=== PATIENT | male | born 1965 | race Caucasian/White ===

== ENCOUNTER → 2016-12-27 | Outpatient (CLI) | payer BC ==
[~2016-12-27] MED LIST: ALPR-411 PO; ASPI81TA28; ATEN-173 PO; ATOR-22 PO; EFFSR75 PO; MULT-506 PO; OMEG5CAP PO; TRAM-10 PO; VENL150T33 PO; [UNRECOGNIZED DRUG - CODE] PO; [UNRECOGNIZED DRUG - OTHER] NAE
--- NOTE | 2016-12-27 16:38 | DIAGNOSTIC IMAGING REPORT ---
LEFT HIP 2 VIEWS CLINICAL HISTORY: Left hip pain. FINDINGS: AP and frog-leg views of left hip are correlated with pelvic CT dated 09/17/2015. The skeletal structures are well mineralized. No fracture is seen. The joint space of the left hip is well maintained. Minimal sclerotic change is noted in the left sacroiliac joint. The overlying soft tissues are within normal limits. IMPRESSION: Unremarkable radiographic assessment of the left hip. Electronically signed by: Wolfgang Villarreal M.D. 12/27/2016 4:36 PM Dictated Date/Time: 12/27/2016 4:35 PM
== END | disposition home or self-care (01) ==
LOC: C.RAD1850 16:24
PROVIDERS: ATTEND Family Medicine
DX: M25.552 Pain in left hip (principal)

== ENCOUNTER → 2017-04-25 | Outpatient (CLI) | payer OTHER ==
--- NOTE | 2017-04-25 09:10 | DIAGNOSTIC IMAGING REPORT ---
CHEST 2 VIEWS ROUTINE HISTORY: 52 years-old Male R05 COUGH acute cough COMPARISON: Chest radiograph 11/04/2013 TECHNIQUE: PA and lateral views of the chest FINDINGS: Cardiac silhouette is again mildly enlarged. There is no pneumothorax, pleural effusion, focal airspace consolidation or overt pulmonary edema. The bones of the chest appear grossly intact. Remote right-sided rib fractures are again noted. IMPRESSION: Mild cardiomegaly without acute process. The above report was generated using voice recognition software. It may contain grammatical, syntax or spelling errors. Electronically signed by: Lee Bonilla M.D. 04/25/2017 9:09 AM Dictated Date/Time: 04/25/2017 9:07 AM
== END | disposition home or self-care (01) ==
LOC: C.RAD1850 08:51
PROVIDERS: ATTEND Family Medicine
DX: R05 Cough (principal); I51.7 Cardiomegaly

== ENCOUNTER → 2017-04-25 | Outpatient (CLI) | payer OTHER ==
--- NOTE | 2017-05-01 08:59 | PULMONARY FUNCTION TEST ---
Spirometry shows a mild decrease in forced vital capacity and FEV1 with a normal FEV1/FVC ratio. Mid flow rates were decreased to 54% of predicted. Repeat study done following bronchodilators showed no significant change in function.
== END | disposition home or self-care (01) ==
LOC: C.RC 12:03
PROVIDERS: ATTEND Family Medicine
DX: R05 Cough (principal)

== ENCOUNTER 2018-07-22 10:25 | Observation (INO) ==
--- OUTSIDE RECORDS SUMMARY | 2018-07-22 10:28 | External Medical Summary | Continuity of Care Document ---
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) Seasonal allergies (477.9) (J30.2) Esophagitis (530.10) (K20.9) History of Need for hepatitis C screening test (V73.89) (Z11 .59) Status: Resolved Chronic pancreatitis (577.1) (K86.1) Hypertension (401.9) (I10) Hyperglycemia (790.29) (R73.9) Hypercholesterolemia (272.0) (E78.00) Unintentional weight loss (783.21) (R63.4) Elevated lipase (790.5) (R74.8) Early satiety (780.94) (R68.81) Microscopic hematuria (599.72) (R31.29) Depression (311) (F32.9) Anxiety (300.00) (F41.9) Aneurysm (442.9) (I72.9) Allergies and Adverse Reactions THEODORE Inhibitors (Allergy) Reaction: Cough Procardia CAPS (Allergy) Zocor TABS (Allergy) Medications oxyCODONE-Acetaminophen 5-325 MG Oral Ta blet; TAKE 1 TABLET EVERY 4 HOURS NEEDED FOR PAIN. Start: 18-May-2016 Quantity: 45 Refills: 0 Azelastine HCl - 0.1 % Nasal Solution; USE 2 SPRAYS IN EACH NOSTRIL TWICE A DAY JAMISON Meeks Start: 21-Jul-2014 Quantity: 3 30 ML Bottle Refills: 1 Atorvastatin Calcium 20 MG Oral Tablet; Take 1 tablet daily as directed JAMISON Meeks Start: 03-Jul-2016 Quantity: 90 Refills: 2 Atenolol 50 MG Oral Tablet; Take 1 tablet twice a day JAMISON Meeks Start: 05-Feb-2017 Quantity: 180 Refills: 0 Ginkgo Biloba 200 MG Oral Capsule Start: 28-Sep-2011 Refills: 0 Fish Oil 1200 MG Oral Capsule Start: Sep-2011 Refills: 0 ALPRAZolam 0.5 MG Oral Tablet; TAKE 1 TABLET 3 times d aily PRN JAMISON Meeks Quantity: 90 Refills: 0 Venlafaxine HCl ER 150 MG Oral Capsule E xtended Release 24 Hour; TAKE 1 CAPSULE Daily JAMISON Meeks Start: 03-Jul-2016 Quantity: 90 Refills: 2 Colace 100 MG Oral Capsule; 1 CAP BY MOUTH TWICE DAILY (DX: CONSTIPATION ) Start: 18-May-2016 Refills: 0 Losartan Potassium 25 MG Oral Tablet; Take 1 tablet daily Ri JAMISON edouard Start: 31-Oct-2016 Quantity: 90 Refills: 2 traMADol HCl TABS Refills: 0 Triamcinolone Acetonide 0.1 % External C ream; APPLY AND RUB IN A THIN FILM TO AFFECTED AREAS TWICE DAILY.(AM AND PM). JAMISON Meeks Start: 2013 Quantity: 1 30 GM Tube Refills: 11 Venlafaxine HCl ER 75 MG Oral Capsule Ex tended Release 24 Hour; TAKE 1 CAPSULE DAILY IN THE EVENING JAMISON Mekes Start: 31-Oct-2016 Quantity: 90 Refills: 2 Omeprazole 20 MG Oral Capsule Delayed Re lease; TAKE 2 CAPSULES DAILY EVERY MORNING BEFORE BREAKFAST. Refills: 0 Zenpep [id number] UNIT CPEP Start: Refills: 0 Amitriptyline HCl - 25 MG Oral Tablet; TAKE 1 TABLET AT BEDT DANIEL. Start: 24-Jan-2016 Quantity: 30 Refills: 3 Procedures History of Spinal Arthrodesis Status: Co mpleted Immunizations Immunizations not documented Family History Mother Family history of Thyroid Status: Active Father Family history of myocardial infarction (V17.3) (Z82.49) Sta tus: Active Social History - Smoking Status Former smoker Plan of Treatment Planned Observations Planned Goals not documented Results No Known Results Results not documented Encounters Appointment; Alistair Meeks CRNP 25-Jul-2016 15:40 Encounter Diagnosis: Problem not documented
[2018-07-22 11:00] LABS: Basophils # (auto) 0.05 K/uL (0-0.2); Basophils % (auto) 0.6 %; Eosinophils # (auto) 0.31 K/uL (0-0.5); Eosinophils % (auto) 3.6 %; Hematocrit (blood only) 46.3 % (42-52); Hemoglobin 16.1 g/dL (14.0-18.0); Immature Granulocytes # (auto) 0.02 K/uL (0.00-0.02); Immature Granulocytes % (auto) 0.2 %; Lymphocytes # (auto) 2.02 K/uL (1.2-3.4); Lymphocytes % (auto) 23.4 %; Mean Corpuscular Hgb Conc 34.8 g/dL (32-36); Mean Corpuscular Volume 86.9 fL (80-100); Mean Platelet Volume 10.5 fL (7.4-10.4); Monocytes # (auto) 0.73 K/uL (0.11-0.59); Monocytes % (auto) 8.5 %; Neutrophils % (auto) 63.7 %; Platelet Count 214 K/uL (130-400); RDW Coefficient of Variation 13.4 % (11.5-14.5); RDW Standard Deviation 42.7 fL (36.4-46.3); Red Blood Count 5.33 M/uL (4.7-6.1); White Blood Count 8.63 K/uL (4.8-10.8)
--- NOTE | 2018-07-22 11:24 | XRay Report ---
XR chest 1V portable HISTORY: Atypical Chest Pain COMPARISON: Chest 11/04/2013. FINDINGS: There are low lung volumes. The cardiac silhouette remains mildly enlarged. This remains un changed. Old, healed right-sided rib fractures. No effusions. No pneumothorax. IMPRESSION: No significant change compared to the prior study. No acute process. Electronically signed by: Yuri Del Toro M.D. 07/22/2018 11:22 AM
[2018-07-22 11:27] LABS: BUN Creatinine Ratio 23.2 (10-20); Blood Urea Nitrogen 36 mg/dl (7-18); Calcium 9.5 mg/dl (8.5-10.1); Carbon Dioxide 25 mmol/L (21-32); Chloride 100 mmol/L (98-107); Est GFR (African American) 57.1; Est GFR (Non-African American) 49.3; Glucose 130 mg/dl (70-99); Potassium 4.2 mmol/L (3.5-5.1); Sodium 134 mmol/L (136-145)
[2018-07-22 11:29] LABS: Troponin I < 0.015 ng/ml (0-0.045)
--- NOTE | 2018-07-22 12:29 | History & Physical Report ---
Date of Service July 22, 2018 Assessment & Plan (1) Atypical chest pain: Observation with telemetry. Serial troponin enzymes. Continue aspirin, metoprolol, atorvastatin, await cardiology consultation Present on Admission?: Yes (2) RYLAND (acute kidney injury): Hold diuretics. Administer IV fluids. Repeat lab tomorrow Present on Admission?: Yes (3) HTN (hypertension): Treated with metoprolol and valsartan. Will follow History of Present Illness Chief Complaint: Chest discomfort while walking Primary Care Provider: Mariela Schulz MD 53-year-old male with a history of hypertension who for the past several months has had chest discomfort and shortness of breath mostly at rest and with walking. He states that he could walk up a flight of steps however without any symptoms at all. He does not exercise. Today he had a particularly bad episode of chest discomfort with shortness of breath and diaphoresis while walking. Symptoms resolved completely in the ED. Troponin is normal. Chest x-ray is negative. Creatinine is 1.5 and he is on diuretics. He probably is mildly volume depleted. Diuretics will be withheld and IV fluids administered with lab repeated tomorrow in the event that cardiac catheterization is necessary. He recently had an outpatient cardiac echo which will not be repeated. He was actually scheduled for outpatient stress testing later today. He is placed in observation status with telemetry. Allergies Allergy/AdvReac Type Severity Reaction Status Date / Time VINE VETANOABLES Allergy Severe THROAT Uncoded 07/22/18 11:25 SWELLS TREE NUTS Allergy Intermediate throat Uncoded 07/22/18 11:25 swelling FRUITS Allergy Unknown unknown Uncoded 07/22/18 11:25 nkda Allergy Unknown nkda Uncoded 07/22/18 11:25 Home Medications Home Medications Medication Instructions Recorded Confirmed Type aspirin [Aspir-81] 81 mg PO DAILY 07/22/18 07/22/18 History atorvastatin 20 mg PO HS 07/22/18 07/22/18 History ginkgo biloba 120 mg PO DAILY 07/22/18 07/22/18 History hydrochlorothiazide 25 mg PO DAILY 07/22/18 07/22/18 History metoprolol tartrate 100 mg PO BID 07/22/18 07/22/18 History multivitamin 1 tab PO DAILY 07/22/18 07/22/18 History omeprazole 20 mg PO DAILY 07/22/18 07/22/18 History spironolactone 25 mg PO DAILY 07/22/18 07/22/18 History valsartan 320 mg PO DAILY 07/22/18 07/22/18 History venlafaxine 150 mg PO DAILY 07/22/18 07/22/18 History Past Med/Surg History Medical History RYLAND (acute kidney injury) (Acute) Atypical chest pain Chronic back pain (Acute) Chronic back pain (Acute) Ear infection (Acute) HTN (hypertension) (Chronic) Family History Other No pertinent family history Social History Preferred Language: Upper Sorbian Communication Ability: Effective 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 Beliefs That Will Affect Care: None Current Living Situation: Spouse Other Information That Helps Us Care for You: No Feels Safe at Home: Yes Safety Concerns: Feels Safe At This Time Smoking Status: Former smoker Tobacco Type: cigarettes Cigarettes Per Day: few now and then Do You Dip or Chew Tobacco: No Smoking End Date: May 2018 Second Hand Exposure: No Tobacco Cessation Education Requested by Patient: No Hx Alcohol Use: Yes Hx Substance Use: No Review of Systems Review of Systems: All systems reviewed & are unremarkable except as noted in HPI & below Cardiovascular: + chest pain Physical Exam Constitutional: WD/WN, vitals as above Eyes: PERRL, conjunctivae normal, anicteric sclerae ENMT: external ear and nose normal, oropharynx normal Neck: trachea midline, no thyromegaly Respiratory: normal respiratory effort, lungs clear to auscultation Cardiovascular: RRR, no murmur, no edema Gastrointestinal (Abdomen): normal bowel sounds, soft, nontender, no hepatosplenomegaly Musculoskeletal: no cyanosis or clubbing, extremities motor strength 5/5 Skin: no rashes, warm and dry Neurologic: CN's II-XI intact bilaterally and moves all extremities; no focal motor deficits Results & Data Vital Signs (Past 12 Hours) Vital Signs Temp Pulse Resp BP Pulse Ox 07/22/18 11:30 78 18 122/86 95 07/22/18 11:01 80 13 111/79 96 07/22/18 10:54 74 16 94 07/22/18 10:29 36.5 C 89 18 130/89 98 Laboratory Results 07/22/18 10:41 07/22/18 10:41
[2018-07-22] MEDS ORDERED: ZOLPIDEM TARTRATE 5 MG TAB PO PRN (13:50)
[2018-07-22] MEDS ORDERED: ONDANSETRON INJ 2 MG/ML 2 ML VIAL IV PRN (13:50)
[2018-07-22] MEDS ORDERED: ACETAMINOPHEN 325 MG TAB PO PRN (13:50)
[2018-07-22] MEDS ORDERED: NITROGLYCERIN SL 0.4 MG/TAB TAB SL PRN (13:50)
[2018-07-22] MEDS ORDERED: ALUMINUM/MAGNESIUM SUSP 30 ML UDC PO PRN (13:50)
[2018-07-22] MEDS: SODIUM CHLORIDE 0.9% 1000ML 1,000 ML IV SCH (14:53)
[2018-07-22] MEDS ORDERED: ENOXAPARIN INJ 40 MG/0.4 ML SYR SQ SCH (16:00)
--- NOTE | 2018-07-22 16:42 | Emergency Department Note ---
Entered by Halina Rosado acting as a scribe for Cem Leonardo History of Present Illness General Chief complaint: Chest Pain Stated complaint: CHEST PAIN,SWEATING,HIGH HEADED Time Seen by Provider: 07/22/18 10:41 Source: patient Limitations: no limitations History of Present Illness Onset (ago): hour(s) (1.5) Location: chest Pain Consistency: + constant Maximum Pain Intensity: 3 Current Pain Intensity: 2 Quality: + other ("tightness") Associated symptoms: + denies other symptoms (LOC, coughing up blood ), + diaphoresis and + shortness of breath Treatments prior to arrival: other (Aspirin) The patient is a 53 year old male who presents to the ED complaining of constant chest pain that began this morning at 0915. He describes the chest pain as "tightness in his whole chest," noting that the pain is a 2/10 in severity. The patient notes that he was fasting for a stress test at [address] Velasquez. He complains of SOB and diaphoresis. The patient denies any LOC, coughing up blood, history of blood clots, and current use of steroids. He denies taking any nitroglycerin [employer]. The patient notes that he took Aspirin [employer]. Home Medications Home Medications Medication Instructions Recorded Confirmed Type aspirin [Aspir-81] 81 mg PO DAILY 07/22/18 07/22/18 History atorvastatin 20 mg PO HS 07/22/18 07/22/18 History ginkgo biloba 120 mg PO DAILY 07/22/18 07/22/18 History hydrochlorothiazide 25 mg PO DAILY 07/22/18 07/22/18 History metoprolol tartrate 100 mg PO BID 07/22/18 07/22/18 History multivitamin 1 tab PO DAILY 07/22/18 07/22/18 History omeprazole 20 mg PO DAILY 07/22/18 07/22/18 History spironolactone 25 mg PO DAILY 07/22/18 07/22/18 History valsartan 320 mg PO DAILY 07/22/18 07/22/18 History venlafaxine 150 mg PO DAILY 07/22/18 07/22/18 History Allergies Allergy/AdvReac Type Severity Reaction Status Date / Time VINE VEGTABLES Allergy Severe THROAT Uncoded 07/22/18 11:25 SWELLS TREE NUTS Allergy Intermediate throat Uncoded 07/22/18 11:25 swelling FRUITS Allergy Unknown unknown Uncoded 07/22/18 11:25 nkda Allergy Unknown nkda Uncoded 07/22/18 11:25 Past Med/Surg History Medical History RYLAND (acute kidney injury) (Acute) Atypical chest pain Chronic back pain (Acute) Chronic back pain (Acute) Ear infection (Acute) HTN (hypertension) (Chronic) Family History Other No pertinent family history Social History Preferred Language: Kiswahili Communication Ability: Effective Resident Care Associate Required: No Beliefs That Will Affect Care: None Current Living Situation: Spouse Other Information That Helps Us Care for You: No Feels Safe at Home: Yes Safety Concerns: Feels Safe At This Time Smoking Status: Former smoker Tobacco Type: cigarettes Cigarettes Per Day: few now and then Do You Dip or Chew Tobacco: No Smoking End Date: May 2018 Second Hand Exposure: No Tobacco Cessation Education Requested by Patient: No Hx Alcohol Use: Yes Hx Substance Use: No Review of Systems See HPI for pertinent positives & negatives. and A total of 10 systems reviewed and were otherwise negative Physical Exam Vital Signs Vital Signs - 24 hr 07/22/18 10:29 07/22/18 10:54 07/22/18 11:01 Temperature 36.5 C Temperature Source Oral Sepsis Recent Fever Within 48 Hours No Sepsis New/Unexplained Change in Mental Status No Sepsis Action Taken by Nursing No Action Required Pulse Rate 89 74 80 Pulse Rate [Apical] Pulse Rate [Finger] Pulse Rate from SpO2 Sensor 81 Pulse Rhythm [Apical] Pulse Strength [Apical] Respiratory Rate 18 16 13 Respiratory Effort / Characteristics Respiratory Depth Normal Respiratory Pattern Blood Pressure 130/89 111/79 Blood Pressure [Right Arm] Blood Pressure Mean 102 89 Blood Pressure Mean [Right Arm] Blood Pressure Position [Right Arm] Pulse Oximetry 98 94 96 Oxygen Delivery Method Room Air Room Air 07/22/18 11:02 07/22/18 11:30 07/22/18 12:30 Temperature Temperature Source Sepsis Recent Fever Within 48 Hours Sepsis New/Unexplained Change in Mental Status Sepsis Action Taken by Nursing Pulse Rate 78 Pulse Rate [Apical] 84 Pulse Rate [Finger] Pulse Rate from SpO2 Sensor 79 Pulse Rhythm [Apical] Pulse Strength [Apical] Respiratory Rate 18 16 Respiratory Effort / Characteristics Non-Labored Respiratory Depth Respiratory Pattern Blood Pressure 122/86 Blood Pressure [Right Arm] 132/89 Blood Pressure Mean 98 Blood Pressure Mean [Right Arm] 103 Blood Pressure Position [Right Arm] Pulse Oximetry 95 94 Oxygen Delivery Method Room Air Room Air 07/22/18 14:00 07/22/18 14:03 07/22/18 15:34 Temperature 36.6 C Temperature Source Oral Sepsis Recent Fever Within 48 Hours Sepsis New/Unexplained Change in Mental Status Sepsis Action Taken by Nursing Pulse Rate 90 93 H Pulse Rate [Apical] 78 Pulse Rate [Finger] Pulse Rate from SpO2 Sensor Pulse Rhythm [Apical] Regular Pulse Strength [Apical] Normal Respiratory Rate 18 Respiratory Effort / Characteristics Non-Labored Respiratory Depth Normal Respiratory Pattern Regular Blood Pressure Blood Pressure [Right Arm] 152/87 H Blood Pressure Mean Blood Pressure Mean [Right Arm] 108 Blood Pressure Position [Right Arm] Lying Pulse Oximetry 93 Oxygen Delivery Method Room Air 07/22/18 15:52 Temperature 36.9 C Temperature Source Oral Sepsis Recent Fever Within 48 Hours Sepsis New/Unexplained Change in Mental Status Sepsis Action Taken by Nursing Pulse Rate Pulse Rate [Apical] Pulse Rate [Finger] 86 Pulse Rate from SpO2 Sensor Pulse Rhythm [Apical] Pulse Strength [Apical] Respiratory Rate 18 Respiratory Effort / Characteristics Respiratory Depth Respiratory Pattern Blood Pressure Blood Pressure [Right Arm] 133/80 Blood Pressure Mean Blood Pressure Mean [Right Arm] 97 Blood Pressure Position [Right Arm] Lying Pulse Oximetry 94 Oxygen Delivery Method Room Air GENERAL: He is oriented to person, place, and time. He appears well-developed and well-nourished. He does not appear distressed. HENT: Exam performed. - Head: Normocephalic and atraumatic. - Right Ear: External ear normal. No mastoid tenderness. - Left Ear: External ear normal. No mastoid tenderness. - Mouth/Throat: The oropharynx is clear and moist. No trismus in the jaw. No dental abscesses or uvula swelling. No oropharyngeal exudate or tonsillar abscesses. EYES: Conjunctivae and EOM are normal. Pupils are equal, round, and reactive to light. Right eye exhibits no discharge. Left eye exhibits no discharge. No scleral icterus. NECK: Normal range of motion. Neck supple. No JVD present. No spinous process tenderness present. No carotid bruit present. No rigidity. No tracheal deviation and normal range of motion present. No Brudzinski's sign and no Kernig's sign noted. CV: Normal rate, regular rhythm, normal heart sounds and intact distal pulses. There is no peripheral edema. Palpable radial pulses bue. PULM/CHEST: Effort normal and breath sounds normal. No respiratory distress. No stridor. He has no wheezes. He has no rales. - Chest Wall: He exhibits no tenderness. ABD: The abdomen is soft. Bowel sounds are normal. He has no distension. No mass is present. There is no tenderness. There is no rebound, no guarding, no Baldwin's sign and no tenderness at McBurney's point. Rovsig negative. MUSC/SKEL: Normal range of motion. There is no peripheral edema, tenderness or deformity. LYMPH: No cervical adenopathy. NEURO: He is alert and oriented to person, place, and time. He has normal strength. No cranial nerve deficit or sensory deficit. Coordination and gait normal. GCS eye subscore is 4. GCS verbal subscore is 5. GCS motor subscore is 6. Cerebellar tests wnl. SKIN: Skin is warm and dry. He is not diaphoretic. PSYCH: He has a normal mood and affect. Behavior is normal. Judgment and thought content normal. Course 1048: The patient was evaluated in room A10. A complete history and physical exam was performed. 1134: Vital signs stable. Labs and imaging within normal limits. Patient will be admitted to the hospital for chest pain and be seen by cardiology and have inpatient stress test as he was supposed to have outpatient stress test this afternoon but could not make it to the outpatient stress test due to his chest pain. Family and the patient state they prefer to stay in the hospital to be evaluated by cardiology for his chest pain. I spoke with Dr. Mtaos, [facility] cardiology, about the patients case. He agrees with the treatment plan. I spoke with Dr. Velasquez, [facility] hospitalist, about the patients case. He will further evaluate the patient. Consultations Consultation #1: I spoke with Dr. Matos, [facility] cardiology, about the patients case. He agrees with the treatment plan. Time: 11:34 Consultation #2: I spoke with Dr. Velasquez [facility] hospitalist, about the patients case. He will further evaluate the patient. Time: 11:36 Administered Medications Enoxaparin Sodium (Lovenox) 40 mg SQ Q24H JULIETA Stop: 08/21/18 15:59 Last Admin: 07/22/18 16:31 Dose: 40 mg Documented by: [id number] Sodium Chloride (Nss 1000ml) 1,000 mls @ 100 mls/hr IV .Q10H JULIETA Stop: 08/21/18 13:49 Last Admin: 07/22/18 14:53 Dose: 100 mls/hr Documented by: [id number] Medical Decision Making Medical Records Attestation: I reviewed the patient's medical records. Home Medications Current Medication List: was personally reviewed by me Laboratory Data Attestation: I reviewed the patient's lab results. Result diagrams: 07/22/18 10:41 07/22/18 10:41 Lab Results 07/22/18 07/22/18 07/22/18 Range/Units 10:41 10:41 14:17 WBC 8.63 (4.8-10.8) K/uL RBC 5.33 (4.7-6.1) M/uL Hgb 16.1 (14.0-18.0) g/dL Hct 46.3 (42-52) % MCV 86.9 (80-100) fL MCH 30.2 (25-34) pg MCHC 34.8 (32-36) g/dL RDW Std Deviation 42.7 (36.4-46.3) fL RDW Coeff of Ulices 13.4 (11.5-14.5) % Plt Count 214 (130-400) K/uL MPV 10.5 H (7.4-10.4) fL Immature Gran % (Auto) 0.2 % Neut % (Auto) 63.7 % Lymph % (Auto) 23.4 % Routt % (Auto) 8.5 % Eos % (Auto) 3.6 % Baso % (Auto) 0.6 % Immature Gran # (Auto) 0.02 (0.00-0.02) K/uL Neut # (Auto) 5.50 (1.4-6.5) K/uL Lymph # (Auto) 2.02 (1.2-3.4) K/uL Routt # (Auto) 0.73 H (0.11-0.59) K/uL Eos # (Auto) 0.31 (0-0.5) K/uL Baso # (Auto) 0.05 (0-0.2) K/uL PT (9.0-12.0) Seconds INR (0.9-1.1) Sodium 134 L (136-145) mmol/L Potassium 4.2 (3.5-5.1) mmol/L Chloride 100 (98-107) mmol/L Carbon Dioxide 25 (21-32) mmol/L Anion Gap 10.0 (3-11) BUN 36 H (7-18) mg/dl Creatinine 1.56 H (0.6-1.4) mg/dl Est Cr Clr Drug Dosing Not Reportable Est GFR ( Amer) 57.1 Est GFR (Non-Af Amer) 49.3 BUN/Creatinine Ratio 23.2 H (10-20) Glucose 130 H (70-99) mg/dl Calcium 9.5 (8.5-10.1) mg/dl Troponin I < 0.015 < 0.015 (0-0.045) ng/ml Lipase 244 (73-393) U/L Specimen Hemolysis 07/22/18 Range/Units 14:17 WBC (4.8-10.8) K/uL RBC (4.7-6.1) M/uL Hgb (14.0-18.0) g/dL Hct (42-52) % MCV (80-100) fL MCH (25-34) pg MCHC (32-36) g/dL RDW Std Deviation (36.4-46.3) fL RDW Coeff of Ulices (11.5-14.5) % Plt Count (130-400) K/uL MPV (7.4-10.4) fL Immature Gran % (Auto) % Neut % (Auto) % Lymph % (Auto) % Routt % (Auto) % Eos % (Auto) % Baso % (Auto) % Immature Gran # (Auto) (0.00-0.02) K/uL Neut # (Auto) (1.4-6.5) K/uL Lymph # (Auto) (1.2-3.4) K/uL Routt # (Auto) (0.11-0.59) K/uL Eos # (Auto) (0-0.5) K/uL Baso # (Auto) (0-0.2) K/uL PT 10.0 (9.0-12.0) Seconds INR 1.0 (0.9-1.1) Sodium (136-145) mmol/L Potassium (3.5-5.1) mmol/L Chloride (98-107) mmol/L Carbon Dioxide (21-32) mmol/L Anion Gap (3-11) BUN (7-18) mg/dl Creatinine (0.6-1.4) mg/dl Est Cr Clr Drug Dosing Est GFR ( Amer) Est GFR (Non-Af Amer) BUN/Creatinine Ratio (10-20) Glucose (70-99) mg/dl Calcium (8.5-10.1) mg/dl Troponin I (0-0.045) ng/ml Lipase (73-393) U/L Specimen Hemolysis Imaging Data Radiologist's Impression: Radiology results as stated below per my review and the radiologist's interpretation: XR chest 1V portable HISTORY: Atypical Chest Pain COMPARISON: Chest 11/04/2013. FINDINGS: There are low lung volumes. The cardiac silhouette remains mildly enlarged. This remains unchanged. Old, healed right-sided rib fractures. No effusions. No pneumothorax. IMPRESSION: No significant change compared to the prior study. No acute process. Electronically signed by: Yuri Del Toro M.D. 07/22/2018 11:22 AM ECG Data Attestation: I personally reviewed and interpreted this ECG as follows: Indication: chest pain Rate (beats per minute): 79 Rhythm: sinus rhythm Findings: + other (TN, QRS, and QTC within normal limits) and + T-wave inversion (mild T-wave inversion in V3); no ST depression and no ST elevation Blood Pressure Blood Pressure Findings: Normal blood pressure Blood Pressure Disposition: did not require urgent referral MDM Narrative Vital signs stable. Labs and imaging within normal limits. Patient will be admitted to the hospital for chest pain and be seen by cardiology and have inpatient stress test as he was supposed to have outpatient stress test this afternoon but could not make it to the outpatient stress test due to his chest pain. Family and the patient state they prefer to stay in the hospital to be evaluated by cardiology for his chest pain. I spoke with Dr. Matos, [facility] cardiology, about the patients case. He agrees with the treatment plan. I spoke with Dr. Velasquez, [facility] hospitalist, about the patients case. He will further evaluate the patient. Impression & Plan Chest pain Discharge Plan Visit Data *Final* Discharge Date/Time: 05/13/19 13:13 Chief Complaint: Chest Pain Stated Complaint: CHEST PAIN,SWEATING,HIGH HEADED ED Provider: Cem Leonardo Discharge Problem: Chest pain Patient Disposition: Admitted As Inpatient Discharge Instructions Interventions: ED Discharge Assessment Last Done: 07/22/18 13:13 Discharge Problem: Chest pain Qualifiers: Chest pain type: unspecified Qualified Code(s): R07.9 - Chest pain, unspecified The scribe's documentation has been prepared under my direction and personally reviewed by me in its entirety. I confirm that the note above accurately reflects all work, treatment, procedures, and medical decision making performed by me.
[2018-07-22] MEDS ORDERED: METOPROLOL TARTRATE 100 MG TAB PO SCH (21:00)
[2018-07-22] MEDS ORDERED: ATORVASTATIN 20 MG TAB PO SCH (21:00)
[2018-07-23] MEDS: SODIUM CHLORIDE 0.9% 1000ML 1,000 ML IV SCH (00:58)
[2018-07-23 03:33] LABS: BUN Creatinine Ratio 20.8 (10-20); Blood Urea Nitrogen 28 mg/dl (7-18); Calcium 8.7 mg/dl (8.5-10.1); Carbon Dioxide 30 mmol/L (21-32); Chloride 100 mmol/L (98-107); Creatinine Clr Calc Pharmacy 80.8 ml/min; Est GFR (African American) 68.6; Est GFR (Non-African American) 59.2; Glucose 129 mg/dl (70-99); Potassium 4.2 mmol/L (3.5-5.1); Sodium 137 mmol/L (136-145)
[2018-07-23 03:38] LABS: Troponin I < 0.015 ng/ml (0-0.045)
[2018-07-23] MEDS ORDERED: VALSARTAN 80 MG TAB PO SCH (09:00)
[2018-07-23] MEDS ORDERED: MULTIVITAMIN TAB PO SCH (09:00)
[2018-07-23] MEDS ORDERED: PANTOprazole 40 MG TAB PO SCH (09:00)
[2018-07-23] MEDS ORDERED: VENLAFAXINE HCL XR 150 MG CAPXR PO SCH (09:00)
[2018-07-23] MEDS ORDERED: ASPIRIN 81 MG ECTAB PO SCH ×2 (09:00)
--- NOTE | 2018-07-23 10:22 | Consultation Report ---
DATE OF CONSULTATION: 07/23/2018 REQUESTING PHYSICIAN: Otto Velasquez MD NURSE MIDWIFE/CLINICAL INSTRUCTOR: Rigo Velasquez DO, [facility]. REASON FOR CONSULTATION: Chest discomfort, known paroxysmal atrial fibrillation and longstanding hypertension. Dear Dr. Velasquez: Thank you for requesting a cardiology consultation on Patrick with regards to his chest discomfort, diaphoresis and associated shortness of breath yesterday. He was seen in the office last week for symptomatic paroxysmal atrial fibrillation. He has had longstanding hypertension, which recently has become much more difficult to control. He notes yesterday morning, he awoke his blood pressure was very high, he just felt off, he went to work. There, he still did not feel well. He became diaphoretic and short of breath and had some chest discomfort. He went to the nurse at the [facility]. His blood pressure, although high, was not as high as it had been at home. He was not hypoglycemic. He was scheduled to have an outpatient stress echo yesterday, and when he contacted the office, we recommended he come to the Emergency Room. He did complete his home sleep study, but we do not have the results. He snores very loudly. He also has very vivid nightmares. This morning, he feels well. His blood pressures while in the hospital have been very well controlled. He presented and was prerenal when he came to the Emergency Room. His hydrochlorothiazide has been on hold and he has received IV fluids with improvement in his creatinine. He denies any presyncope, syncope, lower extremity edema, symptoms of claudication. He has had increasing sweating and shortness of breath with activity. The rest of review of systems is otherwise negative. He denies any significant stressors at home and notes work is no more stressful than usual. PAST MEDICAL HISTORY: 1. Symptomatic paroxysmal atrial fibrillation with a CHADS2-VASc score of 1. 2. Hypertension since 2006, both systolic and diastolic. 3. Likely significant obstructive sleep apnea. 4. History of chronic pancreatitis. 5. GERD. 6. Anxiety. 7. Lumbar and cervical degenerative disc disease. 8. Glucose intolerance. 9. Tobacco use with the use of chewing tobacco. SOCIAL HISTORY: Works for [employer]. He is . He has 5-6 drinks 4-5 days a week. He is chewing 2 pouches of chewing tobacco a week. ALLERGIES: THEODORE INHIBITORS WHICH CAUSED A COUGH. PROCARDIA WHICH CAUSED LOWER EXTREMITY EDEMA AND SIMVASTATIN. FAMILY HISTORY: Sister with hypertension. Dad in the middle of the night, he had a heart attack in his 70s. Mom in her 80s. She had thyroid disease. MEDICATIONS: Reviewed in electronic medical record. PHYSICAL EXAMINATION: GENERAL: He is awake, alert, oriented x3. He is in no acute distress. He is a well-appearing male, looks his stated age. VITAL SIGNS: His pulse is 79, blood pressure 132/80, respirations 18, sat 95%. HEENT: 2+ carotid upstrokes, no evidence of carotid bruits. Jugular venous pressure appeared normal. Sclerae is anicteric. Hearing is normal. LUNGS: Clear to auscultation bilaterally. No rales, rhonchi or wheezing. HEART: Regular rate and rhythm. No appreciable murmurs, rubs or gallops. ABDOMEN: Soft, nontender, nondistended. Positive bowel sounds. EXTREMITIES: No clubbing, cyanosis or edema. PSYCHIATRIC: His affect appeared appropriate. LABORATORY DATA: EKG, sinus rhythm, normal ECG. Chest x-ray was normal. Troponins are negative x4. Sodium 137, potassium 4.2. BUN 28, creatinine 1.34 down from 36 and 1.56. IMPRESSION: 1. Chest discomfort and diaphoresis and shortness of breath with activity. 2. Symptomatic paroxysmal atrial fibrillation with a CHADS2-VASc score of 1. 3. Both systolic and diastolic hypertension. 4. Likely significant obstructive sleep apnea. 5. Intolerance of calcium channel blockers due to lower extremity edema and THEODORE INHIBITORS WHICH CAUSED A COUGH. I made the following recommendations: 1. He will undergo stress echocardiography this morning to rule out obstructive coronary artery disease. It is possible his diaphoresis with activity and shortness of breath may be related to an accelerated hypertensive response to exercise. He has had no recurrent atrial fibrillation, on metoprolol. His CHADS2-VASc score is 1 and therefore he can remain on aspirin therapy. He likely has significant obstructive sleep apnea which is likely contributing to his difficult to control blood pressure as well as his atrial fibrillation. We did order a cortisol and plasma free metanephrines just to rule out other secondary causes of hypertension. In addition, he is scheduled to have an outpatient renal ultrasound as well. He should remain off his hydrochlorothiazide given the fact that he was significantly prerenal with it. His blood pressures here in the hospital are remarkably good. I do wonder if his alcohol consumption is also contributing to his blood pressure and his atrial fibrillation. YAS
--- NOTE | 2018-07-23 12:30 | Discharge Summary ---
Date of Service July 23, 2018 Admission HPI Per Admitting Provider 53-year-old male with a history of hypertension who for the past several months has had chest discomfort and shortness of breath mostly at rest and with walking. He states that he could walk up a flight of steps however without any symptoms at all. He does not exercise. Today he had a particularly bad episode of chest discomfort with shortness of breath and diaphoresis while walking. Symptoms resolved completely in the ED. Troponin is normal. Chest x-ray is negative. Creatinine is 1.5 and he is on diuretics. He probably is mildly volume depleted. Diuretics will be withheld and IV fluids administered with lab repeated tomorrow in the event that cardiac catheterization is necessary. He recently had an outpatient cardiac echo which will not be repeated. He was actually scheduled for outpatient stress testing later today. He is placed in observation status with telemetry. Principal Diagnosis Atypical chest pain, hypertension Discharge Exam Constitutional WD/WN, vitals as above Eyes PERRL, conjunctivae normal, anicteric sclerae ENMT external ear and nose normal, oropharynx normal Neck trachea midline, no thyromegaly Respiratory normal respiratory effort, lungs clear to auscultation Cardiovascular RRR, no murmur, no edema Gastrointestinal (Abdomen) normal bowel sounds, soft, nontender, no hepatosplenomegaly Musculoskeletal no cyanosis or clubbing, extremities motor strength 5/5 Skin no rashes, warm and dry Neurologic CN's II-XI intact bilaterally and moves all extremities; no focal motor deficits Discharge Data Allergies Allergy/AdvReac Type Severity Reaction Status Date / Time VINE VEGTABLES Allergy Severe THROAT Uncoded 07/22/18 11:25 SWELLS TREE NUTS Allergy Intermediate throat Uncoded 07/22/18 11:25 swelling FRUITS Allergy Unknown unknown Uncoded 07/22/18 11:25 nkda Allergy Unknown nkda Uncoded 07/22/18 11:25 Consultations 07/22/18 11:39 ED Decision to Admit Stat 07/22/18 15:16 Consult Cardiology Routine Hospital Course (1) Atypical chest pain: -Serial troponin enzymes negative x 4. -Continue aspirin, metoprolol, atorvastatin, appreciate cardiology consultation -Cardiac stress test normal, but revealed accelerated BP elevation on exertion. -Await outpatient sleep study results; may contribute to HTN -Await cortisol/plasma free metanephrines. -CHADS2-VASc score of 1, c/w asa -Pt should have outpt renal uss performed as well -DC HCTZ for now due to RYLAND. Check BMP at outpatient visit. -Encourage scaling back of alcohol. (2) RYLAND (acute kidney injury): Hold diuretics, recheck BMP. (3) HTN (hypertension): Continue home meds aside from HCTZ. See plan above for investigation and management pending Total Time Total Time Spent Total Time Spent (In Minutes): <30 Discharge Plan Discharge Items Patient Disposition: Home - Self-Care Reason For Visit: CHEST PAIN Discharge Diagnosis: Atypical chest pain Discharge Goals: Decrease discomfort and Learn about illness Activity: Per 'Additional Instructions' section Non-emergency contact: Primary Care Provider and Licensed Journeyman Electrician Call non-emergency contact if: you have any medication questions, your pain is unusual for you and your pain is concerning for you Follow-up/Referrals: Mariela Schulz MD [Primary Care Provider] - Diet: Regular Addtl Provider Instructions: During this visit, you were evaluated for atypical chest pain. Fortunately, your cardiac enzymes and the stress test on your heart showed that your chest pain is unlikely related to acute heart attack or myocardial infarction. CHANGES -Please discontinue your hydrochlorothiazine medication until further notice to protect your kidneys. Your primary care provider will continue to monitor your kidneys and your blood pressure to see if/when that should be restarted. Your symptoms may be associated with your elevated blood pressure, which appears to heighten with exercise. We will await your sleep apnea test results which, if present and properly treated, may in fact help your blood pressure and your paroxysmal atrial fibrillation Several blood tests have been ordered, which are still pending, and your PCP/dishwasher busser will get those results and inform you of those results. These were ordered to investigate other causes of high blood pressure. Please ensure you have the ultrasound of the kidneys performed as planned. We recommend you cut down on your alcohol use as well, which can contribute to high blood pressure. If your symptoms return or worsen, do not hesitate to return to the ER or call your PCP/Licensed Journeyman Electrician Please follow up with your PCP in the next 7-10 days. Prescriptions: Continued multivitamin Tablet 1 tab PO DAILY RF: 0 atorvastatin 20 mg tablet 20 mg PO HS RF: 0 venlafaxine 150 mg capsule,extended release 24hr 150 mg PO DAILY RF: 0 aspirin [Aspir-81] 81 mg Tablet,Delayed Release (Dr/Ec) 81 mg PO DAILY RF: 0 spironolactone 25 mg tablet 25 mg PO DAILY RF: 0 valsartan 320 mg tablet 320 mg PO DAILY RF: 0 metoprolol tartrate 50 mg tablet 100 mg PO BID RF: 0 omeprazole 20 mg capsule,delayed release(DR/EC) 20 mg PO DAILY RF: 0 ginkgo biloba 120 mg Tablet 120 mg PO DAILY RF: 0 Discontinued hydrochlorothiazide 25 mg tablet 25 mg PO DAILY RF: 0 Stand-Alone Forms: Call Back Authorization, [facility]/Other Patient Handouts: Heart Attack Sx, ED Chest Pain Atypical Unkn Cause, ED HTN Established Discharge Orders: Discharge Order (Routine); Ordered 07/23/18 Ordered By: Katarzyna Urias Admission Data Admit Date/Time: 07/22/18 12:25 Attending Provider: Aníbal Holliday Admit Provider: Otto Velasquez Primary Care Provider: Mariela Schulz Other Providers: Otto Velasquez ; Rigo Velasquez Service: Telemetry Other Interventions: Discharge Summary Assessment (RN) Last Done: 07/23/18 13:11 DC Date/Time DO NOT enter until pt leaves facility: 07/23/18 14:32 Supervising Physician Co-Signing Physician Notes I personally examined the patient and verified all stewart points of history and e xam, discussed case, and agree with decision making with Dr Escobar. Chest pain gone. Stress echo negative, wants to go home Vitals noted, in general he is awake and alert, HEENT normocephalic atraumatic mucous membranes are moist. Breathing unlabored no accessory muscle use good effort. Troponins negative stress echo negative. Chest painstable for home. Enzymes negative stress echo negative. Outpatient follow-up Hypertensiona.m. cortisol reasonable, catecholamines and metanephrines pending, continue current regimen and close outpatient follow-up. Stable for discharge Resident Activity Tracking Resident Involvement: Resident Care Provided Care Provided: Adult Hospital Medicine
[2018-07-26 12:35] LABS: Metanephrine, Plasma <25 pg/mL (<=57); Normetanephrine Plasma 211 pg/mL (<=148); Total Metanephrine Plasma 211 pg/mL (<=205)
== END 2018-07-23 14:32 | disposition home or self-care (01) ==
LOC: ED 10:25 → 2E 10:25 → SUATTDRO 12:25 → 2E 13:13

== ENCOUNTER 2020-03-16 17:12 | Inpatient (IN) ==
[2020-03-16] MEDS ORDERED: NITROGLYCERIN SL 0.4 MG/TAB TAB SL STA (17:58)
[2020-03-16 18:10] LABS: Basophils # (auto) 0.02 K/uL (0-0.2); Basophils % (auto) 0.2 %; Eosinophils # (auto) 0.23 K/uL (0-0.5); Eosinophils % (auto) 2.4 %; Hematocrit (blood only) 36.9 % (42-52); Hemoglobin 12.6 g/dL (14.0-18.0); Immature Granulocytes # (auto) 0.01 K/uL (0.00-0.02); Immature Granulocytes % (auto) 0.1 %; Lymphocytes # (auto) 1.23 K/uL (1.2-3.4); Lymphocytes % (auto) 12.9 %; Mean Corpuscular Hemoglobin 29.9 pg (25-34); Mean Corpuscular Hgb Conc 34.1 g/dL (32-36); Mean Corpuscular Volume 87.6 fL (80-100); Mean Platelet Volume 9.5 fL (7.4-10.4); Monocytes # (auto) 1.03 K/uL (0.11-0.59); Monocytes % (auto) 10.8 %; Neutrophils # (auto) 7.02 K/uL (1.4-6.5); Neutrophils % (auto) 73.6 %; Platelet Count 161 K/uL (130-400); RDW Coefficient of Variation 13.9 % (11.5-14.5); RDW Standard Deviation 44.5 fL (36.4-46.3); Red Blood Count 4.21 M/uL (4.7-6.1); White Blood Count 9.54 K/uL (4.8-10.8)
--- NOTE | 2020-03-16 18:11 | Emergency Department Note ---
Impression & Plan SOB (shortness of breath), Community acquired bilateral lower lobe pneumonia, Oxygen desaturation ED Provider Note CHIEF COMPLAINT: Shortness of breath HISTORY OF PRESENTING ILLNESS: This is a 54-year-old male who presents to the emergency department by private vehicle from his doctor's office with complaint of shortness of breath that started yesterday afternoon. Patient states that he was walking to his truck outside and suddenly felt short of breath and like it was difficult for him to catch his breath. He denies any chest pain with the incident and denies any chest pain currently. He states that he was seen last night in the emergency department and discharged. He followed up with his family doctor this afternoon and was felt to be more short of breath today. He also notes that he has been having swelling in his hands and feet and also notices some puffiness in his face. He does note that he was given 1 L of fluids in the ED last night. He states that his symptoms significantly worsen with any form of movement or exertion. He denies any chest pain, but notes a feeling of slight indigestion in the center of his chest that he describes as burning and tightness and rates the pain 6/10. He has not had any fevers or chills, hemoptysis, loss of taste or smell, vomiting or diarrhea. He denies any exposures to COVID-19. He was tested for COVID-19 last night with a [id number] test. He does report a history of dental abscesses and has been treated for these with antibiotics most recently 3 weeks ago. Patient does note that he was in the emergency department 1 week ago for low blood pressure and his blood pressure medications were stopped at that time. He is still taking his flecainide and Coreg for his atrial fibrillation. He denies taking any blood thinner medications. REVIEW OF SYSTEMS: A complete 10 point review of systems was reviewed with the patient with pertinent positives and negatives as per history of present illness. All else were negative. PAST MEDICAL HISTORY: Hypertension, atrial fibrillation, hyperlipidemia SOCIAL HISTORY: Lives at home, he is a former smoker (quit 5 months ago) ALLERGIES: Numerous food allergies, no known drug allergies PHYSICAL EXAM: CONSTITUTIONAL: Pleasant and cooperative. Nontoxic-appearing and in no acute distress, but appears uncomfortable. Well appearing and well nourished. HEENT: Normocephalic, atraumatic. PERRL, EOMI. NECK: Supple, full active range of motion without discomfort. No cervical adenopathy. RESPIRATORY: Significantly diminished throughout, fine crackles heard in the bases bilaterally, no wheezing, rhonchi, or stridor. Labored breathing with mild tachypnea at rest, accessory muscle use noted. No significant respiratory distress. Equal expansion bilaterally. CARDIOVASCULAR: Regular rate and rhythm with no murmurs, rubs or gallops. Normal peripheral perfusion, 2+ distal pulses in all 4 extremities. 2+ pitting edema of the lower extremities. GASTROINTESTINAL: Soft, nontender, nondistended. Obese abdomen. No palpable masses or HSM. Bowel sounds present in all quadrants. MUSCULOSKELETAL: Full range of motion of all joints without discomfort. INTEGUMENTARY: No rash or other significant dermatologic conditions noted. NEUROLOGIC: Alert and oriented X 4 with normal affect. Normal strength and sensation in all 4 extremities. Normal speech. Normal gait observed. ED COURSE AND MEDICAL DECISION MAKING: CC: Patient presenting with complaint of shortness of breath DIFFERENTIAL DIAGNOSIS: Includes, but not limited to pulmonary embolism, acute coronary syndrome, COVID-19 infection, viral illness, bronchitis, pneumonia, pulmonary edema/CHF, COPD exacerbation, aortic dissection, among others. INTERPRETATION OF LABS: No leukocytosis, mild anemia, normal platelets, no significant electrolyte abnormalities, normal renal function, mildly elevated AST and ALT, normal T bili and alk phos. Coagulation factors within normal limits. Troponin undetectable. Pro-BNP within normal limits. Procalcitonin is slightly elevated. COVID-19, influenza A/B and RSV are all negative. IMAGING: XR chest 1V portable CLINICAL HISTORY: Dyspnea COMPARISON STUDY: Chest radiograph performed earlier today. FINDINGS: Lung volumes are normal. There is no pneumothorax or pleural effusion. Right lower lung airspace opacity has increased. There is no evidence for p ulmonary edema. Right hilar prominence is noted. Cardiomediastinal silhouette is stable from earlier exams. IMPRESSION: 1. Increase in right lower lung opacity suggestive of an infectious process. 2. Mild asymmetric right hilar enlargement. This may be due to lymphadenopathy or a vascular abnormality. ----- CT ANGIOGRAPHY OF THE CHEST, PULMONARY EMBOLUS PROTOCOL CLINICAL HISTORY: Dyspnea COMPARISON STUDY: Chest radiograph performed earlier today. TECHNIQUE: Following IV administration of 115 mL of Optiray-320, helical axial images of the chest were obtained utilizing the pulmonary embolus protocol. Maximal intensity projections and sagittal and coronal reformats were viewed on an independent 3D workstation. IV contrast was administered without complication. Automated exposure control was utilized for the study. A dose lowering technique was utilized adhering to the principles of ALARA. CT DOSE: 716.79 mGycm FINDINGS: No pulmonary emboli are identified. There is no thoracic aortic dissection. Size of the heart is at the upper limits of normal. No pericardial effusion is noted. Multiple mildly enlarged mediastinal lymph nodes are noted. Index subcarinal lymph node measures 1.4 cm in short axis diameter. A few calcified left hilar lymph nodes are noted. There is a calcified granuloma within the left lower lobe. Small bilateral pleural effusions are noted, right l arger than left. There is no pneumothorax. Interlobular septal thickening is noted. There are mild groundglass opacities within the right lung with a few tree-in-bud nodules. Some pleural bilateral lower lobe airspace opacities favor atelectasis. There is mild bronchial wall thickening. Several old right rib fractures are noted. There is bilateral gynecomastia and hepatic steatosis. IMPRESSION: 1. No pulmonary emboli identified. 2. Small bilateral pleural effusions with associated airspace opacities favor atelectasis. Interlobular septal thickening consistent with interstitial pulmonary edema. 3. Mild groundglass opacities in tree-in-bud nodules within the right lung suggestive of an infectious process. 4. Hepatic steatosis. 5. Mildly enlarged mediastinal lymph nodes which are likely reactive. EKG: Shows normal sinus rhythm with a rate of 74 bpm, normal intervals, no ST elevation or depression, no ectopy, no significant change when compared to previous EKG from 12:41 AM on 03/16/2020 by my interpretation. MEDICATION RECONCILIATION: I attest that I have personally reviewed the patient's current medication list. INITIAL VITAL SIGNS REVIEW: I reviewed the patient's initial vital signs and interpret them as follows: T: Afebrile; BP: Hypertensive; HR: Within normal limits; RR: Within normal limits; Pulse Ox: Within normal limits on room air. MDM SUMMARY: Patient was evaluated at bedside, history and physical exam performed. Patient is alert and oriented, in no acute distress, but does appear to have labored breathing and is mildly tachypneic. He is not notably hypoxic on room air, but seems air hungry during my initial assessment. He was placed on 2 L nasal cannula and reported improvement in his feeling of shortness of breath. Cardiac monitoring: An order was placed for continuous cardiac monitoring. The monitor shows a rate of 72 beats per with normal sinus rhythm. Lungs are significantly diminished with some fine crackles in the bases. The patient also has pitting edema noted to his lower extremities, which he reports is new. There is no history of heart failure, and notably he had a recent echocardiogram in July 2018 that showed an EF of 60%. No heart murmur heard on auscultation. He does have a history of atrial fibrillation, though he is not on anticoagulation. He did recently have an ED visit 1 week ago for hypotension and he notes that he stopped his blood pressure medications temporarily because of this. He is hypertensive currently. He denies any chest pain, but notes some mild chest discomfort that he describes as indigestion. Patient was seen last night for the same symptoms, at that time he had EKG, chest x-ray, and labs which were unremarkable and a COVID-19 test that was negative. The patient was sent over from his PCPs office due to worsening shortness of breath and concern for development of edema today. Patient did receive 1 L IV fluids last night. Orders were placed at bedside for labs, EKG, chest x-ray, sublingual nitroglycerin, cephiad COVID-19/influenza/RSV testing, and CTA of the chest to evaluate for PE. Patient discussed with Dr. Coleman, who agrees with my assessment, plan, and disposition. Labs and imaging reviewed as above, no significant lab abnormalities noted. Troponin is negative and BNP within normal limits. COVID-19 is again negative, influenza and RSV are also negative. EKG showed normal sinus rhythm with no acute ischemic changes. Chest x-ray notes an increase in right lower lung opacities suggestive of an infectious process, but no evidence for pulmonary edema. The patient did not have any significant improvement in his shortness of breath or hypertension after sublingual nitroglycerin, and reports a headache now. He was given p.o. Tylenol. CTA of the chest was negative for pulmonary embolus, but does demonstrate bilateral pleural effusions with opacities and groundglass opacities, consistent with an infectious process as well as possible interstitial pulmonary edema. I did place the patient on IV Rocephin and azithromycin to cover for pneumonia. The patient became significantly short of breath and became hypoxic with very minimal ambulation, I did not feel that he was safe to be discharged. I spoke with Dr. Guerra, [facility] Hospitalist, who agrees to evaluate the patient for admission. Will defer to the inpatient team regarding management of patient's blood pressure. Patient reassessed multiple times throughout ED stay, he has remained stable, th ough his blood pressure is persistently elevated. No hypoxia at rest and with 2 L nasal cannula. Tachypnea improved with oxygen as well. The patient was updated on all results and plan for admission, all questions were answered to the best of my ability, the patient verbalized understanding and was agreeable to this plan. The patient was stable at time of admission. The chart was completed utilizing [employer] Speech voice recognition software. Grammatical errors, random word insertions, pronoun errors, and incomplete sentences are an occasional consequence of this system due to software casey itations, ambient noise, and hardware issues. Any formal questions or concerns about the content, text, or information contained within the body of this dictation should be directly addressed to the nurse practitioner for clarification. Past Med/Surg History Medical History RYLAND (acute kidney injury) Atypical chest pain Chronic back pain Chronic back pain Ear infection HTN (hypertension) Family History Other No pertinent family history Social History Smoking Status: Former smoker Cigarettes Per Day: few now and then; Second Hand Exposure: No; Do You Dip or Chew Tobacco: No; Hx Alcohol Use: Yes Alcohol type: hard liquor Hx Substance Use: No Preferred Language: Mongolian Communication Ability: Effective [employer] Supervisor Required: No Beliefs That Will Affect Care: None Current Living Situation: Spouse Other Information That Helps Us Care for You: No Feels Safe at Home: Yes Safety Concerns: Feels Safe At This Time Assistive Devices: None and Glasses Assistive Devices Comment: reader glasses Allergies Allergies Allergy/AdvReac Type Severity Reaction Status Date / Time apple Allergy Severe THROAT Verified 03/16/20 19:45 SWELLS banana Allergy Severe THROAT Verified 03/16/20 19:45 SWELLS IF TOO RIPE- A LITTLE GREEN OKAY TO EAT. cantaloupe Allergy Severe THROAT Verified 03/16/20 19:45 SWELLS cucumber Allergy Severe THROAT Verified 03/16/20 19:45 SWELLS pineapple Allergy Severe THROAT Verified 03/16/20 19:45 SWELLS watermelon Allergy Severe THROAT Verified 03/16/20 19:45 SWELLS VINE VEGTABLES Allergy Severe THROAT Uncoded 03/16/20 19:45 SWELLS TREE NUTS Allergy Intermediate throat Uncoded 03/16/20 19:45 swelling Home Meds Home Medications Medication Instructions Recorded Confirmed ginkgo biloba 120 mg PO DAILY 07/22/18 03/16/20 metoprolol tartrate 100 mg PO BID 07/22/18 03/16/20 multivitamin 1 tab PO DAILY 07/22/18 03/16/20 omeprazole 20 mg PO DAILY 07/22/18 03/16/20 spironolactone 25 mg PO DAILY 07/22/18 03/16/20 valsartan 320 mg PO DAILY 07/22/18 03/16/20 venlafaxine 150 mg PO DAILY 07/22/18 03/16/20 aspirin [Aspirin Low-Strength] 81 mg PO DAILY 03/10/20 03/16/20 atorvastatin 40 mg PO DAILY 03/10/20 03/16/20 flecainide 100 mg PO BID 03/10/20 03/16/20 hydrochlorothiazide 25 mg PO DAILY 03/10/20 03/16/20 icosapent ethyl [Vascepa] 2 g PO BID 03/10/20 03/16/20 Results & Data (ED) Vital Signs Vital Signs - 24 hr 03/16/20 17:22 03/16/20 17:45 03/16/20 19:35 Temperature 36.7 C Temperature Source Oral Pulse Rate 79 Pulse Rate [Bilateral Apical] 76 Pulse Rate [Exercises] Pulse Rate [Recovery] Pulse Rate [Resting] Respiratory Rate 18 20 Respiratory Rate [Exercises] Respiratory Rate [Recovery] Respiratory Rate [Resting] Blood Pressure 185/102 H Blood Pressure [Left Arm] 184/106 H Blood Pressure Mean 129 Blood Pressure Mean [Left Arm] 132 Pulse Oximetry 95 95 100 Pulse Oximetry [Exercises] Pulse Oximetry [Recovery] Pulse Oximetry [Resting] Oxygen Delivery Method Room Air Room Air Nasal Cannula Oxygen Flow Rate 2 Sepsis Recent Fever Within 48 Hours No Sepsis New/Unexplained Change in Mental Status No Sepsis Action Taken by Nursing No Action Required 03/16/20 20:23 03/16/20 20:56 03/16/20 21:49 Temperature Temperature Source Pulse Rate Pulse Rate [Bilateral Apical] 76 77 Pulse Rate [Exercises] 104 H Pulse Rate [Recovery] 96 H Pulse Rate [Resting] 80 Respiratory Rate 20 20 Respiratory Rate [Exercises] 32 H Respiratory Rate [Recovery] 28 H Respiratory Rate [Resting] 24 Blood Pressure Blood Pressure [Left Arm] 186/106 H 166/99 H Blood Pressure Mean Blood Pressure Mean [Left Arm] 132 121 Pulse Oximetry 96 98 Pulse Oximetry [Exercises] 90 Pulse Oximetry [Recovery] 88 L Pulse Oximetry [Resting] 94 Oxygen Delivery Method Room Air Room Air Nasal Cannula Oxygen Flow Rate 2 Sepsis Recent Fever Within 48 Hours Sepsis New/Unexplained Change in Mental Status Sepsis Action Taken by Nursing Laboratory Data Result diagrams: 03/16/20 17:59 03/16/20 17:59 Lab Results 03/16/20 03/16/20 03/16/20 Range/Units 17:55 17:55 17:59 WBC 9.54 (4.8-10.8) K/uL RBC 4.21 L (4.7-6.1) M/uL Hgb 12.6 L (14.0-18.0) g/dL Hct 36.9 L (42-52) % MCV 87.6 (80-100) fL MCH 29.9 (25-34) pg MCHC 34.1 (32-36) g/dL RDW Std Deviation 44.5 (36.4-46.3) fL RDW Coeff of Ulices 13.9 (11.5-14.5) % Plt Count 161 (130-400) K/uL MPV 9.5 (7.4-10.4) fL Immature Gran % (Auto) 0.1 % Neut % (Auto) 73.6 % Lymph % (Auto) 12.9 % Rich % (Auto) 10.8 % Eos % (Auto) 2.4 % Baso % (Auto) 0.2 % Neut # (Auto) 7.02 H (1.4-6.5) K/uL Lymph # (Auto) 1.23 (1.2-3.4) K/uL Rich # (Auto) 1.03 H (0.11-0.59) K/uL Eos # (Auto) 0.23 (0-0.5) K/uL Baso # (Auto) 0.02 (0-0.2) K/uL Immature Gran # (Auto) 0.01 (0.00-0.02) K/uL PT (9.0-12.0) Seconds INR (0.9-1.1) APTT (21.0-31.0) Seconds PTT Ratio Sodium (136-145) mmol/L Potassium (3.5-5.1) mmol/L Chloride (98-107) mmol/L Carbon Dioxide (21-32) mmol/L Anion Gap (3-11) BUN (7-18) mg/dl Creatinine (0.6-1.4) mg/dl Est Cr Clr Drug Dosing ml/min Est GFR ( Amer) Est GFR (Non-Af Amer) BUN/Creatinine Ratio (10-20) Glucose (70-99) mg/dl Calcium (8.5-10.1) mg/dl Total Bilirubin (0.2-1) mg/dl AST (15-37) U/L ALT (12-78) U/L Alkaline Phosphatase (45-117) U/L Troponin I (0-0.045) ng/ml NT-Pro-B Natriuret Pep (0-900) pg/ml Total Protein (6.4-8.2) gm/dl Albumin (3.4-5.0) gm/dl Globulin (2.5-4.0) gm/dl Albumin/Globulin Ratio (0.9-2) Procalcitonin (0-0.5) ng/ml COVID-19 Eval Order CovFluRsv at [facility] SARS-CoV-2 (PCR) NEGATIVE (Negative) Influenza Type A (PCR) Negative (Neg) Influenza Type B (PCR) Negative (Neg) RSV (RT-PCR) Negative (Neg) 03/16/20 03/16/20 03/16/20 Range/Units 17:59 17:59 20:45 WBC (4.8-10.8) K/uL RBC (4.7-6.1) M/uL Hgb (14.0-18.0) g/dL Hct (42-52) % MCV (80-100) fL MCH (25-34) pg MCHC (32-36) g/dL RDW Std Deviation (36.4-46.3) fL RDW Coeff of Ulices (11.5-14.5) % Plt Count (130-400) K/uL MPV (7.4-10.4) fL Immature Gran % (Auto) % Neut % (Auto) % Lymph % (Auto) % Rich % (Auto) % Eos % (Auto) % Baso % (Auto) % Neut # (Auto) (1.4-6.5) K/uL Lymph # (Auto) (1.2-3.4) K/uL Rich # (Auto) (0.11-0.59) K/uL Eos # (Auto) (0-0.5) K/uL Baso # (Auto) (0-0.2) K/uL Immature Gran # (Auto) (0.00-0.02) K/uL PT 10.9 (9.0-12.0) Seconds INR 1.0 (0.9-1.1) APTT 28.2 (21.0-31.0) Seconds PTT Ratio 1.0 Sodium 139 (136-145) mmol/L Potassium 4.1 (3.5-5.1) mmol/L Chloride 105 (98-107) mmol/L Carbon Dioxide 29 (21-32) mmol/L Anion Gap 5.0 (3-11) BUN 17 (7-18) mg/dl Creatinine 0.87 (0.6-1.4) mg/dl Est Cr Clr Drug Dosing 146.6 ml/min Est GFR ( Amer) 111.8 Est GFR (Non-Af Amer) 96.5 BUN/Creatinine Ratio 19.2 (10-20) Glucose 89 (70-99) mg/dl Calcium 9.0 (8.5-10.1) mg/dl Total Bilirubin 0.8 (0.2-1) mg/dl AST 63 H (15-37) U/L ALT 136 H (12-78) U/L Alkaline Phosphatase 81 (45-117) U/L Troponin I < 0.015 (0-0.045) ng/ml NT-Pro-B Natriuret Pep 785 (0-900) pg/ml Total Protein 6.9 (6.4-8.2) gm/dl Albumin 3.7 (3.4-5.0) gm/dl Globulin 3.2 (2.5-4.0) gm/dl Albumin/Globulin Ratio 1.2 (0.9-2) Procalcitonin 0.08 (0-0.5) ng/ml COVID-19 Eval Order SARS-CoV-2 (PCR) (Negative) Influenza Type A (PCR) (Neg) Influenza Type B (PCR) (Neg) RSV (RT-PCR) (Neg) Administered Medications Discontinued Medications Acetaminophen (Acetaminophen 500 Mg Tab) 1,000 mg PO NOW STA Stop: 03/16/20 20:20 Last Admin: 03/16/20 20:33 Dose: 1,000 mg Documented by: [id number] Furosemide (Furosemide 40 Mg/4 Ml Vial) 40 mg IV NOW STA Stop: 03/16/20 21:40 Last Admin: 03/16/20 21:47 Dose: 40 mg Documented by: [id number] Ceftriaxone Sodium (Rocephin) 2,000 mg in 70 mls @ 140 mls/hr IV NOW STA Stop: 03/16/20 20:48 Last Infusion: 03/16/20 21:29 Dose: 0 mls/hr Documented by: [id number] Admin: 03/16/20 20:33 Dose: 140 mls/hr Documented by: [id number] Azithromycin 500 mg/ Dextrose 255 mls @ 127.5 mls/hr IV NOW STA Stop: 03/16/20 22:18 Last Infusion: 03/16/20 23:04 Dose: 0 mls/hr Documented by: [id number] Admin: 03/16/20 20:57 Dose: 127.5 mls/hr Documented by: [id number] Ioversol (Optiray 320 125ml) 115 ml IV ONCE ONE Stop: 03/16/20 19:17 Last Admin: 03/16/20 19:16 Dose: 115 ml Documented by: [id number] Nitroglycerin (Nitroglycerin Sl 0.4 Mg/Tab Tab) 0.4 mg SL NOW STA Stop: 03/16/20 17:59 Last Admin: 03/16/20 18:34 Dose: 0.4 mg Documented by: [id number] Discharge Plan Visit Data Chief Complaint: Shortness of Breath/Dyspnea Stated Complaint: SOB, EDEMA ED Provider: Leon Coleman ED Midlevel Provider: Kelsie Alexandra Discharge Problem: SOB (shortness of breath), Community acquired bilateral lower lobe pneumonia, Oxygen desaturation Patient Disposition: Admitted As Inpatient Condition: Good Discharge Instructions Interventions: ED Discharge Assessment Last Done: 03/16/20 22:41
[2020-03-16 18:19] LABS: Partial Thromboplastin Time 28.2 Seconds (21.0-31.0); Prothrombin Time 10.9 Seconds (9.0-12.0)
[2020-03-16 18:27] LABS: Alanine Aminotransferase 136 U/L (12-78); Albumin Level 3.7 gm/dl (3.4-5.0); Aspartate Aminotransferase 63 U/L (15-37); BUN Creatinine Ratio 19.2 (10-20); Blood Urea Nitrogen 17 mg/dl (7-18); Carbon Dioxide 29 mmol/L (21-32); Chloride 105 mmol/L (98-107); Creatinine Clr Calc Pharmacy 146.6 ml/min; Est GFR (African American) 111.8; Est GFR (Non-African American) 96.5; Glucose 89 mg/dl (70-99); Potassium 4.1 mmol/L (3.5-5.1); Sodium 139 mmol/L (136-145)
--- NOTE | 2020-03-16 18:27 | XRay Report ---
XR chest 1V portable CLINICAL HISTORY: Dyspnea COMPARISON STUDY: Chest radiograph performed earlier today. FINDINGS: Lung volumes are normal. There is no pneumothorax or pleural effusion. Right lower lung air space opacity has increased. There is no evidence for pulmonary edema. Right hilar prominence is note d. Cardiomediastinal silhouette is stable from earlier exams. IMPRESSION: 1. Increase in right lower lung opacity suggestive of an infectious process. 2. Mild asymmetric right hilar enlargement. This may be due to lymphadenopathy or a vascular abnormal ity. ACT 112: Negative or not required by law. Electronically signed by: Vickey Villafana M.D. 03/16/2020 6:25 PM
[2020-03-16 18:32] LABS: Albumin Globulin Ratio 1.2 (0.9-2); Alkaline Phosphatase 81 U/L (45-117); Bilirubin,Total 0.8 mg/dl (0.2-1); Globulin 3.2 gm/dl (2.5-4.0); NT Pro B Type Natriuretic Pept 785 pg/ml (0-900); Total Protein 6.9 gm/dl (6.4-8.2); Troponin I < 0.015 ng/ml (0-0.045)
[2020-03-16] MEDS ORDERED: OPTIRAY 320 125ml IV ONE (19:16)
--- NOTE | 2020-03-16 19:34 | CT Scan Report ---
CT ANGIOGRAPHY OF THE CHEST, PULMONARY EMBOLUS PROTOCOL CLINICAL HISTORY: Dyspnea COMPARISON STUDY: Chest radiograph performed earlier today. TECHNIQUE: Following IV administration of 115 mL of Optiray-320, helical axial images of the chest we re obtained utilizing the pulmonary embolus protocol. Maximal intensity projections and sagittal and coronal reformats were viewed on an independent 3D workstation. IV contrast was administered withou t complication. Automated exposure control was utilized for the study. A dose lowering technique wa s utilized adhering to the principles of ALARA. CT DOSE: 716.79 mGycm FINDINGS: No pulmonary emboli are identified. There is no thoracic aortic dissection. Size of the he art is at the upper limits of normal. No pericardial effusion is noted. Multiple mildly enlarged medi astinal lymph nodes are noted. Index subcarinal lymph node measures 1.4 cm in short axis diameter. A few calcified left hilar lymph nodes are noted. There is a calcified granuloma within the left lower lobe. Small bilateral pleural effusions are noted, right larger than left. There is no pneumothorax. Interlobular septal thickening is noted. There are mild groundglass opacities within the right lung w ith a few tree-in-bud nodules. Some pleural bilateral lower lobe airspace opacities favor atelectasis . There is mild bronchial wall thickening. Several old right rib fractures are noted. There is bilate ral gynecomastia and hepatic steatosis. IMPRESSION: 1. No pulmonary emboli identified. 2. Small bilateral pleural effusions with associated airspace opacities favor atelectasis. Interlobul ar septal thickening consistent with interstitial pulmonary edema. 3. Mild groundglass opacities in tree-in-bud nodules within the right lung suggestive of an infectiou s process. 4. Hepatic steatosis. 5. Mildly enlarged mediastinal lymph nodes which are likely reactive. ACT 112: Negative or not required by law. Electronically signed by: Vickey Villafana M.D. 03/16/2020 7:33 PM
[2020-03-16 20:04] LABS: Influenza A virus by PCR Negative (Neg); Influenza B virus by PCR Negative (Neg); RSV by PCR Negative (Neg); SARS CoV2 RNA(COVID-19) InHosp NEGATIVE (Negative)
[2020-03-16] MEDS ORDERED: ACETAMINOPHEN 500 MG TAB PO STA (20:19)
[2020-03-16] MEDS ORDERED: AZITHROMYCIN 500 MG in DEXTROSE 5% 250 ML IV STA (20:19)
[2020-03-16] MEDS ORDERED: cefTRIAXone SODIUM 2,000 MG/70 ML BAG IV STA (20:19)
[2020-03-16] MEDS ORDERED: FUROSEMIDE 40 MG/4 ML VIAL IV STA (21:39)
--- NOTE | 2020-03-16 22:43 | History & Physical Report ---
Date of Service March 16, 2020 Assessment & Plan (1) SOB (shortness of breath): Based on chest imaging, the etiology of his SOB may be cardiac in nature. We will admit him to tele for serial cardiac enzymes and EKGs. We will maintain him on ASA and statin therapy. We will provide gentle diuresis with lasix. An echo will be ordered. If the above measures and evaluation does not improve his SOB, a pulmonary source will be considered and at that point a pulmonary consultation may be pr udent. This pt. will be a level 1 FULL code. History of Present Illness Chief Complaint: My breathing is labored Primary Care Provider: Mariela Schulz MD 54 year old male presented to the [facility] ED at the recommendation of his outpt. physician. The pt. was seen in clinic today due to SOB that began at 4:00 pm yesterday. He notes the SOB is worse with activity. He denies fevers, shakes, chills. No N/V or abdominal pain are noted, but he does note some diarrhea. He did report some slight chest discomfort that lasted a few minutes but has resolved. It as non-radiating. He notes a weight gain of about 15 pound over the past 2 months. In addition, he notes a dental extraction performed due to an abscess about 3 weeks ago. He denies any known exposure to COVID. In the ED, a chest CT was (-) for PE. This study did reveal small bilateral pleural effusions as well as tree in bud formations. He was tested for RSV, COVID-19, and influenza--are were noted to be (-). He was in no distress at the time of my exam. Allergies Allergy/AdvReac Type Severity Reaction Status Date / Time apple Allergy Severe THROAT Verified 03/16/20 19:45 SWELLS banana Allergy Severe THROAT Verified 03/16/20 19:45 SWELLS IF TOO RIPE- A LITTLE GREEN OKAY TO EAT. cantaloupe Allergy Severe THROAT Verified 03/16/20 19:45 SWELLS cucumber Allergy Severe THROAT Verified 03/16/20 19:45 SWELLS pineapple Allergy Severe THROAT Verified 03/16/20 19:45 SWELLS watermelon Allergy Severe THROAT Verified 03/16/20 19:45 SWELLS VINE VEGTABLES Allergy Severe THROAT Uncoded 03/16/20 19:45 SWELLS TREE NUTS Allergy Intermediate throat Uncoded 03/16/20 19:45 swelling Home Medications Medication Instructions Recorded Confirmed Type ginkgo biloba 120 mg PO DAILY 07/22/18 03/16/20 History metoprolol tartrate 100 mg PO BID 07/22/18 03/16/20 History multivitamin 1 tab PO DAILY 07/22/18 03/16/20 History omeprazole 20 mg PO DAILY 07/22/18 03/16/20 History spironolactone 25 mg PO DAILY 07/22/18 03/16/20 History valsartan 320 mg PO DAILY 07/22/18 03/16/20 History venlafaxine 150 mg PO DAILY 07/22/18 03/16/20 History aspirin [Aspirin Low-Strength] 81 mg PO DAILY 03/10/20 03/16/20 History atorvastatin 40 mg PO DAILY 03/10/20 03/16/20 History flecainide 100 mg PO BID 03/10/20 03/16/20 History hydrochlorothiazide 25 mg PO DAILY 03/10/20 03/16/20 History icosapent ethyl [Vascepa] 2 g PO BID 03/10/20 03/16/20 History Past Med/Surg History Medical History RYLAND (acute kidney injury) Atypical chest pain Chronic back pain Chronic back pain Ear infection HTN (hypertension) Family History Other No pertinent family history Social History Smoking Status: Former smoker Cigarettes Per Day: few now and then; Second Hand Exposure: No; Do You Dip or Chew Tobacco: No; Hx Alcohol Use: Yes Alcohol type: hard liquor Hx Substance Use: No Preferred Language: Hungarian Communication Ability: Effective Ward Aide Required: No Beliefs That Will Affect Care: None Current Living Situation: Spouse Other Information That Helps Us Care for You: No Feels Safe at Home: Yes Safety Concerns: Feels Safe At This Time Assistive Devices: None Assistive Devices Comment: reader glasses Review of Systems Constitutional: + fatigue and + weight gain; no fever and no chills Eyes: no diplopia Ear, Nose, Mouth, Throat: no ear pain and no tinnitus Respiratory: + dyspnea on exertion; no cough Cardiovascular: no chest pain and no palpitations Gastrointestinal: no abdominal pain, no nausea and no vomiting Genitourinary: no dysuria Musculoskeletal: no back pain Integumentary: no rash Neurologic: no localized weakness Physical Exam Constitutional: well developed, well nourished and + ill appearing Eyes: no conjunctival abnormality ENMT: Ears: no hearing impairment Neck: trachea midline Respiratory: no respiratory distress and does not use accessory muscles BS are decreased at bases bilaterally, no wheezing noted, no rhonchi Cardiovascular: Rate/Rhythm: regular rate and regular rhythm Gastrointestinal (Abdomen): Percussion/Palpation: abdomen soft; abdomen nontender Musculoskeletal: no calf pain, trace LE edema bilaterally Skin: no rashes, warm and dry Neurologic: CN's II-XI intact bilaterally and moves all extremities Psychiatric: A+Ox3, euthymic affect Results & Data Results & Data ([facility]) Vital Signs (Past 12 Hours) Vital Signs Temp Pulse Pulse Pulse Pulse Pulse Resp 03/16/20 22:31 79 20 03/16/20 21:49 77 20 03/16/20 20:56 104 H 96 H 80 03/16/20 20:23 76 20 03/16/20 19:35 76 20 03/16/20 17:45 03/16/20 17:22 36.7 C 79 18 Resp Resp Resp BP BP Pulse Ox Pulse Ox 03/16/20 22:31 168/100 H 97 03/16/20 21:49 166/99 H 98 03/16/20 20:56 32 H 28 H 24 90 03/16/20 20:23 186/106 H 96 03/16/20 19:35 184/106 H 100 03/16/20 17:45 95 03/16/20 17:22 185/102 H 95 Pulse Ox Pulse Ox 03/16/20 22:31 03/16/20 21:49 03/16/20 20:56 88 L 94 03/16/20 20:23 03/16/20 19:35 03/16/20 17:45 03/16/20 17:22 Code Status & VTE Plan VTE Prophylaxis Plan VTE Prophylaxis will be ordered: Yes Supervising Physician Co-Signing Physician Notes Attending addendum: I have physically seen this patient, have supervised the FRANCISCO JAVIER's activities, and agree with the H&P unless as otherwise noted. Assessment and Plan: Shortness of breath- Chest x-ray suggest fluid overload. Give Lasix 40 mg IV in the ED, and follow response to determine further need. The patient will be admitted to telemetry for serial cardiac enzymes, serial EKG's, cardiac rhythm monitoring and a 2-D echocardiogram with Dopplers. May need GURPREET to assess for possible SBE. Started on simethicone for abdominal distention due to aerophagia Consult cardiology Dental extraction 3 weeks previous- We will CT facial bones to assess for possible abscess/osteomyelitis. Concerning for possible seeding of heart valves and endocarditis. Patient did have a number of days recently where he took no blood pressure medications due to his systolic blood pressure being down into the 60s, which is concerning for possible sepsis and endocarditis. Remaining orders and notations as noted PG Care Time/CCT Total # of Minutes Spent Total Time Spent with Patient: Total time spent is greater than 50% in coordination of care (as documented) at patient's floor/unit and/or counseling patient: Coding Level of Care Code 99695 Initial Inpt Care Lvl 3 Diagnoses SOB (shortness of breath) R06.02
[2020-03-16] MEDS ORDERED: SIMETHICONE 40 MG/0.6 ML 30ML PO ONE (22:57)
[2020-03-16] MEDS ORDERED: NITROGLYCERIN SL 0.4 MG/TAB TAB SL PRN (23:28)
[2020-03-16] MEDS ORDERED: ONDANSETRON INJ 2 MG/ML 2 ML VIAL IV PRN (23:28)
[2020-03-17] MEDS: FLECAINIDE ACETATE 100 MG TABLET PO SCH ×3 (00:13→21:23)
[2020-03-17] MEDS: METOPROLOL TARTRATE 100 MG TAB PO SCH ×3 (00:14→21:22)
[2020-03-17] MEDS: ACETAMINOPHEN 325 MG TAB PO PRN ×2 (00:15→21:39)
[2020-03-17] MEDS ORDERED: SIMETHICONE 80 MG CHEW PO ONE (00:15)
[2020-03-17] MEDS: VASCEPA~ORDER AWAITING ACTION SCH ×2 (00:26→08:31)
[2020-03-17 00:57] LABS: Troponin I < 0.015 ng/ml (0-0.045)
[2020-03-17] MEDS ORDERED: Nursing to Pharmacy Communication SCH (02:00)
--- NOTE | 2020-03-17 07:30 | CT Scan Report ---
CT facial bones wo con CT DOSE: 756.68 mGy.cm CLINICAL HISTORY: Right-sided facial swelling COMPARISON STUDY: No previous studies for comparison. TECHNIQUE: Helical images were acquired in the transverse plane. The study was reviewed and analyzed on the independent 3-D workstation. A dose lowering technique was utilized adhering to the principle s of ALARA. The pterygoid plates appear intact. The zygomatic arches appear intact. The globes appear intact. There is no evidence of orbital emphysema. The orbital walker and floor appear intact. The mandibular condyles appear intact. There is an empty right maxillary wisdom tooth socket. There is an impacted left maxillary wisdom too th. There is polypoid mucosal thickening within the right maxillary sinus. There are no fluid collections to indicate an abscess. There is no is of airway compromise. There are tonsillar calcifications. The parotid and submandibula r glands are unremarkable in appearance. IMPRESSION: 1. No evidence of facial fracture 2. No evidence of abscess. 3. Right maxillary sinus mucosal thickening. ACT 112: Negative or not required by law. Electronically signed by: Bobby Gonzales M.D. 03/17/2020 7:29 AM
[2020-03-17 08:01] LABS: Creatine Kinase MB < 1.0 ng/ml (0.5-3.6); Troponin I < 0.015 ng/ml (0-0.045)
[2020-03-17] MEDS: VENLAFAXINE HCL XR 150 MG CAPXR PO SCH (08:31)
[2020-03-17] MEDS: ASPIRIN 81 MG ECTAB PO SCH (08:31)
[2020-03-17] MEDS: PANTOprazole 40 MG TAB PO SCH (08:31)
[2020-03-17] MEDS: VALSARTAN 80 MG TAB PO SCH (08:31)
[2020-03-17] MEDS: ENOXAPARIN INJ 40 MG/0.4 ML SYR SQ SCH (08:31)
[2020-03-17] MEDS: MULTIVITAMIN TAB PO SCH (08:31)
[2020-03-17] MEDS ORDERED: ATORVASTATIN 40 MG TAB PO SCH ×2 (09:00→21:00)
[2020-03-17] MEDS ORDERED: FUROSEMIDE 40 MG in SYRINGE 0 ML IV SCH (09:00)
--- NOTE | 2020-03-17 10:30 | Hospitalist Progress Note ---
Date of Service March 17, 2020 Assessment & Plan (1) Pneumonia due to COVID-19 virus: b/l, but mainly in RLL on CTA at admission. Falsely negative COVID test yesterday. Today's test POSITIVE. Patient moved to airborne isolation. O2 already weaned off. Repeat cxr this afternoon with improved infiltrates - likely due to removal of pulmonary edema w/ diuresis. As long as patient continues to remain in RA will defer on steroids, remdesivir and plasma. No IV abx - procal negative, and cxr/CT findings are likely from COVID itself + prior pulmonary edema. I informed of pt's positive COVID test and, given they live together, told her she must remain in isolation for minimum 10 days. (2) Acute respiratory failure with hypoxia: 2nd to COVID-19 pneumonia and acute diastolic CHF. Hypoxia resolved s/p lasix IV yesterday and this am. O2 weaned off. Dyspnea markedly improved. (3) Acute diastolic (congestive) heart failure: echo reviewed, care d/w Dr Johnson from cardiology. EF preserved. thus, likely acute diastolic CHF. looks euvolemic today, and cxr is much better. will hold additional lasix doses and follow clinically. cont all prior cardiac meds - BB, ARB, etc. (4) HTN (hypertension): cont all home meds (5) Chronic back pain: (6) PAF (paroxysmal atrial fibrillation): has been in NSR since admission. echo noted - preserved EF. cont BB. cont flecainide. CHADS score previously 1 - thus not on anticoagulation. But now a 2 given volume overload/CHF -- need to revisit issue of anticoagulatio n?? would appreciate cardiology opinion on this. (7) Hyperlipidemia: ast/alt trending down reasonable to cont statin for now (8) Transaminitis: 2nd to COVID-19 infection improving trend (9) DVT prophylaxis: lovenox 40mg daily extensively updated by phone observe overnight for O2 requirement, worsening with his COVID, etc Admission and Anticipated Discharge Date Admission Date: March 16, 2020 Subjective saw patient in ICU (was tele status) before his repeat COVID test was positive. reading his chart I was suspicious about his COVID test from yesterday being falsely positive -- thus, I was in FULL PPE seeing him including N95, gown, gloves, etc. patient reports very sudden onset of extreme fatigue/exhaustion, shortness of br eath, runny nose, diarrhea, anorexia, and weakness starting Sunday. this had been preceded by episode of dizziness and low BP last week prompting ER visit. he also has gained about 15 pounds of weight in the last few weeks/months. he previously had had LE edema. during my visit pt reports that he had traveled for [place] with his to [place] and that he works at [employer]. there are inmates with COVID at this time. patient reports that after getting lasix in ER last pm his dyspnea and chest symptoms are much better. in fact he was laying completely flat in bed during the visit. I removed his oxygen during rounds and after 10 minutes O2 sats were 94% or more in room air. after my visit with him I ordered repeat STAT COVID-19 testing - returned POSITIVE. patient moved to airborne isolation. Review of Systems Constitutional: + fatigue, + malaise, + weakness and + anorexia; no fever and no chills Ear, Nose, Mouth, Throat: no loss of taste/smell Respiratory: + dyspnea on exertion Cardiovascular: + edema (Now resolved per patient ); no chest pain and no dyspnea at rest Gastrointestinal: + diarrhea/loose stools; no vomiting Physical Exam Constitutional: well developed, well nourished and + ill appearing; no acute distress ENMT: external ear and nose normal, oropharynx normal Respiratory: no respiratory distress Auscultation: + rales and + vesicular breath sounds; no rhonchi and no wheezes Cardiovascular: Rate/Rhythm: regular rate and regular rhythm Heart Sounds: normal S1 and normal S2; no murmur Vessels: posterior tibial pulses present a nd dorsalis pedis pulses present; no JVD Extremities: no edema Gastrointestinal (Abdomen): normal bowel sounds, soft, nontender, no hepatosplenomegaly Skin: no rashes, warm and dry Psychiatric: A+Ox3, euthymic affect Lymphatic: + cervical lymphadenopathy (B/l nodes, 1cm each ) Results & Data Results & Data ([facility]) Vital Signs (Past 12 Hours) Vital Signs Temp Pulse Pulse Resp BP BP Pulse Ox 03/17/20 08:03 37.0 C 65 18 168/92 H 96 03/17/20 04:00 36.9 C 70 19 129/77 97 03/17/20 00:00 76 03/16/20 23:30 37.1 C 79 20 171/93 H 93 03/16/20 22:31 79 20 168/100 H 97 repeat labs this am Crp 12.5 dimer normal ast/alt still high wbc count normal bmp wnl PG Care Time/CCT Total # of Minutes Spent Total Time Spent with Patient: Total time spent is greater than 50% in grain scooper rdination of care (as documented) at patient's floor/unit and/or counseling patient: Coding Level of Care Code 16090 Subseq Hosp Care Lvl 3 Diagnoses Pneumonia due to COVID-19 virus U07.1; J12.82 Acute respiratory failure with hypoxia J96.01 Acute diastolic (congestive) heart failure I50.31 HTN (hypertension) I10 Hypertension type: essential hypertension Chronic back pain M54.9; G89.29 Back pain location: back pain in unspecified location Back pain laterality: unspecified PAF (paroxysmal atrial fibrillation) I48.0 Hyperlipidemia E78.2 Hyperlipidemia type: mixed hyperlipidemia Transaminitis R74.01 DVT prophylaxis Z29.9 (1) HTN (hypertension) Hypertension type: essential hypertension Qualified Code(s): I10 - Essential (primary) hypertension (2) Chronic back pain Back pain location: back pain in unspecified location Back pain laterality: unspecified Qualified Code(s): M54.9 - Dorsalgia, unspecified; G89.29 - Other chronic pain (3) Hyperlipidemia Hyperlipidemia type: mixed hyperlipidemia Qualified Code(s): E78.2 - Mixed hyperlipidemia
[2020-03-17 10:50] LABS: Basophils # (auto) 0.01 K/uL (0-0.2); Basophils % (auto) 0.1 %; Eosinophils # (auto) 0.34 K/uL (0-0.5); Eosinophils % (auto) 3.9 %; Hematocrit (blood only) 38.5 % (42-52); Hemoglobin 12.8 g/dL (14.0-18.0); Immature Granulocytes # (auto) 0.03 K/uL (0.00-0.02); Immature Granulocytes % (auto) 0.3 %; Lymphocytes # (auto) 1.41 K/uL (1.2-3.4); Lymphocytes % (auto) 16.1 %; Mean Corpuscular Hemoglobin 29.4 pg (25-34); Mean Corpuscular Hgb Conc 33.2 g/dL (32-36); Mean Corpuscular Volume 88.3 fL (80-100); Mean Platelet Volume 9.9 fL (7.4-10.4); Monocytes # (auto) 1.05 K/uL (0.11-0.59); Neutrophils % (auto) 67.6 %; Platelet Count 151 K/uL (130-400); RDW Coefficient of Variation 13.8 % (11.5-14.5); RDW Standard Deviation 44.9 fL (36.4-46.3); Red Blood Count 4.36 M/uL (4.7-6.1); White Blood Count 8.74 K/uL (4.8-10.8)
[2020-03-17 11:12] LABS: D Dimer 260 ug/L FEU (0-500)
[2020-03-17 11:30] LABS: BUN Creatinine Ratio 14.2 (10-20); C Reactive Protein 12.5 mg/dl (0-0.29); Calcium 9.1 mg/dl (8.5-10.1); Creatinine Clr Calc Pharmacy 112.6 ml/min; Est GFR (African American) 100.7; Est GFR (Non-African American) 86.9; Potassium 3.5 mmol/L (3.5-5.1)
--- NOTE | 2020-03-17 11:59 | Electrocardiogram Report ---
Test Reason : Blood Pressure : / mmHG Vent. Rate : 074 BPM Atrial Rate : 074 BPM P-R Int : 158 ms QRS Dur : 100 ms QT Int : 384 ms P-R-T Axes : -04 047 025 degrees QTc Int : 426 ms Normal sinus rhythm Normal ECG When compared with ECG of 16-MAR-2020 00:41, No significant change was found Confirmed by Leon Johnson ([id number]) on 03/17/2020 11:58:41 AM Referred By: REFERRED SELF Confirmed By:Leon Johnson
--- NOTE | 2020-03-17 12:44 | Electrocardiogram Report ---
Test Reason : Blood Pressure : / mmHG Vent. Rate : 062 BPM Atrial Rate : 062 BPM P-R Int : 182 ms QRS Dur : 100 ms QT Int : 424 ms P-R-T Axes : 046 066 057 degrees QTc Int : 430 ms Normal sinus rhythm Possible Left atrial enlargement Borderline ECG When compared with ECG of 16-MAR-2020 17:20, (unconfirmed) No significant change was found Confirmed by Leon Johnson ([id number]) on 03/17/2020 12:44:25 PM Referred By: REFERRED SELF Confirmed By:Leon Johnson
--- NOTE | 2020-03-17 12:55 | XCELERA ---
[id number]
--- NOTE | 2020-03-17 14:54 | Cardiology Consultation ---
Date of Consultation March 17, 2020 Assessment & Plan (1) Hypervolemia: -although BNP is normal, he has been diuresing well. -does give a history of a 15 lb weight gain over the last 2 months. -fortunately, he has normal left ventricular systolic function on his echocardiogram today. -does have evidence of mild LVH. -this may represent chronic diastolic CHF. (2) PAF (paroxysmal atrial fibrillation): -remains in sinus rhythm on flecainide and metoprolol tartrate. -not currently on long-term anticoagulation as his CHADSVasc score is 1. (3) HTN (hypertension): -borderline control on outpatient regimen. (4) Community acquired bilateral lower lobe pneumonia: -secondary to his COVID-19 infection. History of Present Illness Attending Physician: Aryan Archuleta History of Present Illness Mr. Gonzalez is a 54-year-old male admitted yesterday with shortness of breath, diarrhea, and an abnormal CT scan of the chest. The patient was thought to be volume overloaded, and therefore, this consultation was ordered. Of note, the patient typically follows with Dr. Velasquez in the outpatient setting. Just after I entered the patient's room, his nurse entered the room and explained that there was high suspicion for COVID-19 and that the patient would be revaluated. His COVID-19 test did come back positive. The patient had presented to his primary care office on the day of presentation complaining of shortness of breath which had started on Sunday afternoon at approximately 4:00 p.m. He apparently did not experience any chest discomfort. However, over the last 2 months, the patient has gained 15 lb. He was treated with intravenous Lasix in the emergency room and has had an impressive diuresis. The patient did have a stress echocardiogram performed back in July 2018 which was normal at 7 METS and peak heart rate of 96% predicted maximum. Baseline echocardiogram noted normal left ventricular systolic function and mild LVH. Past medical and surgical history 1. Hypertension 2. Mild LVH 3. Paroxysmal atrial fibrillation 4. GERD 5. Chronic pancreatitis 6. Obstructive sleep apnea 7. Anxiety 8. Lumbar disc disease 9. Cervical disc disease Social history and lives with his . Works at [employer]. Chews 2 pouches of tobacco per week. Has 5-6 drinks 4-5 days each week. Family history Father at 70 from an [place]. Mother in her 80s from old age. Review of systems Negative except for that described above. Allergies Allergy/AdvReac Type Severity Reaction Status Date / Time apple Allergy Severe THROAT Verified 03/16/20 19:45 SWELLS banana Allergy Severe THROAT Verified 03/16/20 19:45 SWELLS IF TOO RIPE- A LITTLE GREEN OKAY TO EAT. cantaloupe Allergy Severe THROAT Verified 03/16/20 19:45 SWELLS cucumber Allergy Severe THROAT Verified 03/16/20 19:45 SWELLS pineapple Allergy Severe THROAT Verified 03/16/20 19:45 SWELLS watermelon Allergy Severe THROAT Verified 03/16/20 19:45 SWELLS VINE VEGTABLES Allergy Severe THROAT Uncoded 03/16/20 19:45 SWELLS TREE NUTS Allergy Intermediate throat Uncoded 03/16/20 19:45 swelling Home Medications Medication Instructions Recorded Confirmed Type ginkgo biloba 120 mg PO DAILY 07/22/18 03/16/20 History metoprolol tartrate 100 mg PO BID 07/22/18 03/16/20 History multivitamin 1 tab PO DAILY 07/22/18 03/16/20 History omeprazole 20 mg PO DAILY 07/22/18 03/16/20 History spironolactone 25 mg PO DAILY 07/22/18 03/16/20 History valsartan 320 mg PO DAILY 07/22/18 03/16/20 History venlafaxine 150 mg PO DAILY 07/22/18 03/16/20 History aspirin [Aspirin Low-Strength] 81 mg PO DAILY 03/10/20 03/16/20 History atorvastatin 40 mg PO DAILY 03/10/20 03/16/20 History flecainide 100 mg PO BID 03/10/20 03/16/20 History hydrochlorothiazide 25 mg PO DAILY 03/10/20 03/16/20 History icosapent ethyl [Vascepa] 2 g PO BID 03/10/20 03/16/20 History Patient History Medical History RYLAND (acute kidney injury) Atypical chest pain Chronic back pain Chronic back pain Ear infection HTN (hypertension) Family History Other No pertinent family history Social History Smoking Status: Former smoker Cigarettes Per Day: few now and then; Second Hand Exposure: No; Do You Dip or Chew Tobacco: No; Hx Alcohol Use: Yes Alcohol type: hard liquor Hx Substance Use: No Preferred Language: Pashto Communication Ability: Effective Transit Specialist Required: No Beliefs That Will Affect Care: None Current Living Situation: Spouse Other Information That Helps Us Care for You: No Feels Safe at Home: Yes Safety Concerns: Feels Safe At This Time Assistive Devices: None Assistive Devices Comment: reader glasses Physical Exam Physical Exam: Physical examination not performed as patient in [address] Results & Data ([facility]) Vital Signs (Past 12 Hours) Vital Signs Temp Pulse Resp BP Pulse Ox 03/17/20 11:00 36.5 C 64 18 143/94 H 98 03/17/20 08:03 37.0 C 65 18 168/92 H 96 03/17/20 04:00 36.9 C 70 19 129/77 97 Laboratory Results CBC notes hemoglobin of 12.6, hematocrit 36.9, white count 9.54, platelet count [id number]. Electrolytes note a sodium of 139, potassium 4.1, chloride 105, bicarb 29, BUN 17, creatinine 0.87, and glucose of 89. Four separate troponin I levels were undetectable less than 0.015. BNP is normal at 785. AST is elevated at 63 as is the ALT at 136. Diagnostic Findings EKG notes normal sinus rhythm without abnormalities. Chest x-ray notes a right lower lobe infiltrate. CT scan of the chest notes no evidence of a pulmonary embolism. There are small bilateral pleural effusions and bibasilar atelectasis. There are ground-glass opacities with tree-in-bud nodules within the right lung suggesting an infectious process.
--- NOTE | 2020-03-17 15:16 | Cardiology Consultation ---
Date of Consultation March 17, 2020 Assessment & Plan (1) Hypervolemia: -although BNP is normal, he has been diuresing well. -does give a history of a 15 lb weight gain over the last 2 months. -fortunately, he has normal left ventricular systolic function on his echocardiogram today. -does have evidence of mild LVH. -this may represent chronic diastolic CHF. (2) PAF (paroxysmal atrial fibrillation): -remains in sinus rhythm on flecainide and metoprolol tartrate. -not currently on long-term anticoagulation as his CHADSVasc score is 1. (3) HTN (hypertension): -borderline control on outpatient regimen. (4) Community acquired bilateral lower lobe pneumonia: -secondary to his COVID-19 infection. History of Present Illness Attending Physician: Aryan Archuleta History of Present Illness Mr. Gonzalez is a 54-year-old male admitted yesterday with shortness of breath, diarrhea, and an abnormal CT scan of the chest. The patient was thought to be volume overloaded, and therefore, this consultation was ordered. Of note, the patient typically follows with Dr. Velasquez in the outpatient setting. Just after I entered the patient's room, his nurse entered the room and explained that there was high suspicion for COVID-19 and that the patient would be revaluated. His COVID-19 test did come back positive. The patient had presented to his primary care office on the day of presentation complaining of shortness of breath which had started on Sunday afternoon at approximately 4:00 p.m. He apparently did not experience any chest discomfort. However, over the last 2 months, the patient has gained 15 lb. He was treated with intravenous Lasix in the emergency room and has had an impressive diuresis. The patient did have a stress echocardiogram performed back in July 2018 which was normal at 7 METS and peak heart rate of 96% predicted maximum. Baseline echocardiogram noted normal left ventricular systolic function and mild LVH. Past medical and surgical history 1. Hypertension 2. Mild LVH 3. Paroxysmal atrial fibrillation 4. GERD 5. Chronic pancreatitis 6. Obstructive sleep apnea 7. Anxiety 8. Lumbar disc disease 9. Cervical disc disease Social history and lives with his . Works at [employer]. Chews 2 pouches of tobacco per week. Has 5-6 drinks 4-5 days each week. Family history Father at 70 from an [place]. Mother in her 80s from old age. Review of systems Negative except for that described above. Allergies Allergy/AdvReac Type Severity Reaction Status Date / Time apple Allergy Severe THROAT Verified 03/16/20 19:45 SWELLS banana Allergy Severe THROAT Verified 03/16/20 19:45 SWELLS IF TOO RIPE- A LITTLE GREEN OKAY TO EAT. cantaloupe Allergy Severe THROAT Verified 03/16/20 19:45 SWELLS cucumber Allergy Severe THROAT Verified 03/16/20 19:45 SWELLS pineapple Allergy Severe THROAT Verified 03/16/20 19:45 SWELLS watermelon Allergy Severe THROAT Verified 03/16/20 19:45 SWELLS VINE VEGTABLES Allergy Severe THROAT Uncoded 03/16/20 19:45 SWELLS TREE NUTS Allergy Intermediate throat Uncoded 03/16/20 19:45 swelling Home Medications Medication Instructions Recorded Confirmed Type ginkgo biloba 120 mg PO DAILY 07/22/18 03/16/20 History metoprolol tartrate 100 mg PO BID 07/22/18 03/16/20 History multivitamin 1 tab PO DAILY 07/22/18 03/16/20 History omeprazole 20 mg PO DAILY 07/22/18 03/16/20 History spironolactone 25 mg PO DAILY 07/22/18 03/16/20 History valsartan 320 mg PO DAILY 07/22/18 03/16/20 History venlafaxine 150 mg PO DAILY 07/22/18 03/16/20 History aspirin [Aspirin Low-Strength] 81 mg PO DAILY 03/10/20 03/16/20 History atorvastatin 40 mg PO DAILY 03/10/20 03/16/20 History flecainide 100 mg PO BID 03/10/20 03/16/20 History hydrochlorothiazide 25 mg PO DAILY 03/10/20 03/16/20 History icosapent ethyl [Vascepa] 2 g PO BID 03/10/20 03/16/20 History Patient History Medical History RYLAND (acute kidney injury) Atypical chest pain Chronic back pain Chronic back pain Ear infection HTN (hypertension) Family History Other No pertinent family history Social History Smoking Status: Former smoker Cigarettes Per Day: few now and then; Second Hand Exposure: No; Do You Dip or Chew Tobacco: No; Hx Alcohol Use: Yes Alcohol type: hard liquor Hx Substance Use: No Preferred Language: Wolof Communication Ability: Effective User Experience Manager Required: No Beliefs That Will Affect Care: None Current Living Situation: Spouse Other Information That Helps Us Care for You: No Feels Safe at Home: Yes Safety Concerns: Feels Safe At This Time Assistive Devices: None Assistive Devices Comment: reader glasses Physical Exam Physical Exam: Physical examination not performed as patient in [address] Results & Data ([facility]) Vital Signs (Past 12 Hours) Vital Signs Temp Pulse Resp BP Pulse Ox 03/17/20 11:00 36.5 C 64 18 143/94 H 98 03/17/20 08:03 37.0 C 65 18 168/92 H 96 03/17/20 04:00 36.9 C 70 19 129/77 97 Laboratory Results CBC notes hemoglobin of 12.6, hematocrit 36.9, white count 9.54, platelet count [id number]. Electrolytes note a sodium of 139, potassium 4.1, chloride 105, bicarb 29, BUN 17, creatinine 0.87, and glucose of 89. Four separate troponin I levels were undetectable less than 0.015. BNP is normal at 785. AST is elevated at 63 as is the ALT at 136. Diagnostic Findings EKG notes normal sinus rhythm without abnormalities. Chest x-ray notes a right lower lobe infiltrate. CT scan of the chest notes no evidence of a pulmonary embolism. There are small bilateral pleural effusions and bibasilar atelectasis. There are ground-glass opacities with tree-in-bud nodules within the right lung suggesting an infectious process. PG Care Time/CCT Total # of Minutes Spent Total Time Spent with Patient: Total time spent is greater than 50% in coordination of care (as documented) at patient's floor/unit and/or counseling patient: Coding Level of Care Code 58052 Inpt Consult Level 4 Diagnoses Hypervolemia E87.70 PAF (paroxysmal atrial fibrillation) I48.0 HTN (hypertension) I10 Community acquired bilateral lower lobe pneumonia J18.9
--- NOTE | 2020-03-17 16:02 | XRay Report ---
XR chest 1V portable CLINICAL HISTORY: covid pneumonia COMPARISON STUDY: Chest radiograph and chest CT March 16, 2020. FINDINGS: There is no pneumothorax. Bilateral pleural effusions shown by chest CT are not evident on this exam, possibly due to technique. Mild cardiomegaly is noted. Interstitial thickening is slightly improved. Right basilar opacity has slightly improved. IMPRESSION: Interval improvement in interstitial thickening and right basilar opacity. ACT 112: Negative or not required by law. Electronically signed by: Vickey Villafana M.D. 03/17/2020 4:01 PM
--- NOTE | 2020-03-17 20:03 | Billing Data ---
Date of Service March 17, 2020 Coding Level of Care Code 61360 Initial Inpt Care Lvl 3
[2020-03-18] MEDS ORDERED: hydrALAZINE HCL 20 MG/ML VIAL IV ONE (00:56)
[2020-03-18 07:34] LABS: BUN Creatinine Ratio 15.7 (10-20); Calcium 9.2 mg/dl (8.5-10.1); Creatinine Clr Calc Pharmacy 110.2 ml/min; Est GFR (African American) 100.7; Est GFR (Non-African American) 86.9
[2020-03-18 08:14] VITALS: PULSE 64
[2020-03-18] MEDS: ASPIRIN 81 MG ECTAB PO SCH (08:56)
[2020-03-18] MEDS: VALSARTAN 80 MG TAB PO SCH (08:56)
[2020-03-18] MEDS: PANTOprazole 40 MG TAB PO SCH (08:56)
[2020-03-18] MEDS: ENOXAPARIN INJ 40 MG/0.4 ML SYR SQ SCH (08:56)
[2020-03-18] MEDS: VENLAFAXINE HCL XR 150 MG CAPXR PO SCH (08:56)
[2020-03-18] MEDS: MULTIVITAMIN TAB PO SCH (08:56)
[2020-03-18] MEDS: ACETAMINOPHEN 325 MG TAB PO PRN (08:59)
[2020-03-18] MEDS: FLECAINIDE ACETATE 100 MG TABLET PO SCH (09:00)
[2020-03-18] MEDS: METOPROLOL TARTRATE 100 MG TAB PO SCH (09:00)
[2020-03-18 11:54] VITALS: TEMP 98.2; O2SAT 93
[2020-03-18] MEDS ORDERED: FUROSEMIDE 20 MG in SYRINGE 0 ML IV ONE (12:15)
--- NOTE | 2020-03-18 14:01 | Discharge Summary ---
Date of Service March 18, 2020 Admission HPI Per Admitting Provider 54 year old male presented to the [facility] ED at the recommendation of his outpt. physician. The pt. was seen in clinic today due to SOB that began at 4:00 pm yesterday. He notes the SOB is worse with activity. He denies fevers, shakes, chills. No N/V or abdominal pain are noted, but he does note some diarrhea. He did report some slight chest discomfort that lasted a few minutes but has resolved. It as non-radiating. He notes a weight gain of about 15 pound over the past 2 months. In addition, he notes a dental extraction performed due to an abscess about 3 weeks ago. He denies any known exposure to COVID. In the ED, a chest CT was (-) for PE. This study did reveal small bilateral pleural effusions as well as tree in bud formations. He was tested for RSV, COVID-19, and influenza--are were noted to be (-). He was in no distress at the time of my exam. Principal Diagnosis COVID 19 pneumonia, no hypoxia Discharge Exam Constitutional WD/WN, vitals as above Neck trachea midline, no thyromegaly Respiratory normal respiratory effort, lungs clear to auscultation Cardiovascular RRR, no murmur, no edema Gastrointestinal (Abdomen) normal bowel sounds, soft, nontender, no hepatosplenomegaly Musculoskeletal no cyanosis or clubbing, extremities motor strength 5/5 Skin no rashes, warm and dry Neurologic patellar DTR's 2+ bilat, sensation intact and PERRL, EOMI, accommodation nl, no face palsy, no dysarthria Psychiatric A+Ox3, euthymic affect Lymphatic no cervical or axillary lymphadenopathy Discharge Data Allergies Allergy/AdvReac Type Severity Reaction Status Date / Time apple Allergy Severe THROAT Verified 03/16/20 19:45 SWELLS banana Allergy Severe THROAT Verified 03/16/20 19:45 SWELLS IF TOO RIPE- A LITTLE GREEN OKAY TO EAT. cantaloupe Allergy Severe THROAT Verified 03/16/20 19:45 SWELLS cucumber Allergy Severe THROAT Verified 03/16/20 19:45 SWELLS pineapple Allergy Severe THROAT Verified 03/16/20 19:45 SWELLS watermelon Allergy Severe THROAT Verified 03/16/20 19:45 SWELLS tree nut Allergy Intermediate Swelling Verified 03/18/20 10:14 of Lip/Tongue/Throat Consultations 03/16/20 21:14 ED Decision to Admit Stat 03/17/20 09:57 Consult Cardiology Routine Ordered Studies 03/16/20 17:45 CT angio chest PE protocol Stat 03/16/20 22:57 CT facial bones wo con Urgent Hospital Course (1) Pneumonia due to COVID-19 virus: b/l, but mainly in RLL on CTA at admission. Falsely negative COVID test initially repeat test POSITIVE. Patient moved to airborne isolation. titrated down to room air quickly, no dyspnea, suspect hypoxia more related to acute heart failure Repeat cxr 03/17/20 in afternoon with improved infiltrates - likely due to removal of pulmonary edema w/ diuresis. As long as patient continues to remain in RA will defer on steroids, remdesivir and plasma. No IV abx - procal negative, and cxr/CT findings are likely from COVID itself + prior pulmonary edema. patient will self monitor for any worsening symptoms, get a finger pulse oximeter to monitor for hypoxia will remain isolated until 03/27/20 (2) Acute respiratory failure with hypoxia: 2nd to COVID-19 pneumonia but mostly due to acute heart failure with preserved ejection fraction Hypoxia resolved s/p lasix IV O2 weaned off. Dyspnea markedly improved. (3) Acute diastolic (congestive) heart failure: echo reviewed, care d/w Dr Johnson from cardiology. EF preserved at 65% he has heart failure with preserved ejection fraction looks euvolemic and cxr is much improved received Lasix IV for three doses total gave him prescription for Lasix 40mg PO daily PRN for edema or total weight gain of 3lb CHF discharge instructions provided he will follow up with Dr. Velasquez (4) HTN (hypertension): continue metoprolol, HTCZ, valsartan, spironolactone (5) PAF (paroxysmal atrial fibrillation): has been in NSR since admission. echo noted - preserved EF. cont metoprolol cont flecainide. CHADS score previously 1 - thus not on anticoagulation. now with acute volume overload, no evidence of systolic heart failure will defer anticoagulation to Dr. Velasquez as he knows him the best feel that this can wait since he is in NSR (6) Hyperlipidemia: ast/alt trending down reasonable to cont statin for now (7) Transaminitis: 2nd to COVID-19 infection improving trend (8) Chronic back pain: Total Time Total Time Spent Total Time Spent (In Minutes): 35 minutes Total Time Includes: Examination of the Patient, Discharge Planning, Medication Reconciliation and Communication With Other Providers Discharge Plan Discharge Items Patient Disposition: Home - Self-Care Reason For Visit: SOB Discharge Diagnosis: COVID 19 infection Acute heart failure with preserved ejection fraction Condition on Discharge: Good Goals: stay in isolation until 03/27/20 stay well nourished, get rest check weight daily Activity: Resume your previous activity Non-emergency contact: Primary Care Provider and Power Line Installer Call non-emergency contact if: you have any medication questions and your symptoms worsen Follow-up/Referrals: Rigo Velasquez DO [Physician] - (03/26/20) Mariela Schulz MD [Primary Care Provider] - (one week) Diet: Heart Healthy Addtl Attending Provider Instructions: Medications: no changes made to home regimen, recommend that you follow up closely with Dr. Velasquez and/or Dr. Schulz LASIX: 40mg daily as needed for weight gain of 3 lbs total COVID 19 infection: evidence of some infiltrates on imaging of lungs, however you are not hypoxic on room air at this time there is no indication to use dexamethasone or Remdesivir please self monitor at home for any worsening of symptoms specifically, if your breathing gets worse at rest, if you are having fevers, more coughing I recommend that you get a finger pulse oximeter to check oxygen levels at home if you are less than 88% then you should return to the hospital, however at this time there is no reason to keep in the hospital you did have some hypoxia on admission but that resolved quickly with Lasix so the hypoxia was felt to be due to volume overload, pulmonary edema Acute heart failure with preserved ejection fraction, volume overload excellent response to Lasix, weight down about 12 lbs no scheduled Lasix needed at home recommend that you check your weight every morning, step on scale after you urinate and prior to eating/drinking if your weight trends up by [address] Velasquez's office for instruction will give you a prescription for Lasix 40mg PO to take as needed for this weight gain you had an echocardiogram that showed a normal ejection fraction at 65% Call 911 and go to the Emergency Room if: * You have tightness or pain in your chest that does not go away with rest or Nitroglycerin * You are very short of breath even with rest Call your doctor if any of the following symptoms or problems start or get worse: * Shortness of breath or difficulty breathing * Wake up at night short of breath * Chest pain * Cough * Swelling of your hands, fee, or legs * More fatigued or tired with your normal activity * Palpitations - sudden fast heart beats WEIGHT * Weigh yourself every morning after using the bathroom. * Use the same scale. * Wear the same amount of clothing. * Write your weight down on your chart. * Call your doctor if you gain more than 2-3 pounds in 1-2 days. MEDICATIONS * Use this discharge instruction sheet for instructions. * Take your medications at the time your doctor ordered. * Do not skip a dose of your medicines. * If you miss a dose of medicine, take as soon as possible, but DO NOT DOUBLE A DOSE. * Read your medicine information when you get home. * Know all of the side effects of your medicine. * Call your doctor's office if you have any side effects. * Be sure all of your doctors know what medicine and herbs you take (including cold, flu, and herbal medicine). * Pain Medicine: If you do not get relief from your pain, please call your doctor for help. Take the following with you to your follow-up doctor appointments: * Weight Chart * Medication List * List of questions Do not drink excessive alcohol, beer or wine. Pending Studies at Discharge: No Stand-Alone Forms: My [facility] [employer], Work/School Release (Inpt), Smoking Cessation Medications and DC Order Prescriptions: New furosemide 40 mg tablet 40 mg PO DAILY PRN (Reason: weight gain) Qty: 30 RF: 0 Continued multivitamin Tablet 1 tab PO DAILY RF: 0 venlafaxine 150 mg capsule,extended release 24hr 150 mg PO DAILY RF: 0 spironolactone 25 mg tablet 25 mg PO DAILY RF: 0 valsartan 320 mg tablet 320 mg PO DAILY RF: 0 metoprolol tartrate 50 mg tablet 100 mg PO BID RF: 0 omeprazole 20 mg capsule,delayed release(DR/EC) 20 mg PO DAILY RF: 0 ginkgo biloba 120 mg Tablet 120 mg PO DAILY RF: 0 atorvastatin 40 mg tablet 40 mg PO DAILY RF: 0 aspirin 81 mg Tablet,Delayed Release (Dr/Ec) 81 mg PO DAILY RF: 0 flecainide 100 mg tablet 100 mg PO BID RF: 0 hydrochlorothiazide 25 mg tablet 25 mg PO DAILY RF: 0 icosapent ethyl [Vascepa] 1 gram capsule 2 g PO BID RF: 0 Discharge Orders: Discharge Order (Routine); Ordered 03/18/20 Ordered By: Jian Vickers Admission Data Admit Date/Time: 03/16/20 21:56 Attending Provider: Jian Vickers Admit Provider: Ravindra Guerra Primary Care Provider: Mariela Schulz Other Providers: Ravindra Guerra ; Leon Johnson Other Interventions: Discharge Summary Assessment (RN) Last Done: 03/18/20 14:12 Coding Level of Care Code D/C Day Management >30 mins Diagnoses Pneumonia due to COVID-19 virus U07.1; J12.82 Acute respiratory failure with hypoxia J96.01 Acute diastolic (congestive) heart failure I50.31 HTN (hypertension) I10 Hypertension type: essential hypertension PAF (paroxysmal atrial fibrillation) I48.0 Hyperlipidemia E78.2 Hyperlipidemia type: mixed hyperlipidemia Transaminitis R74.01 Chronic back pain M54.9; G89.29 Back pain laterality: unspecified Back pain location: back pain in unspecified location
[2020-03-18 14:14] VITALS: BP 168/100
== END 2020-03-18 16:20 | disposition home or self-care (01) | DRG 177 ==
LOC: ED 17:12 → 1E 21:56 → SUATTDRO 21:56 → 1E 22:41 → 2S 03-17 13:35

== ENCOUNTER 2020-11-30 10:55 | Inpatient (IN) ==
[2020-11-30] MEDS ORDERED: METOCLOPRAMIDE HCL INJ 5 MG/ML 2 ML VIAL IV ONE (11:55)
[2020-11-30] MEDS: SODIUM CHLORIDE 0.9% 1000ML 1,000 ML IV SCH ×2 (12:14→19:57)
--- NOTE | 2020-11-30 12:15 | History & Physical Report ---
Date of Service November 30, 2020 Assessment & Plan (1) Abdominal pain: Plan: Patient with progressive persistent abdominal discomfort associate with nausea vomiting and mild elevation of liver function tests predominantly AST and alkaline phosphatase with negative work-up as an outpatient by [place]. Patient unable to keep down oral nutrition with frequent vomiting. Patient will have a repeat CT scan chest abdomen pelvis. Patient will have general surgery consultation for possible consideration of biopsy of liver and intra-abdominal lymph nodes however with history of anticoagulation with Eliquis will likely need to have this postponed until at least 02 December. Patient will have blood cultures if febrile. Antiemetics will be given with parenteral Zofran metoclopramide. Repeat liver function tests and lipase on 12/01 Patient had a negative upper endoscopy in November 10 by [facility] amiodarone can cause elevated liver enzymes but will likely resolve when medication is stopped will not explain hepatosplenomegally or LN in ABD (2) PAF (paroxysmal atrial fibrillation): Plan: Patient continues on carvedilol. Having discontinued amiodarone in October. Previously did have an ablation for his atrial fibrillation Patient does have a history of heart failure preserved ejection fraction which was diagnosed in April 01 when he was here with Covid pneumonia echocardiogram at that time showed preserved ejection fraction 65% (3) Hypercalcemia: Plan: Patient's calcium may be updated nutritional dehydrational influences. Patient be hydrated with crystalloid solution and repeat calcium and parathyroid hormone rechecked in the morning of 12/01. 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 Outpatient imaging shows hepatosplenomegaly with lymph nodes in the abdomen measuring up to 3 cm. Patient reportedly has outpatient work-up including negative hepatitis serology. Negative CMV. Louis-Cohn IgG but negative IgM. Negative Lyme and anaplasmosis. He had an outpatient HIDA scan on November 03 showing an EF of 95% of his gallbladder otherwise normal hepatobiliary scan. Patient did have Covid pneumonia and was admitted and discharged in March 2020 at that time he had mild elevations of transaminases. However the patient's had persistent nausea and some right upper quadrant discomfort since September 2020. Along the way he has had his amiodarone discontinued for which he takes for atrial fibrillation, his atorvastatin discontinued. He also has had decreasing blood pressure and and decreasing carvedilol dosing. He states his amiodarone was discontinued midway through October In the ER he is in mild distress examines with pain in his right upper quadrant worse hepatomegaly is otherwise has no other changes in physical findings that I can see Allergies Allergy/AdvReac Type Severity Reaction Status Date / Time apple Allergy Severe THROAT Verified 11/30/20 11:42 SWELLS banana Allergy Severe THROAT Verified 11/30/20 11:42 SWELLS IF TOO RIPE- A LITTLE GREEN OKAY TO EAT. cantaloupe Allergy Severe THROAT Verified 11/30/20 11:42 SWELLS cucumber Allergy Severe THROAT Verified 11/30/20 11:42 SWELLS pineapple Allergy Severe THROAT Verified 11/30/20 11:42 SWELLS watermelon Allergy Severe THROAT Verified 11/30/20 11:42 SWELLS tree nut Allergy Intermediate Swelling Verified 11/30/20 11:42 of Lip/Tongue/Throat Home Medications Medication Instructions Recorded Confirmed Type multivitamin 1 tab PO QAM 07/22/18 11/30/20 History omeprazole 20 mg capsule,delayed 20 mg PO BID 07/22/18 11/30/20 History release venlafaxine 150 mg 150 mg PO QAM 07/22/18 11/30/20 History capsule,extended release 24 hr apixaban 5 mg tablet (Eliquis) 5 mg PO BID 11/02/20 11/30/20 History levothyroxine 25 mcg tablet 25 mcg PO QAM 11/02/20 11/30/20 History venlafaxine 75 mg capsule,extended 75 mg PO HS 11/02/20 11/10/20 History release 24 hr carvedilol 6.25 mg tablet 6.25 mg PO BID 11/30/20 11/30/20 History ondansetron 4 mg disintegrating 4 mg PO TID PRN 11/30/20 11/30/20 History tablet Past Med/Surg History Medical History Atrial fibrillation dx 1.5 yrs ago; on eliquis; s/p ablation; follows with Dr. Velasquez DDD (degenerative disc disease) Depression Elevated LFTs GERD (gastroesophageal reflux disease) History of CHF (congestive heart failure) History of COVID-19 03/2020; cough, sob, fever, headache, body aches, chills --> hospitalized at [place] pneumonia, chf; resolved. HLD (hyperlipidemia) Hypothyroidism Sleep apnea CPAP Sludge in gallbladder Surgical History History of cardiac radiofrequency ablation 09/15/20 History of colonoscopy History of esophagogastroduodenoscopy (EGD) History of lumbar surgery History of open reduction and internal fixation (ORIF) procedure RUE History of wisdom tooth extraction Family History Other No family history of adverse response to anesthesia No pertinent family history Social History Smoking Status: Never smoker Cigarettes Per Day: few now and then; Second Hand Exposure: No; Do You Dip or Chew Tobacco: No; Hx Alcohol Use: No Hx Substance Use: No Preferred Language: Icelandic Communication Ability: Effective 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 No diarrhea constipation or changes in bowel habits Increased abdominal girth and bloating no dysuria, hematuria or frequency no focal joint pain or swelling no back pain, CVA tenderness or radicular pain no bruising, bleeding or rashes no focal signs of weakness or numbness or altered sensation no complaints of anxiety or depression.. Physical Exam Physical Exam: The patient appeared well nourished and normally developed. Vital signs as documented. Head exam is normocephalic atraumatic no scleral icterus Neck is without JVD, thyromegaly, or carotid bruits. Lungs are clear to auscultation, no focal loss of breath sounds Cardiac exam, Rhythm is regular.. No murmurs, rubs or gallops. Abdominal exam reveals protuberant distended abdomen, normal bowel sounds, soft tender right upper quadrant hepatomegaly noted on exam no fluid wave consistent with ascites Extremities are nonedematous and both pedal pulses are present Neurologic exam is alert and oriented, no focal loss of strength or sensation no asterixis Skin is without bruises or rashes no jaundice Psychologically is without concerns for anxiety or depression Results & Data Results & Data ([facility]) Vital Signs (Past 12 Hours) Vital Signs Temp Pulse Resp BP Pulse Ox 11/30/20 11:23 98.2 F 93 H 18 101/72 93 Diagnostic Findings Patient is pending CT scans and admission CT scan from November 10 of abdomen pelvis shows a significant hepatosplenomegaly enlarged upper abdominal lymph nodes new from September 17, 2015 measuring close to 3 cm. At that time there is description of no acute infectious inflammatory findings otherwise seen moderate constipation was noted Code Status & VTE Plan VTE Prophylaxis Plan VTE Prophylaxis will be ordered: Yes PG Care Time/CCT Total # of Minutes Spent Total Time Spent with Patient: Total time spent is greater than 50% in coordination of care (as documented) at patient's floor/unit and/or counseling patient: Coding Level of Care Code 50083 Initial Inpt Care Lvl 3 Diagnoses Abdominal pain R10.9 PAF (paroxysmal atrial fibrillation) I48.0 Hypercalcemia E83.52 DVT prophylaxis Z29.9 Obstructive sleep apnea G47.33
[2020-11-30] MEDS ORDERED: OPTIRAY 320 100ml IV ONE (14:44)
[2020-11-30] MEDS ORDERED: KETOROLAC TROMETHAMINE 15 MG/ML VIAL IV PRN (15:07)
[2020-11-30] MEDS ORDERED: ONDANSETRON INJ 2 MG/ML 2 ML VIAL IV PRN ×2 (15:07)
[2020-11-30] MEDS ORDERED: ALUMINUM/MAGNESIUM SUSP 30 ML UDC PO PRN (15:07)
[2020-11-30] MEDS ORDERED: PROMETHAZINE HCL 12.5 MG in SODIUM CHLORIDE 0.9% 50 ML IV PRN (15:07)
--- NOTE | 2020-11-30 15:44 | CT Scan Report ---
CT chest diagnostic wo con CT DOSE: 720.65 mGycm CLINICAL HISTORY: 55 years-old Male with weight loss, fever, Lymphagenopathy. Acute weight loss with fever and lymphadenopathy TECHNIQUE: Multiaxial CT images of the chest were performed without contrast. A dose lowering techni que was utilized adhering to the principles of ALARA. COMPARISON: CT abdomen and pelvis of same day, CTA chest 03/16/2020 FINDINGS: Unremarkable thyroid. No adenopathy identified within the chest. Calcified left hilar lymph nodes wit h calcified granuloma of the left lower lobe. The heart is mildly enlarged. No pericardial effusion. Mild to moderate coronary artery calcifications. Mild atherosclerosis of the thoracic aorta without a neurysm. No pneumothorax, pleural effusion, airspace consolidation or overt pulmonary edema. Mild bibasilar at electasis/scarring. Hepatosplenomegaly with suggested hepatic steatosis. Gallbladder sludge. Gynecoma stia. Unremarkable soft tissues. No acute fracture. IMPRESSION: 1. No acute intrathoracic abnormality. 2. No adenopathy. 3. Prior granulomatous disease. 4. Hepatosplenomegaly. ACT 112: Negative or not required by law. Electronically signed by: Steve Bonilla M.D. 11/30/2020 3:42 PM
--- NOTE | 2020-11-30 15:57 | CT Scan Report ---
CT OF THE ABDOMEN AND PELVIS WITH CONTRAST CLINICAL HISTORY: Weight loss. Lymphadenopathy. Evaluate for hepatosplenomegaly. COMPARISON STUDY: CT of the abdomen and pelvis November 10, 2020. Abdominal ultrasound October 14. TECHNIQUE: Following IV administration of 95 mL of Optiray, axial images of the abdomen and pelvis we re obtained from the lung bases to the proximal femurs. Images were reviewed in the axial, sagittal, and coronal planes. IV contrast was administered without complication. Automated exposure control wa s utilized for the study. A dose lowering technique was utilized adhering to the principles of ALARA . CT DOSE: 1037.22 mGycm FINDINGS: Please note that the chest CT will be reported separately. No pneumatosis, free air or por megha venous gas is present. Several enlarged upper abdominal lymph nodes are similar to CT of [facility] 2020 but increased in size since CT of September 17, 2015. Conner hepatis lymph nodes measure up to 1.7 cm in short axis diameter. Moderate hepatosplenomegaly has increased since CT of November 10, 2020. No hepatic or splenic lesions are present. The adrenal glands, kidneys and pancreas are unremarkable. Is no evidence for a bowel obstruction. The appendix is normal. Caliber and wall thickness of small large bowel are normal. Postoperative findings with the spine are present. There is no ascites. There is no pelvic lymphadenopathy. Major vasculature is patent. Subtle infiltration adjacent to the gallb ladder is unchanged. A few small left renal calculi measure up to 3 mm. There are no ureteral calculi and there is no hydronephrosis. IMPRESSION: 1. Moderate hepatosplenomegaly which has increased since CT of November 10, 2020. No change in upper abdominal lymphadenopathy. The findings remain nonspecific. 2. No bowel obstruction. No bowel wall thickening. Normal appendix. ACT 112: Negative or not required by law. Electronically signed by: Vickey Villafana M.D. 11/30/2020 3:55 PM
--- NOTE | 2020-11-30 17:07 | Electrocardiogram Report ---
Test Reason : Blood Pressure : / mmHG Vent. Rate : 079 BPM Atrial Rate : 079 BPM P-R Int : 170 ms QRS Dur : 096 ms QT Int : 372 ms P-R-T Axes : 061 025 -04 degrees QTc Int : 426 ms Normal sinus rhythm Poor R wave progression, consider anterior VT vs. lead placement vs. LVH Nonspecific T wave abnormality Anterior leads Abnormal ECG When compared with ECG of 10-NOV-2020 09:25, Nonspecific T wave abnormality, worse in Anterior leads Confirmed by Yao Rosa ([id number]) on 11/30/2020 5:07:46 PM Referred By: Torrey Patino Confirmed By:Yao Rosa
[2020-11-30] MEDS: PANTOprazole 40 MG TAB PO SCH (19:57)
[2020-11-30] MEDS: carvediloL 6.25 MG TAB PO SCH (19:57)
[2020-11-30] MEDS: METOCLOPRAMIDE HCL INJ 5 MG/ML 2 ML VIAL IV PRN (20:00)
[2020-11-30] MEDS ORDERED: VENLAFAXINE HCL XR 75 MG CAPXR PO SCH (21:00)
[2020-12-01] MEDS: SODIUM CHLORIDE 0.9% 1000ML 1,000 ML IV SCH ×2 (03:34→12:08)
[2020-12-01] MEDS ORDERED: LEVOTHYROXINE SODIUM 25 MCG TABLET PO SCH (06:30)
[2020-12-01 07:32] VITALS: O2SAT 92
[2020-12-01] MEDS: carvediloL 6.25 MG TAB PO SCH (07:50)
[2020-12-01] MEDS: PANTOprazole 40 MG TAB PO SCH (07:50)
[2020-12-01 08:00] LABS: Albumin Level 2.3 gm/dl (3.4-5.0); BUN Creatinine Ratio 11.7 (10-20); Calcium 10.9 mg/dl (8.5-10.1); Creatinine Clr Calc Pharmacy 93.8 ml/min; Est GFR (African American) 95.3 ml/min; Est GFR (Non-African American) 82.2 ml/min; Potassium 3.8 mmol/L (3.5-5.1)
--- NOTE | 2020-12-01 08:00 | Hospitalist Progress Note ---
Date of Service December 01, 2020 Assessment & Plan Admission and Anticipated Discharge Date Admission Date: November 30, 2020 Results & Data Results & Data ([facility]) Vital Signs (Past 12 Hours) Vital Signs Temp Pulse Resp BP BP Pulse Ox 12/01/20 07:29 37.4 C 79 18 157/90 H 92 11/30/20 23:14 37.0 C 74 18 122/64 94
[2020-12-01 08:11] LABS: Albumin Globulin Ratio 0.5 (0.9-2); Globulin 4.2 gm/dl (2.5-4.0); Thyroid Stimulating Hormone 7.31 uIu/ml (0.300-4.500); Total Protein 6.5 gm/dl (6.4-8.2)
[2020-12-01 08:24] LABS: T4 Free Thyroxine 1.58 ng/dl (0.8-1.6)
--- NOTE | 2020-12-01 09:04 | Consultation Report ---
MEDICAL ONCOLOGY CONSULTATION DATE OF SERVICE: 12/01/2020. REASON FOR CONSULTATION: Abdominal lymphadenopathy hepato and splenomegaly. HISTORY OF PRESENT ILLNESS: Mr. Gonzalez is a very pleasant 55-year-old gentleman who is referred to [facility] for unexplained abdominal lymphadenopathy, splenomegaly and enlarged liver. Mr. Gonzalez has been struggling for several months now; basically after undergoing cardiac ablative procedure, his clinic al status seemed to go downhill from there. He reports minimal appetite and 40-pound weight loss. H e also reports B symptoms, fevers, chills, and night sweats and again anorexia and weight loss. He w as seen in consultation by the GI Service who performed EGD and I believe, HIDA scan and found no sig nificant pathology. That said, CT scan of the abdomen and pelvis was performed on reveal ing an enlarged spleen 17.5 cm, hepatomegaly and regional lymphadenopathy, the largest measuring 3.9 x 2.6, and considered a gastrohepatic node. The other nodes are very close to the liver as well. Be cause of the presence of lymphadenopathy, the GI service, particularly the physician derivatives trader, referr ed Mr. Gonzalez to medical oncology for further investigation. When I saw Mr. Gonzalez in the office y , he was quite weak, gaunt in appearance and clearly struggling with symptoms. Thus, recomme nded admission for a complete medical workup. He has undergone a series of infectious disease workup including EBV, Lyme anaplasmosis, all of which were negative. HIDA scan in late October revealed an EF of 95%, otherwise, normal hepatobiliary scan. Around the same time, there were elevations of his liver transaminases, which again were unexplained. Tried to elicit an alcohol history. Apparently, he has been abstinent, but his had imparted that he was drinking whiskey and the patient respond ed, "no, not whiskey, vodka." Thus, I think there is a history here and could lead us to a subsequen t diagnosis moving forward. Obviously with B symptoms present, lymphoproliferative disease is diagno sis of exclusion. Lastly, the patient reported he had been on relatively high doses of amiodarone fo r atrial fibrillation and subsequently has been discontinued. He has been off therapy for close to o ne month. Primary service is requesting a consultation for this ill appearing 55-year-old gentleman with unexplained hepato/splenomegaly and regional lymphadenopathy. PAST MEDICAL HISTORY: Atrial fibrillation, degenerative disk disease, major depressive disorder, matheus vated liver transaminases, gastroesophageal reflux disease, CHF, history of COVID contracted 03/2020, hyperlipidemia, hypothyroidism, and sleep apnea. PAST SURGICAL HISTORY: Cardiac radiofrequency ablation 09/15/2020. He has also had a history of col onoscopy, EGD. History of lumbar surgery, ORIF of the right upper extremity, and wisdom teeth extrac tion. MEDICATIONS: Include omeprazole 20 mg p.o. b.i.d., Effexor 150 mg p.o. daily, apixaban 5 mg p.o. b.i .d., levothyroxine 25 mcg p.o. daily, carvedilol 6.25 mg p.o. b.i.d., Zofran 4 mg p.o. t.i.d. p.r.n. ALLERGIES: APPLE, BANANA, CANTALOUPE, CUCUMBER, PINEAPPLE, WATERMELON AND TREE NUT. SOCIAL HISTORY: He is a modest social cigarette smoker. He is . 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 Again, his alcohol history is somewhat questionable. Negative for illicit substances otherwise. FAMILY HISTORY: Noncontributory. REVIEW OF SYSTEMS: CONSTITUTIONAL: As per HPI, most notably for fevers, chills, sweats, anorexia and a 40-pound weight loss. SKIN: No rashes or lesions. No history of dermatoses. HEENT: Negative for headaches, lightheadedness or dizziness. No dysphagia or sore throat. LYMPH: Positive for lymphadenopathy, mainly in the area of the liver. CARDIAC: History of atrial fibrillation, currently on anticoagulation. No palpitations or angina pr esently. PULMONARY: Negative for COPD. He is not short of breath, dyspneic or orthopneic. No cough or hemop tysis. GASTROINTESTINAL: Positive for bloating. Positive for intermittent nausea. Positive for intermitte nt constipation. He reports no hematochezia, melena or samuel rectal bleeding. GENITOURINARY: No hematuria, dysuria, urinary incontinence. PSYCHIATRIC: Positive for depression. MUSCULOSKELETAL: No focal muscle weakness. No arthralgias or myalgias. NEUROLOGIC: Negative for seizure, stroke or migraine headache. ENDOCRINE: Positive for hypothyroidism. HEMATOLOGIC: Negative for anemia, thrombophilia or bleeding diathesis. PHYSICAL EXAMINATION: GENERAL:Very pleasant 55-year-old gentleman, awake, alert and appropriate, in no acute distress. VITAL SIGNS: Temperature 37, pulse 74, respiratory rate 18, blood pressure 122/64. SKIN: Warm, dry, noncyanotic without petechia, rash or ecchymosis. HEENT: Head atraumatic, normocephalic. Eyes, PERRLA. EOMI. Sclerae are nonicteric. No conjunctiva l injection. Nares patent without rhinorrhea or discharge. Throat is clear. Tongue midline. Mucou s membranes are moist. NECK: Supple without JVD or thyromegaly. LYMPH: No cervical, supraclavicular palpable nodes. HEART: Regular rate and rhythm. No clicks, rubs, murmurs or gallops. LUNGS: Clear to auscultation bilaterally. ABDOMEN: Soft, nontender, nondistended. No rigidity or guarding. Palpable hepato and splenomegaly. MUSCULOSKELETAL: strength and pulses are equal in all 4 quadrants. EXTREMITIES: No clubbing, cyanosis or edema. NEUROLOGIC: He is awake, alert and oriented x3. Cranial nerves are grossly intact. RADIOGRAPHIC DATA: CT scan of the chest, no acute intrathoracic anomaly. No adenopathy is seen. Judy or granulomatous disease is noted. CT of the abdomen and pelvis, moderate hepatosplenomegaly, which has increased since CT of 11/10/2020, no change in abdominal lymphadenopathy. Findings are nonspecif ic. LABORATORY DATA: WBC count 5630, hemoglobin 13.9, platelet count 165,000, white cell differential un remarkable. Sed rate 87. PT 11.9, INR 1.2, PTT 34.2. Sodium 135, potassium 3.9, chloride 100, carb on dioxide 28, BUN 13, creatinine 1.31, glucose 150, calcium 12, corrected with an albumin of 2.6 equ als 13.1. UA pretty much unremarkable with the exception of bilirubin 1+, bilirubin. IMPRESSION: 1. Hypercalcemia. 2. Hepato/splenomegaly. 3. Abdominal lymphadenopathy. 4. Anorexia/weight loss (B symptoms). 5. Atrial fibrillation. 6. CHF by history. PLAN: In summary, Patrick is a very pleasant 55-year-old gentleman who appeared at [facility] yesterday for consultation to evaluate perihepatic lymphadenopathy. The patient and his expressed frustration that despite his ongoing anorexia and weight loss, B symptoms, etc., a diagnosis has not yet been es tablished. Upon review of CT scan, it appears all lymphadenopathy is surrounding the liver, which wo uld suggest probable reaction and not necessarily an underlying lymphoproliferative disease. This ge ntleman also reports a sketchy alcohol history, which needs to be further delved into. Clearly, he s uffers from hypercalcemia, whether that is due to prior granulomatous disease or perhaps an occult ma lignancy, is unknown. I recommended to Mr. Gonzalez and his in the office that focus needs to be placed on the liver, perhaps biopsy, which may require laparoscopy versus radiographic guidance. Ho wever, if laparoscopy is to be done, I would prefer lymph node be harvested as well. With ongoing B symptoms, lymphoproliferative disease is certainly not ruled out. However, in my estimation, I belie ve this gentleman has chronic liver disease, perhaps due to prior alcoholism. I will continue to fol low with Mr. Gonzalez during this hospital stay. Thank you very much for assisting me in the care of this very pleasant, somewhat complex gentleman. Job ID: [id number]
[2020-12-01] MEDS ORDERED: VENLAFAXINE HCL XR 150 MG CAPXR PO SCH (10:15)
--- NOTE | 2020-12-01 13:57 | Surgery Consultation ---
Date of Consultation December 01, 2020 Assessment & Plan (1) Abnormal liver function tests: Conner hepatis nodes not easily biopsied by laparoscopy. Would therefore recommend liver biopsy by less invasive methods, either by radiology or GI. Hao has been on hold for approx 24 hours. Supervising Physician Co-Signing Physician Notes Patient seen and examined, labs and imaging reviewed, agree with above. 55 y/o male with abdominal bloating, weight loss, and non specific findings on CT. Workup unremarkable except for hepatosplenomegaly and portal lymphadenopathy. Surgery consulted for possible liver biopsy and lymph node biopsy. afvss, nad, aaox3. abd soft, mildly distended, ttp in epigastrium and ruq, no guarding. CT reviewed, lymph nodes are in difficult area to access laparoscopically. Liver biopsy can be obtained by less invasive means. Would recommend GI consult for EUS with possible liver biopsy or Radiology for percutanous biopsy. No surgical intervention indicated at this time. surgery will sign off, call with questions or concerns. History of Present Illness Attending Physician: Mariela Schulz MD History of Present Illness 55 y/o male admitted for evaluation of fatigue, elevated LFTs, nausea, weight loss. Symptoms began in May with fatigue. 49 pound weight loss has occurred since September. He has nausea if he doesn't eat eat and after he eats. Had outpatient EGD, US, HIDA which have shown only sludge. Admitted for further evaluation, possible liver and/or lymph node biopsy. Allergies Allergy/AdvReac Type Severity Reaction Status Date / Time apple Allergy Severe THROAT Verified 11/30/20 11:42 SWELLS banana Allergy Severe THROAT Verified 11/30/20 11:42 SWELLS IF TOO RIPE- A LITTLE GREEN OKAY TO EAT. cantaloupe Allergy Severe THROAT Verified 11/30/20 11:42 SWELLS cucumber Allergy Severe THROAT Verified 11/30/20 11:42 SWELLS pineapple Allergy Severe THROAT Verified 11/30/20 11:42 SWELLS watermelon Allergy Severe THROAT Verified 11/30/20 11:42 SWELLS tree nut Allergy Intermediate Swelling Verified 11/30/20 11:42 of Lip/Tongue/Throat Home Medications Medication Instructions Recorded Confirmed Type multivitamin 1 tab PO QAM 07/22/18 11/30/20 History omeprazole 20 mg capsule,delayed 20 mg PO BID 07/22/18 11/30/20 History release venlafaxine 150 mg 150 mg PO QAM 07/22/18 11/30/20 History capsule,extended release 24 hr apixaban 5 mg tablet (Eliquis) 5 mg PO BID 11/02/20 11/30/20 History levothyroxine 25 mcg tablet 25 mcg PO QAM 11/02/20 11/30/20 History venlafaxine 75 mg capsule,extended 75 mg PO HS 11/02/20 11/10/20 History release 24 hr carvedilol 6.25 mg tablet 6.25 mg PO BID 11/30/20 11/30/20 History ondansetron 4 mg disintegrating 4 mg PO TID PRN 11/30/20 11/30/20 History tablet Patient History Medical History Atrial fibrillation dx 1.5 yrs ago; on eliquis; s/p ablation; follows with Dr. Velasquez DDD (degenerative disc disease) Depression Elevated LFTs GERD (gastroesophageal reflux disease) History of CHF (congestive heart failure) History of COVID-19 03/2020; cough, sob, fever, headache, body aches, chills --> [facility] pneumonia, chf; resolved. HLD (hyperlipidemia) Hypothyroidism Sleep apnea CPAP Sludge in gallbladder Surgical History History of cardiac radiofrequency ablation 09/15/20 History of colonoscopy History of esophagogastroduodenoscopy (EGD) History of lumbar surgery History of open reduction and internal fixation (ORIF) procedure RUE History of wisdom tooth extraction Family History Other No family history of adverse response to anesthesia No pertinent family history Social History Smoking Status: Never smoker Cigarettes Per Day: few now and then; Second Hand Exposure: No; Do You Dip or Chew Tobacco: No; Hx Alcohol Use: No Hx Substance Use: No Preferred Language: Cuban Communication Ability: Effective Web Project Manager Required: No Beliefs That Will Affect Care: None Current Living Situation: Spouse Other Information That Helps Us Care for You: No Feels Safe at Home: Yes Safety Concerns: Feels Safe At This Time Assistive Devices: None Review of Systems Constitutional: + fever, + malaise, + anorexia, + weight loss and + insomnia Gastrointestinal: + abdominal pain, + nausea and + constipation Physical Exam Constitutional: WD/WN, vitals as above Respiratory: normal respiratory effort, lungs clear to auscultation Cardiovascular: RRR, no murmur, no edema Gastrointestinal (Abdomen): Inspection/Auscultation: + abdomen distended Percussion/Palpation: abdomen soft; abdomen nontender Skin: no rashes, warm and dry Results & Data ([facility]) Vital Signs (Past 12 Hours) Vital Signs Temp Pulse Resp BP Pulse Ox 12/01/20 07:29 37.4 C 79 18 157/90 H 92 PG Care Time/CCT Total # of Minutes Spent Total Time Spent with Patient: Total time spent is greater than 50% in coordination of care (as documented) at patient's floor/unit and/or counseling patient: Coding Level of Care Code 47280 Office/OBS Consult Lvl 3 Diagnoses Abnormal liver function tests R94.5
[2020-12-01] MEDS ORDERED: ONDANSETRON INJ 2 MG/ML 2 ML VIAL IV PRN (14:58)
[2020-12-01] MEDS ORDERED: ONDANSETRON INJ 2 MG/ML 2 ML VIAL IV SCH ×2 (15:00)
[2020-12-01] MEDS: METOCLOPRAMIDE HCL INJ 5 MG/ML 2 ML VIAL IV PRN (15:07)
[2020-12-01 15:47] VITALS: TEMP 100.2
--- NOTE | 2020-12-01 16:41 | Discharge Summary ---
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 Outpatient imaging shows hepatosplenomegaly with lymph nodes in the abdomen measuring up to 3 cm. Patient reportedly has outpatient work-up including negative hepatitis serology. Negative CMV. Louis-Cohn IgG but negative IgM. Negative Lyme and anaplasmosis. He had an outpatient HIDA scan on November 03 showing an EF of 95% of his gallbladder otherwise normal hepatobiliary scan. Patient did have Covid pneumonia and was admitted and discharged in March 2020 at that time he had mild elevations of transaminases. However the patient's had persistent nausea and some right upper quadrant discomfort since September 2020. Along the way he has had his amiodarone discontinued for which he takes for atrial fibrillation, his atorvastatin discontinued. He also has had decreasing blood pressure and and decreasing carvedilol dosing. He states his amiodarone was discontinued midway through October In the ER he is in mild distress examines with pain in his right upper quadrant worse hepatomegaly is otherwise has no other changes in physical findings that I can see Principal Diagnosis Hepatosplenomegaly, abdominal lymphadenopathy Discharge Exam GENERAL: A&Ox3. NAD. NECK: No JVD. No lymphadenopathy. CHEST/LUNGS: CTAB A/P. No crackles, wheezes, rales, rhonchi. HEART: RRR. No m/g/r. ABDOMEN: Mildly TTP diffusely, more so at RUQ. Somewhat distended. BS+. EXTREMITIES: No cyanosis, no clubbing, no edema SKIN: Warm and dry. No rashes or lesions. PSYCHIATRIC: Euthymic affect, no SI, no pressured speech, no hallucinations NEUROLOGIC: No FND. CN II-XII grossly intact. Discharge Data Allergies Allergy/AdvReac Type Severity Reaction Status Date / Time apple Allergy Severe THROAT Verified 11/30/20 11:42 SWELLS banana Allergy Severe THROAT Verified 11/30/20 11:42 SWELLS IF TOO RIPE- A LITTLE GREEN OKAY TO EAT. cantaloupe Allergy Severe THROAT Verified 11/30/20 11:42 SWELLS cucumber Allergy Severe THROAT Verified 11/30/20 11:42 SWELLS pineapple Allergy Severe THROAT Verified 11/30/20 11:42 SWELLS watermelon Allergy Severe THROAT Verified 11/30/20 11:42 SWELLS tree nut Allergy Intermediate Swelling Verified 11/30/20 11:42 of Lip/Tongue/Throat Consultations 12/01/20 09:17 Consult General Surgery Routine 12/01/20 14:12 Consult Gastroenterology Routine Ordered Studies 11/30/20 12:02 CT abd pelvis oral and IV con Routine CT chest diagnostic wo con Routine Hospital Course (1) Nausea: Patient is a 55-year-old gentleman who came to [facility] referred from hematology/oncology office due to nausea, vomiting, significant weight loss in the setting of persistent hepatosplenomegaly with perihepatic lymphadenopathy on imaging. He was admitted for further evaluation and repeat CT abdomen and pelvis found moderate hepatosplenomegaly which had increased since CT of 11/10/2020 and no change in abdominal lymphadenopathy. While admitted he was evaluated by hematology/oncology, who recommended further evaluation of his liver and lymphadenopathy with biopsy. As such, general surgery was consulted, who felt that the lymph nodes would not be accessible via laparoscopy and thus recommended possible GI consult. The on-call GI provider for [facility] was contacted - Dr. Dowell agreed that patient needed EUS guided lymph node biopsy. As such, [facility] gastroenterology was consulted, who recommended EUS biopsy as an outpatient. The patient will be set up for the previously mentioned procedure next week. In light of this, patient was instructed to hold his Eliquis until after the procedure to avoid risk of excessive bleeding. Patient was discharged home with scheduled Zofran for the next 7 days due to ongoing nausea. He will be contacted by [facility] gastroenterology to be scheduled for procedure. He will follow-up with hematology/oncology as well. (2) Abdominal pain: (3) Abnormal liver function tests: Total Time Total Time Spent Total Time Spent (In Minutes): See attending attestation Discharge Plan Discharge Items Patient Disposition: Home - Self-Care Reason For Visit: FEVER,WEIGHT LOSS,TRANSAMINITIS Discharge Diagnosis: Hepatosplenomegaly, perihepatic lymphadenopathy Activity: Per Instructions section Non-emergency contact: Primary Care Provider, Bodily Injury Adjuster and Oncologist Call non-emergency contact if: you have any medication questions and your symptoms worsen Follow-up/Referrals: Torrey Patino V., [Physician] - (Dr. Garcia office was closed at the time of your discharge. A superintendent ammunition storage will reach out to you to informing you of your upcoming appt time and date with Dr. Patino.) Clemente Gary DO [Physician] - (Per notes, Dr. Gramajo office will contact patient for upcoming scheduling.) Mariela Schulz MD [Primary Care Provider] - (Dr. Buenrostro office was closed at the time of your discharge. A superintendent ammunition storage will reach out to you informing you of your upcoming appt time and date with Dr. Schulz.) Diet: Heart Healthy Addtl Attending Provider Instructions: You were admitted to [facility] due to concerns over liver and spleen enlargements, as well as being symptomatic from a GI standpoint with nausea, decreased appetite, and weight loss. You were seen by Hematology/Oncology who recommended that you be evaluated for possible liver biopsy, as well as perihepatic lymph node biopsy. As such, a general surgery consult was placed and you were evaluated by their team. However, they recommended that you instead be evaluated by gastroenterology as the perihepatic lymph nodes would be too deep to biopsy via laparoscopy. Subsequently, you were evaluated by [facility] gastroenterology, who recommended that your biopsies be done as an outpatient. Per Dr. Gary's recommendations, you will be discharged and their office will reach out to you to schedule the previously mentioned intervention as an outpatient next week. Please stop taking your Eliquis for now, as this will make it more likely that you will bleed excessively during the intervention. Please ask the third shift lieutenant about when to restart this medication after your procedure. To help with your nausea, we will prescribe Zofran 4 mg orally every 8 hours for the next week. If you have not heard from [facility] gastroenterology within the next few days, please reach out to them at the number provided in this discharge packet. Please follow-up with Hematology/Oncology as well. Pending Studies at Discharge: No Stand-Alone Forms: My [employer], Smoking Cessation Medications and DC Order Prescriptions: New ondansetron HCl [Zofran] 4 mg tablet 4 mg PO Q8H 7 Days Qty: 21 RF: 0 Continued multivitamin Tablet 1 tab PO QAM RF: 0 venlafaxine 150 mg capsule,extended release 24hr 150 mg PO QAM RF: 0 omeprazole 20 mg capsule,delayed release(DR/EC) 20 mg PO BID RF: 0 levothyroxine 25 mcg Tablet 25 mcg PO QAM RF: 0 carvedilol 6.25 mg tablet 6.25 mg PO BID RF: 0 Discontinued venlafaxine 75 mg Capsule,Extended Release 24hr 75 mg PO HS RF: 0 Eliquis 5 mg Tablet 5 mg PO BID RF: 0 ondansetron 4 mg tablet,disintegrating 4 mg PO TID PRN (Reason: Nausea) RF: 0 Discharge Orders: Discharge Order (Routine); Ordered 12/01/20 Ordered By: Nirmal Hitchcock Admission Data Admit Date/Time: 11/30/20 11:27 Attending Provider: Mariela Schulz Admit Provider: [place] Primary Care Provider: Mariela Schulz Other Providers: Emir Euceda ; Clemente Gary Other Interventions: Discharge Summary Assessment (RN) Last Done: 12/01/20 17:02 Supervising Physician Co-Signing Physician Notes Resident Physician Supervision Note: I independently interviewed and examined the patient and verified the stewart history and physical, reviewed labs and image studies and agree with resident Dr. Cox findings and care plan. Resident Activity Tracking Resident Involvement: Resident Care Provided Care Provided: Adult Hospital Medicine
--- NOTE | 2020-12-01 17:00 | Gastrointestinal Consultation ---
Date of Consultation December 01, 2020 Assessment & Plan (1) Abdominal pain: (2) Abnormal liver function tests: (3) Abnormal CT of the abdomen: This a 55-year-old male with prior EtOH use, with worsening symptoms of nausea vomiting, abdominal discomfort, weight loss, with abnormal CT imaging suggestive of hepatosplenomegaly and upper abdominal lymphadenopathy and occluding bebo hepatis lymphadenopathy. GI consulted to consider EUS, biopsy of upper abdominal lymphadenopathy, liver. Overall, would be prudent to evaluate him for underlying lymphoproliferative process given these findings. - Case discussed with his GI office (Dr. Dowell), primary team and my attending, Dr. Gary. Pt would benefit from EUS to evaluate changes seen on CT, and attempt biopsy of lymph nodes, liver - Optimally pt would need to be off Eliquis for at least several days prior to procedure. Therefore will look to schedule him early next week as an outpatient for this; our office will arrange this. - Please continue to hold Eliquis at this time - Diet as tolerated - Antiemetics PRN - Supportive care as above - Would continue to avoid alcohol; would also avoid NSAIDs, ASA Thank you for allowing us to participate in the care of this patient. Please call with any acute changes, questions or concerns. Please see addendum below with additional recommendation from my supervising physician. - Supervising Physician Co-Signing Physician Notes I saw and evaluated the patient. We were consulted for lymphadenopathy. The patient does have a history of congestive heart failure and presented to a medical oncologist after he was found to have worsening lymphadenopathy. He was admitted for an expedited work-up. Patient is on a blood thinning medicine. Endoscopic ultrasound has been requested for potential fine-needle aspiration. Physical examination No obvious distress No abdominal tenderness Impression: Patient with several enlarged lymph nodes within the portal region and perihepatic spaces. There is a question of liver disease as well. Given this we would certainly recommend further evaluation with endoscopic ultrasound as we could likely obtain an aspiration of the lymph nodes and perhaps a liver biopsy if needed. As the patient is on anticoagulation would recommend that it be discontinued for 5 days prior to the endoscopic ultrasound. Given his history of atrial fibrillation he will likely need a Lovenox bridge per his cardiology provider. Recommendations Outpatient endoscopic ultrasound to be scheduled Please call with any questions or concerns History of Present Illness Reason for Consultation: EUS/? lymph node/liver bx Requesting Physician: Wai Ceballos PA-C Attending Physician: Mariela Schulz MD History of Present Illness This is a 55-year-old male with history of atrial fibrillation, status post ablation, on Eliquis, who has developed several months of abdominal discomfort, bloating, nausea, poor appetite, weight loss of greater than 40 pounds. He has had elevation of his alk phos, AST, as well as his calcium level. He has been seen by [facility]. Outpatient work-up has included EGD which was done on 11/10/20 which was generally unremarkable, along with ultrasound of the abdomen, HIDA which showed gallbladder sludge. CT imaging has indicated hepatosplenomegaly, upper abdominal lymphadenopathy. Lately his symptoms have seemed to become worse, and he was evaluated by hematology/oncology he was admitted due to worsening abdominal discomfort, nausea vomiting. Surgery was consulted for possible biopsy, however was felt to be in a difficult area for laparoscopic access. GI consulted for possible EUS. Eliquis is currently being held. Presently states he has intermittent abdominal discomfort, nausea currently controlled, no vomiting. He is tolerating regular diet. Denies fevers or chills, chest pain or shortness of breath, leg edema. Denies tobacco use. He was drinking alcohol but stopped in August. Denies NSAID use. Allergies Allergy/AdvReac Type Severity Reaction Status Date / Time apple Allergy Severe THROAT Verified 11/30/20 11:42 SWELLS banana Allergy Severe THROAT Verified 11/30/20 11:42 SWELLS IF TOO RIPE- A LITTLE GREEN OKAY TO EAT. cantaloupe Allergy Severe THROAT Verified 11/30/20 11:42 SWELLS cucumber Allergy Severe THROAT Verified 11/30/20 11:42 SWELLS pineapple Allergy Severe THROAT Verified 11/30/20 11:42 SWELLS watermelon Allergy Severe THROAT Verified 11/30/20 11:42 SWELLS tree nut Allergy Intermediate Swelling Verified 11/30/20 11:42 of Lip/Tongue/Throat Home Medications Medication Instructions Recorded Confirmed Type multivitamin 1 tab PO QAM 07/22/18 11/30/20 History omeprazole 20 mg capsule,delayed 20 mg PO BID 07/22/18 11/30/20 History release venlafaxine 150 mg 150 mg PO QAM 07/22/18 11/30/20 History capsule,extended release 24 hr levothyroxine 25 mcg tablet 25 mcg PO QAM 11/02/20 11/30/20 History carvedilol 6.25 mg tablet 6.25 mg PO BID 11/30/20 11/30/20 History ondansetron HCl 4 mg tablet 4 mg PO Q8H 7 Days #21 tab 12/01/20 Rx (Zofran) Patient History Medical History Atrial fibrillation dx 1.5 yrs ago; on eliquis; s/p ablation; follows with Dr. Velasquez DDD (degenerative disc disease) Depression Elevated LFTs GERD (gastroesophageal reflux disease) History of CHF (congestive heart failure) History of COVID-19 03/2020; cough, sob, fever, headache, body aches, chills --> hospitalized at [facility] pneumonia, chf; resolved. HLD (hyperlipidemia) Hypothyroidism Sleep apnea CPAP Sludge in gallbladder Surgical History History of cardiac radiofrequency ablation 09/15/20 History of colonoscopy History of esophagogastroduodenoscopy (EGD) History of lumbar surgery History of open reduction and internal fixation (ORIF) procedure RUE History of wisdom tooth extraction Family History Other No family history of adverse response to anesthesia No pertinent family history Social History Smoking Status: Never smoker Cigarettes Per Day: few now and then; Second Hand Exposure: No; Hx Alcohol Use: No Hx Substance Use: No Preferred Language: [place] Communication Ability: Effective Umbrella Tipper Hand Required: No Beliefs That Will Affect Care: None Current Living Situation: Spouse Feels Safe at Home: Yes Assistive Devices: None Review of Systems Review of Systems: A complete review of systems was performed and negative except as noted in HPI Physical Exam Constitutional: WD/WN, vitals as above Eyes: Sclera anicteric Respiratory: normal respiratory effort, lungs clear to auscultation Cardiovascular: RRR, no murmur, no edema Gastrointestinal (Abdomen): Some mild epigastric discomfort with palpation, bowel sounds normal x4 quadrants, abdomen is soft, nondistended Skin: no rashes, warm and dry Psychiatric: A+Ox3, euthymic affect Results & Data ([facility]) Vital Signs (Past 12 Hours) Vital Signs Temp Pulse Resp BP BP Pulse Ox 12/01/20 15:46 37.9 C H 97 H 16 126/77 92 12/01/20 07:29 37.4 C 79 18 157/90 H 92 Laboratory Results 12/01/20 12/01/20 12/01/20 Range/Units 14:12 14:12 07:16 Sodium (136-145) mmol/L Potassium (3.5-5.1) mmol/L Chloride (98-107) mmol/L Carbon Dioxide (21-32) mmol/L Anion Gap (3-11) BUN (7-18) mg/dl Creatinine (0.6-1.4) mg/dl Est Cr Clr Drug Dosing ml/min Est GFR ( Amer) ml/min Est GFR (Non-Af Amer) ml/min BUN/Creatinine Ratio (10-20) Glucose (70-99) mg/dl Calcium (8.5-10.1) mg/dl Total Bilirubin (0.2-1) mg/dl AST (15-37) U/L ALT (12-78) U/L Alkaline Phosphatase (45-117) U/L Total Protein (6.4-8.2) gm/dl Albumin (3.4-5.0) gm/dl Globulin (2.5-4.0) gm/dl Albumin/Globulin Ratio (0.9-2) Lipase (73-393) U/L 25-OH Vitamin D Total 43.5 (30-100) ng/ml Procalcitonin 0.53 H (0-0.5) ng/ml TSH (0.300-4.500) uIu/ml Free T4 (0.8-1.6) ng/dl PTH Intact (18.4-80.1) pg/ml PTH Related Protein Pending 12/01/20 12/01/20 Range/Units 07:16 07:16 Sodium 138 (136-145) mmol/L Potassium 3.8 (3.5-5.1) mmol/L Chloride 103 (98-107) mmol/L Carbon Dioxide 30 (21-32) mmol/L Anion Gap 5.0 (3-11) BUN 12 (7-18) mg/dl Creatinine 1.01 (0.6-1.4) mg/dl Est Cr Clr Drug Dosing 93.8 ml/min Est GFR ( Amer) 95.3 ml/min Est GFR (Non-Af Amer) 82.2 ml/min BUN/Creatinine Ratio 11.7 (10-20) Glucose 92 (70-99) mg/dl Calcium 10.9 H (8.5-10.1) mg/dl Total Bilirubin 1.0 (0.2-1) mg/dl AST 124 H (15-37) U/L ALT 65 (12-78) U/L Alkaline Phosphatase 396 H (45-117) U/L Total Protein 6.5 (6.4-8.2) gm/dl Albumin 2.3 L (3.4-5.0) gm/dl Globulin 4.2 H (2.5-4.0) gm/dl Albumin/Globulin Ratio 0.5 L (0.9-2) Lipase 166 (73-393) U/L 25-OH Vitamin D Total (30-100) ng/ml Procalcitonin (0-0.5) ng/ml TSH 7.310 H (0.300-4.500) uIu/ml Free T4 1.58 (0.8-1.6) ng/dl PTH Intact < 6.3 L (18.4-80.1) pg/ml PTH Related Protein Diagnostic Findings CTAP: FINDINGS: Please note that the chest CT will be reported separately. No pneumatosis, free air or portal venous gas is present. Several enlarged upper abdominal lymph nodes are similar to CT of November 10, 2020 but increased in size since CT of September 17, 2015. Bebo hepatis lymph nodes measure up to 1.7 cm in short axis diameter. Moderate hepatosplenomegaly has increased since CT of November 10, 2020. No hepatic or splenic lesions are present. The adrenal glands, kidneys and pancreas are unremarkable. Is no evidence for a bowel obstruction. The appendix is normal. Caliber and wall thickness of small large bowel are normal. Postoperative findings with the spine are present. There is no ascites. There is no pelvic lymphadenopathy. Major vasculature is patent. Subtle infiltration adjacent to the gallbladder is unchanged. A few small left renal calculi measure up to 3 mm. There are no ureteral calculi and there is no hydronephrosis. IMPRESSION: 1. Moderate hepatosplenomegaly which has increased since CT of November 10, 2020. No change in upper abdominal lymphadenopathy. The findings remain nonspecific. 2. No bowel obstruction. No bowel wall thickening. Normal appendix. CT chest: CLINICAL HISTORY: 55 years-old Male with weight loss, fever, Lymphagenopathy. Acute weight loss with fever and lymphadenopathy TECHNIQUE: Multiaxial CT images of the chest were performed without contrast. A dose lowering technique was utilized adhering to the principles of ALARA. COMPARISON: CT abdomen and pelvis of same day, CTA chest 03/16/2020 FINDINGS: Unremarkable thyroid. No adenopathy identified within the chest. Calcified left hilar lymph nodes with calcified granuloma of the left lower lobe. The heart is mildly enlarged. No pericardial effusion. Mild to moderate coronary artery calcifications. Mild atherosclerosis of the thoracic aorta without aneurysm. No pneumothorax, pleural effusion, airspace consolidation or overt pulmonary edema. Mild bibasilar atelectasis/scarring. Hepatosplenomegaly with suggested hepatic steatosis. Gallbladder sludge. Gynecomastia. Unremarkable soft tissues. No acute fracture. IMPRESSION: 1. No acute intrathoracic abnormality. 2. No adenopathy. 3. Prior granulomatous disease. 4. Hepatosplenomegaly.
[2020-12-01 17:04] VITALS: BP 157/90; PULSE 85
== END 2020-12-01 17:55 | disposition home or self-care (01) | DRG 443 ==
LOC: ED 10:55 → 2N 11:27 → SUATTDRO 11:27 → 2N 14:43 → 3N 12-01 15:42

== ENCOUNTER 2022-01-22 16:20 | Inpatient (IN) ==
[2022-01-22] MEDS ORDERED: dilTIAZem HCl 5 MG/ML 5 ML VIAL IV STA (17:02)
[2022-01-22] MEDS ORDERED: STAT IV Infusion **Titration per Protocol STA (17:02)
[2022-01-22 17:10] LABS: Basophils # (auto) 0.07 K/uL (0-0.2); Basophils % (auto) 0.7 %; Eosinophils # (auto) 0.42 K/uL (0-0.50); Eosinophils % (auto) 4.4 %; Hematocrit (blood only) 47.6 % (40.1-51.0); Hemoglobin 15.8 g/dl (14.0-18.0); Immature Granulocytes # (auto) 0.07 K/uL (0.00-0.02); Immature Granulocytes % (auto) 0.7 %; Lymphocytes # (auto) 2.09 K/uL (1.2-3.4); Mean Corpuscular Hemoglobin 28.1 pg (25.0-34.0); Mean Corpuscular Hgb Conc 33.2 g/dL (32.0-36.0); Mean Corpuscular Volume 84.5 fL (80.0-100.0); Mean Platelet Volume 10.7 fL (9.4-12.4); Monocytes # (auto) 0.81 K/uL (0.24-0.82); Monocytes % (auto) 8.5 %; Neutrophils # (auto) 6.02 K/uL (1.4-6.5); Neutrophils % (auto) 63.7 %; Platelet Count 205 K/uL (130-400); RDW Coefficient of Variation 14.7 % (11.5-14.5); RDW Standard Deviation 45.1 fL (36.4-46.3); Red Blood Count 5.63 M/uL (4.63-6.08); White Blood Count 9.48 K/ul (4.8-10.8)
[2022-01-22 17:21] LABS: Alanine Aminotransferase 36 U/L (7-52); Albumin Globulin Ratio 1.4 (0.9-2); Albumin Level 4.2 gm/dl (3.4-5.0); Alkaline Phosphatase 128 U/L (34-104); Anion Gap 6 (3-11); Aspartate Aminotransferase 28 U/L (13-39); BUN Creatinine Ratio 21.1 (10-20); Bilirubin,Total 0.6 mg/dl (0.2-1.0); Blood Urea Nitrogen 20 mg/dl (6-23); Calcium 9.3 mg/dl (8.5-10.1); Carbon Dioxide 27 mmol/L (21-32); Chloride 101 mmol/L (98-107); Est GFR (African American) 101.9 ml/min; Est GFR (Non-African American) 87.9 ml/min; Globulin 2.9 gm/dl (2.5-4.0); Glucose 90 mg/dl (70-99(Fasting)); Magnesium 2.1 mg/dl (1.7-2.4); Potassium 4.2 mmol/L (3.5-5.1); Sodium 134 mmol/L (136-145); Total Protein 7.1 gm/dl (6.0-8.3)
[2022-01-22 17:25] LABS: Partial Thromboplastin Ratio 0.9; Partial Thromboplastin Time 24.2 Seconds (21.0-31.0); Prothrombin Time 10.3 Seconds (9.0-12.0)
--- NOTE | 2022-01-22 17:26 | Emergency Department Note ---
Impression & Plan Atrial flutter with rapid ventricular response, Light-headed ED Provider Note Provider: Lyndon Mcnally MD DATE OF SERVICE: 01/22/2022 CHIEF COMPLAINT: Atrial fibrillation HISTORY OF PRESENT ILLNESS: Patient is a 56-year-old gentleman past medical history including paroxysmal atrial fibrillation status post ablation not on anticoagulation, hypertension, and amiodarone toxicity presenting here today reporting about 4 AM yesterday morning noted palpitations concerning for atrial fibrillation. Is on flecainide daily. Took additional flecainide as previously directed by his doctor yesterday and then today but still having consistent symptoms of palpitations. States what brought him here today however was not only this but that he began develop some lightheadedness with this today. Has not passed out. Denies significant shortness of breath unless he gets up and moves around. Denies leg swelling. No chest pain reported. He recently finished a course of prednisone steroid that may be contributing for ear infections but that is improving. Patient again relays a history previously of amiodarone toxicity. Has taken 300 mg of flecainide today. Not on anticoagulation at this time as he is inconsistent atrial fibrillation. REVIEW OF SYSTEMS: A total of 10 review of systems was obtained and negative except as stated above in the HPI. PAST MEDICAL HISTORY: As noted above MEDICATIONS: Reviewed home medications SOCIAL HISTORY: Occasional alcohol PHYSICAL EXAM: GENERAL: alert and oriented in no acute distress on stretcher Head: normocephalic and atraumatic EYES: No injection, discharge or icterus. NECK: Trachea midline. ENT: Mucous membranes pink and moist. Right TM is clear. Left TM with some faint erythema on the posterior portion but no bulging or effusion noted. LUNGS: Airway patent. No retractions. Breath sounds clear with good air entry bilaterally. HEART: Tachycardic rate with a fairly regular rhythm. ABDOMEN: Soft and non-tender, without guarding or rebound. SKIN: Acyanotic, warm, dry, without rashes EXTREMITIES: Without swelling, tenderness or deformity NEUROLOGICAL: No focal deficits. No aphasia. No facial droop or slurred speech. Ambulatory. EK bpm atrial flutter with rapid ventricular response. No acute ST segment elevation noted with a QTC of 477. CONTINUOUS CARDIAC MONITORING: was ordered and showed a heart rate of 120s bpm in atrial flutter with transient episode of irregular probable atrial flutter in the 80s. Patient's laboratory studies and imaging reviewed. Differential includes Premature contractions, electrolyte abnormality, cardiac dysrhythmia, thyroid dysfunction, pulmonary embolism, infection, gastrointes tinal, as well as other pathologies. IMPRESSION/MEDICAL DECISION MAKING: EKG in particular with cardiac monitoring here for seems to be fairly regular but almost normal variant heart rate around 125. Believe this represents atrial flutter. Labs completed. No significant anemia or leukocytosis. Recent completion of prednisone may predispose him to develop arrhythmia. No significant hypokalemia or hypomagnesemia noted. No overt signs of heart failure at this time but symptomatic with some near faintness. Given some diltiazem as a bolus IV and started diltiazem drip. Has already taken multiple doses flecainide at this time. Not anticoagulated at this time. Discussion with him it does not sound like there are contraindications to anticoagulation. Troponin not elevated. We will start heparinization at this point and bring into the hospital given his symptomatic atrial flutter at this point. DIAGNOSIS: Atrial flutter, lightheadedness DISPOSITION: Hospitalist will evaluate Patient was agreeable with this plan. Critical Care I have personally spent 32 minutes of critical care time in the direct management of this patient. This includes bedside care, interpretation of diagnostic studies, and testing, discussion with consultants, patient, and family members, and other required patient management activities. These 32 minutes is in excess of all separately billable procedures. Past Med/Surg History Medical History (Updated 01/22/22 @ 23:54 by Lyndon Mcnally M.D.) Atrial fibrillation dx 1.5 yrs ago; on eliquis; s/p ablation; follows with Dr. Velasquez DDD (degenerative disc disease) Depression Elevated LFTs GERD (gastroesophageal reflux disease) History of CHF (congestive heart failure) History of COVID-19 03/2020; cough, sob, fever, headache, body aches, chills --> hospitalized at [facility] pneumonia, chf; resolved. HLD (hyperlipidemia) Hypothyroidism Sleep apnea CPAP Sludge in gallbladder Surgical History History of cardiac radiofrequency ablation 09/15/20 History of colonoscopy History of esophagogastroduodenoscopy (EGD) History of lumbar surgery History of open reduction and internal fixation (ORIF) procedure RUE History of wisdom tooth extraction Family History Other No family history of adverse response to anesthesia No pertinent family history Social History Smoking Status: Never smoker Cigarettes Per Day: few now and then; Second Hand Exposure: No; Hx Alcohol Use: No Hx Substance Use: No Preferred Language: Samoan Communication Ability: Effective 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 cantaloupe Allergy Severe THROAT Verified 01/22/22 19:17 SWELLS cucumber Allergy Severe THROAT Verified 01/22/22 19:17 SWELLS pineapple Allergy Severe THROAT Verified 01/22/22 19:16 SWELLS watermelon Allergy Severe THROAT Verified 01/22/22 19:17 SWELLS tree nut Allergy Intermediate Swelling Verified 01/22/22 19:18 of Lip/Tongue/Throat Home Meds Home Medications Medication Instructions Recorded Confirmed multivitamin 1 tab PO QAM 07/22/18 01/22/22 omeprazole 20 mg capsule,delayed 20 mg PO BID 07/22/18 01/22/22 release venlafaxine 150 mg 150 mg PO QAM 07/22/18 01/22/22 capsule,extended release 24 hr levothyroxine 25 mcg tablet 25 mcg PO .4XW@NIGHT 11/02/20 01/22/22 carvedilol 6.25 mg tablet 6.25 mg PO BID 11/30/20 01/22/22 flecainide 50 mg tablet 50 mg PO BID 01/22/22 01/22/22 levothyroxine 50 mcg tablet 50 mcg PO .3XW@NIGHT 01/22/22 01/22/22 Results & Data (ED) Vital Signs Vital Signs - 24 hr 01/22/22 16:27 01/22/22 17:13 01/22/22 17:20 Temperature 36.8 C Temperature Source Temporal Artery Scan Pulse Rate 103 H 125 H 125 H Pulse Rate from SpO2 Sensor 125 H 126 H Respiratory Rate 18 15 17 Blood Pressure 173/96 H Blood Pressure Mean 121 Pulse Oximetry 97 96 96 Oxygen Delivery Method Room Air Sepsis Recent Fever Within 48 Hours No Sepsis New/Unexplained Change in Mental Status No Sepsis Action Taken by Nursing No Action Required 01/22/22 17:30 01/22/22 17:30 01/22/22 17:40 Temperature Temperature Source Pulse Rate 127 H 126 H Pulse Rate from SpO2 Sensor 118 H 122 H Respiratory Rate 15 17 Blood Pressure 137/109 H Blood Pressure Mean 118 Pulse Oximetry 94 95 Oxygen Delivery Method Sepsis Recent Fever Within 48 Hours Sepsis New/Unexplained Change in Mental Status Sepsis Action Taken by Nursing Laboratory Data Result diagrams: 01/22/22 16:40 01/22/22 16:40 Lab Results 01/22/22 01/22/22 01/22/22 Range/Units 16:40 16:40 16:40 WBC 9.48 (4.8-10.8) K/ul RBC 5.63 (4.63-6.08) M/uL Hgb 15.8 (14.0-18.0) g/dl Hct 47.6 (40.1-51.0) % MCV 84.5 (80.0-100.0) fL MCH 28.1 (25.0-34.0) pg MCHC 33.2 (32.0-36.0) g/dL RDW Std Deviation 45.1 (36.4-46.3) fL RDW Coeff of Ulices 14.7 H (11.5-14.5) % Plt Count 205 (130-400) K/uL MPV 10.7 (9.4-12.4) fL Immature Gran % (Auto) 0.7 % Neut % (Auto) 63.7 % Lymph % (Auto) 22.0 % Sandoval % (Auto) 8.5 % Eos % (Auto) 4.4 % Baso % (Auto) 0.7 % Neut # (Auto) 6.02 (1.4-6.5) K/uL Lymph # (Auto) 2.09 (1.2-3.4) K/uL Sandoval # (Auto) 0.81 (0.24-0.82) K/uL Eos # (Auto) 0.42 (0-0.50) K/uL Baso # (Auto) 0.07 (0-0.2) K/uL Immature Gran # (Auto) 0.07 H (0.00-0.02) K/uL PT 10.3 (9.0-12.0) Seconds INR 1.0 (0.9-1.1) APTT 24.2 (21.0-31.0) Seconds PTT Ratio 0.9 Sodium 134 L (136-145) mmol/L Potassium 4.2 (3.5-5.1) mmol/L Chloride 101 (98-107) mmol/L Carbon Dioxide 27 (21-32) mmol/L Anion Gap 6 (3-11) BUN 20 (6-23) mg/dl Creatinine 0.95 (0.6-1.4) mg/dl Est Cr Clr Drug Dosing Not Reportable Est GFR ( Amer) 101.9 ml/min Est GFR (Non-Af Amer) 87.9 ml/min BUN/Creatinine Ratio 21.1 H (10-20) Glucose 90 (70-99(Fasting)) mg/dl Calcium 9.3 (8.5-10.1) mg/dl Magnesium 2.1 (1.7-2.4) mg/dl Total Bilirubin 0.6 (0.2-1.0) mg/dl AST 28 (13-39) U/L ALT 36 (7-52) U/L Alkaline Phosphatase 128 H (34-104) U/L Troponin I High Sens 10.7 (0-20) pg/ml Total Protein 7.1 (6.0-8.3) gm/dl Albumin 4.2 (3.4-5.0) gm/dl Globulin 2.9 (2.5-4.0) gm/dl Albumin/Globulin Ratio 1.4 (0.9-2) TSH (0.300-4.500) uIu/ml Free T4 (0.61-1.60) ng/dl 01/22/22 Range/Units 16:40 WBC (4.8-10.8) K/ul RBC (4.63-6.08) M/uL Hgb (14.0-18.0) g/dl Hct (40.1-51.0) % MCV (80.0-100.0) fL MCH (25.0-34.0) pg MCHC (32.0-36.0) g/dL RDW Std Deviation (36.4-46.3) fL RDW Coeff of Ulices (11.5-14.5) % Plt Count (130-400) K/uL MPV (9.4-12.4) fL Immature Gran % (Auto) % Neut % (Auto) % Lymph % (Auto) % Sandoval % (Auto) % Eos % (Auto) % Baso % (Auto) % Neut # (Auto) (1.4-6.5) K/uL Lymph # (Auto) (1.2-3.4) K/uL Sandoval # (Auto) (0.24-0.82) K/uL Eos # (Auto) (0-0.50) K/uL Baso # (Auto) (0-0.2) K/uL Immature Gran # (Auto) (0.00-0.02) K/uL PT (9.0-12.0) Seconds INR (0.9-1.1) APTT (21.0-31.0) Seconds PTT Ratio Sodium (136-145) mmol/L Potassium (3.5-5.1) mmol/L Chloride (98-107) mmol/L Carbon Dioxide (21-32) mmol/L Anion Gap (3-11) BUN (6-23) mg/dl Creatinine (0.6-1.4) mg/dl Est Cr Clr Drug Dosing Est GFR ( Amer) ml/min Est GFR (Non-Af Amer) ml/min BUN/Creatinine Ratio (10-20) Glucose (70-99(Fasting)) mg/dl Calcium (8.5-10.1) mg/dl Magnesium (1.7-2.4) mg/dl Total Bilirubin (0.2-1.0) mg/dl AST (13-39) U/L ALT (7-52) U/L Alkaline Phosphatase (34-104) U/L Troponin I High Sens (0-20) pg/ml Total Protein (6.0-8.3) gm/dl Albumin (3.4-5.0) gm/dl Globulin (2.5-4.0) gm/dl Albumin/Globulin Ratio (0.9-2) TSH 6.214 H (0.300-4.500) uIu/ml Free T4 0.80 (0.61-1.60) ng/dl Administered Medications Carvedilol (Carvedilol 12.5 Mg Tab) 12.5 mg PO BID [facility] Stop: 02/21/22 20:59 Last Admin: 01/22/22 23:23 Dose: 12.5 mg Documented By: GILDA Diltiazem HCl 125 mg/ Dextrose 125 mls @ 5 mls/hr IV .Q24H [facility]; Protocol Stop: 02/21/22 17:14 Last Titration: 01/22/22 23:22 Dose: 7.5 mg/hr, 7.5 mls/hr Documented By: GILDA Co-signed By: GARRETT Titration: 01/22/22 22:03 Dose: 10 mg/hr, 10 mls/hr Documented By: GILDA Co-signed By: LMP Titration: 01/22/22 20:35 Dose: 15 mg/hr, 15 mls/hr Documented By: GILDA Co-signed By: AMB Titration: 01/22/22 19:30 Dose: 13.5 mg/hr, 13.5 mls/hr Documented By: ANGUS Co-signed By: EYAL Titration: 01/22/22 18:31 Dose: 7.5 mg/hr, 7.5 mls/hr Documented By: [id number] Co-signed By: MELY Admin: 01/22/22 17:46 Dose: 5 mg/hr, 5 mls/hr Documented By: [id number] Co-signed By: QASIM Heparin Sodium/Dextrose (Heparin Sodium/Dextrose) 25,000 units in 500 mls @ 33 mls/hr IV .[id number] [facility]; Protocol Stop: 02/21/22 18:44 Last Admin: 01/22/22 19:25 Dose: 1,650 units/hr, 33 mls/hr Documented By: ANGUS Co-signed By: EYAL Levothyroxine Sodium (Levothyroxine Sodium 25 Mcg Tablet) 25 mcg PO SuTuThSa [facility] Stop: 02/21/22 21:59 Last Admin: 01/22/22 23:23 Dose: 25 mcg Documented By: EL Discontinued Medications Diltiazem HCl (Diltiazem Hcl 5 Mg/Ml 5 Ml Vial) 15 mg IV NOW STA Stop: 01/22/22 17:03 Last Admin: 01/22/22 17:46 Dose: 15 mg Documented By: [id number] Co-signed By: QASIM Heparin Sodium (Porcine) (Heparin Sod (Porcine) 1000 Unit/Ml) 1 units IV NOW ONE Stop: 01/22/22 18:43 Last Admin: 01/22/22 19:25 Dose: 7,000 units Documented By: AN Co-signed By: EYAL Heparin Sodium/Dextrose (Heparin Iv Adult Wt-Based Standard With Bolus Protocol) 1 each IV NOW STA; Protocol Stop: 01/22/22 18:28 Last Admin: 01/22/22 19:26 Dose: 1 each Documented By: AN Miscellaneous (Stat Iv Infusion Titration Per Protocol) 1 each N/A NOW STA Stop: 01/22/22 17:03 Last Admin: 01/22/22 19:26 Dose: 1 each Documented By: AN Imaging Data Radiologist's Impression: Chest X-Ray 01/22/22 17:02 XR chest 1V portable CLINICAL HISTORY: Dysrhythmia TECHNIQUE: Single frontal radiograph of the chest was obtained. Comparison: Comparison is made to chest radiograph 12/28/2021 FINDINGS: No lines and tubes are seen. The cardiomediastinal silhouette is normal. The lungs are clear. No evidence of pleural effusion or pneumothorax. IMPRESSION: No acute chest disease. ACT 112: Negative or not required by law. Electronically signed by: Jian Juarez M.D. 01/22/2022 6:22 PM Discharge Plan Visit Data Chief Complaint: Cardiac Assessment Stated Complaint: PT IN A-FIB SINCE YESTERDAY MORNING ED Provider: Lyndon Mcnally Discharge Problem: Atrial flutter with rapid ventricular response, Light-headed Discharge Instructions Interventions: ED Discharge Assessment Last Done: 01/22/22 19:54
[2022-01-22 17:27] LABS: Troponin I High Sensitivity 10.7 pg/ml (0-20)
[2022-01-22 17:35] LABS: Thyroid Stimulating Hormone 6.214 uIu/ml (0.300-4.500)
[2022-01-22] MEDS: dilTIAZem HCL 125 MG in DEXTROSE 5% 100 ML IV SCH (17:46)
[2022-01-22 18:07] LABS: T4 Free Thyroxine 0.8 ng/dl (0.61-1.60)
--- NOTE | 2022-01-22 18:23 | XRay Report ---
XR chest 1V portable CLINICAL HISTORY: Dysrhythmia TECHNIQUE: Single frontal radiograph of the chest was obtained. Comparison: Comparison is made to chest radiograph 12/28/2021 FINDINGS: No lines and tubes are seen. The cardiomediastinal silhouette is normal. The lungs are clear. No evid ence of pleural effusion or pneumothorax. IMPRESSION: No acute chest disease. ACT 112: Negative or not required by law. Electronically signed by: Jian Juarez M.D. 01/22/2022 6:22 PM
[2022-01-22] MEDS ORDERED: Heparin IV Adult Wt-Based Standard WITH Bolus Protocol IV STA (18:27)
--- NOTE | 2022-01-22 18:33 | History & Physical Report ---
Date of Service January 22, 2022 Assessment & Plan (1) PAF (paroxysmal atrial fibrillation): Plan: Patrick is a 56-year-old male with a past medical history of p A. fib s/p ablation without anticoagulant therapy, amiodarone toxicity, hypertension who presents with A. fib RVR which did not improve by increasing his home flecainide A. fib with RVR Echo 03/17/2020: EF 55-60%, LV SF normal, no regional wall motion abnormalities [id number] score of 1 and was s/p ablation, anticoagulation had been deferred on prior evaluation Some concern in the past for diastolic CHF, however patient does not require loop Lasix. 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 Did increase his flecainide to 300 mg yesterday/today without termination of his rhythm Given rhythm present for more than 36 hours will initiate heparin anticoagulation GTT started in ER with rate improvement from high 130s to variable 1001 30s. Slowly downtrending, continue GTT. Carvedilol increased to 12.5 mg p.o. twice daily Additional flecainide deferred given high doses taken yesterday and today If continues to have inadequate rate control can digoxin load Cardiology consulted Initial rhythm looks consistent with A. fib, initially rigid in 130s concerning for flutter but with increased variability since starting gtt. Defer cardioversion if hemodynamically stable while anticoagulating Hepatosplenomegaly Previously followed by GI and heme-onc Was suspected to be reactive rather than lymphoproliferative on CT review by heme-onc Ultimately thought to be due to amiodarone toxicity, transaminases normalized after 6-month prednisone taper Given recent prednisone taper and long taper previously, morning cortisol ordered to check for suppression Mood disorder Continue venlafaxine 150 mg p.o. every morning Hypothyroidism Levothyroxine 50 mg Sunday, 25 mg other days DVT prophylaxis: Anticoagulated Disposition: PCU for A. fib RVR CODE STATUS full code Diet: Heart healthy (2) Obstructive sleep apnea: (3) Hyperlipidemia: (4) HTN (hypertension): (5) Hypothyroidism: History of Present Illness Primary Care Provider: Mariela Schulz MD Patrick is a 56-year-old male with a past medical history of p A. fib s/p ablation without anticoagulant therapy, amiodarone toxicity, hypertension Has had palpitations for 2 days, took a second dose of flecainide per outpatient provider order but continues to have palpitations. Presented to the ER when he started to get lightheaded and a little bit dizzy. Notes that he was previously worked up for amiodarone toxicity with hepatosplenomegaly and transaminitis which improved following 6-month prednisone taper. Finished a different prednisone taper over 9 days due to an ear infection which has improved but with some residual hearing loss after Augmentin/doxycycline. No ear pain at time of presentation. 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 With his failure to improve he presented to the ER. No CP, no CP. +flutter No shortness of breath No fevers, chills, sweats No nausea/vomiting/diarrhea Mild headache behind forehead today, improved at bedside No vision change No numbness/tingling/weakness Intermittent pre-syncope without syncope last day Med review: Flecainide 50mg BID. (300 yesterday, 200 this AM, and then 100 after an hour). Carvedilol 6.25mg BID Synthroid 25mcg MoWeFr--> 50mcgVEnlafaxine 150mg daily Medical History: Reviewed Medications: Reviewed Surgical History: Reviewed Allergies: Reviewed Social History: No tobacco. Social etoh. Last drink 3 days ago. Code Status: Full Code Allergies Allergy/AdvReac Type Severity Reaction Status Date / Time apple Allergy Severe THROAT Verified 11/30/20 11:42 SWELLS banana Allergy Severe THROAT Verified 11/30/20 11:42 SWELLS IF TOO RIPE- A LITTLE GREEN OKAY TO EAT. cantaloupe Allergy Severe THROAT Verified 11/30/20 11:42 SWELLS cucumber Allergy Severe THROAT Verified 11/30/20 11:42 SWELLS pineapple Allergy Severe THROAT Verified 11/30/20 11:42 SWELLS watermelon Allergy Severe THROAT Verified 11/30/20 11:42 SWELLS tree nut Allergy Intermediate Swelling Verified 11/30/20 11:42 of Lip/Tongue/Throat Home Medications Medication Instructions Recorded Confirmed Type multivitamin 1 tab PO QAM 07/22/18 11/30/20 History omeprazole 20 mg capsule,delayed 20 mg PO BID 07/22/18 11/30/20 History release venlafaxine 150 mg 150 mg PO QAM 07/22/18 11/30/20 History capsule,extended release 24 hr levothyroxine 25 mcg tablet 25 mcg PO QAM 11/02/20 11/30/20 History carvedilol 6.25 mg tablet 6.25 mg PO BID 11/30/20 11/30/20 History Past Med/Surg History Medical History (Updated 01/22/22 @ 18:47 by En Bautista MD) Atrial fibrillation dx 1.5 yrs ago; on eliquis; s/p ablation; follows with Dr. Velasquez DDD (degenerative disc disease) Depression Elevated LFTs GERD (gastroesophageal reflux disease) History of CHF (congestive heart failure) History of COVID-19 03/2020; cough, sob, fever, headache, body aches, chills --> hospitalized at [place] pneumonia, chf; resolved. HLD (hyperlipidemia) Hypothyroidism Sleep apnea CPAP Sludge in gallbladder Surgical History History of cardiac radiofrequency ablation 09/15/20 History of colonoscopy History of esophagogastroduodenoscopy (EGD) History of lumbar surgery History of open reduction and internal fixation (ORIF) procedure RUE History of wisdom tooth extraction Family History Other No family history of adverse response to anesthesia No pertinent family history Social History Smoking Status: Never smoker Cigarettes Per Day: few now and then; Second Hand Exposure: No; Hx Alcohol Use: No Hx Substance Use: No Preferred Language: Turkish Communication Ability: Effective 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 NAD. Cooperative. HEENT: Atraumatic, normocephalic. Vision intact. Hearing reduced 2/2 recent ear infection but intact. Pulm: CTAB A&P. -wheezes, -rales, -rhonchi. Symmetrical chest rise. No increased work of breathing. No respiratory distress. Cardiac: irir, -mrg. Radial pulses intact and symmetrical. Abdominal: Nontender, nondistended, soft. BS present. ext: warm/dry and intact. Hip flexion/school guard strength/elbow flexion/extension 5/5 bilat. Results & Data Results & Data ([facility]) Vital Signs (Past 12 Hours) Vital Signs Temp Pulse Resp BP Pulse Ox O2 Del Method 01/22/22 17:40 126 H 17 95 01/22/22 17:30 127 H 15 94 01/22/22 17:30 137/109 H 01/22/22 17:20 125 H 17 96 01/22/22 17:13 125 H 15 96 01/22/22 16:27 36.8 C 103 H 18 173/96 H 97 Room Air PG Care Time/CCT Total # of Minutes Spent Total Time Spent with Patient: Total time spent is greater than 50% in coordination of care (as documented) at patient's floor/unit and/or counseling patient: Coding Level of Care Code 12404 Initial Inpt Care Lvl 3 Diagnoses PAF (paroxysmal atrial fibrillation) I48.0 Obstructive sleep apnea G47.33 Hyperlipidemia E78.2 Hyperlipidemia type: mixed hyperlipidemia HTN (hypertension) I10 Hypertension type: essential hypertension Hypothyroidism E03.9 (1) Hyperlipidemia Hyperlipidemia type: mixed hyperlipidemia Qualified Code(s): E78.2 - Mixed hyperlipidemia (2) HTN (hypertension) Hypertension type: essential hypertension Qualified Code(s): I10 - Essential (primary) hypertension
[2022-01-22] MEDS ORDERED: HEPARIN SOD (PORCINE) 1000 UNIT/ML IV ONE (18:42)
[2022-01-22] MEDS: HEPARIN SODIUM/DEXTROSE 25,000 UNITS/500 ML BAG IV SCH (19:25)
[2022-01-22] MEDS ORDERED: POLYETHYLENE (MIRALAX) 17 GM PACK PO PRN (20:39)
[2022-01-22] MEDS ORDERED: LEVOTHYROXINE SODIUM 25 MCG TABLET PO SCH (22:00)
[2022-01-22] MEDS: carvediloL 12.5 MG TAB PO SCH (23:23)
[2022-01-23 01:29] LABS: Basophils # (auto) 0.06 K/uL (0-0.2); Basophils % (auto) 0.7 %; Eosinophils # (auto) 0.45 K/uL (0-0.50); Eosinophils % (auto) 5.2 %; Hematocrit (blood only) 43.8 % (40.1-51.0); Hemoglobin 14.5 g/dl (14.0-18.0); Immature Granulocytes # (auto) 0.07 K/uL (0.00-0.02); Immature Granulocytes % (auto) 0.8 %; Lymphocytes # (auto) 2.45 K/uL (1.2-3.4); Lymphocytes % (auto) 28.6 %; Mean Corpuscular Hemoglobin 28.2 pg (25.0-34.0); Mean Corpuscular Hgb Conc 33.1 g/dL (32.0-36.0); Mean Corpuscular Volume 85.2 fL (80.0-100.0); Mean Platelet Volume 10.5 fL (9.4-12.4); Monocytes # (auto) 0.72 K/uL (0.24-0.82); Monocytes % (auto) 8.4 %; Neutrophils # (auto) 4.83 K/uL (1.4-6.5); Neutrophils % (auto) 56.3 %; Platelet Count 151 K/uL (130-400); RDW Coefficient of Variation 14.9 % (11.5-14.5); RDW Standard Deviation 46.4 fL (36.4-46.3); Red Blood Count 5.14 M/uL (4.63-6.08); White Blood Count 8.58 K/ul (4.8-10.8)
[2022-01-23 01:55] LABS: BUN Creatinine Ratio 16.5 (10-20); Calcium 9.4 mg/dl (8.5-10.1); Creatinine Clr Calc Pharmacy 106.6 ml/min; Est GFR (African American) 99.3 ml/min; Est GFR (Non-African American) 85.7 ml/min; Partial Thromboplastin Ratio 1.7; Potassium 4.6 mmol/L (3.5-5.1)
[2022-01-23] MEDS: dilTIAZem HCL 125 MG in DEXTROSE 5% 100 ML IV SCH (06:04)
[2022-01-23] MEDS ORDERED: LEVOTHYROXINE SODIUM 50 MCG TABLET PO SCH ×2 (06:30→22:00)
[2022-01-23] MEDS: carvediloL 12.5 MG TAB PO SCH (08:13)
[2022-01-23] MEDS ORDERED: VENLAFAXINE HCL XR 150 MG CAPXR PO SCH (09:00)
[2022-01-23] MEDS: HEPARIN SODIUM/DEXTROSE 25,000 UNITS/500 ML BAG IV SCH (09:28)
[2022-01-23] MEDS ORDERED: APIXABAN 5 MG TABLET PO SCH (09:30)
[2022-01-23] MEDS ORDERED: FLECAINIDE ACETATE 100 MG TABLET PO SCH (09:30)
--- NOTE | 2022-01-23 09:34 | Cardiology Consultation ---
Date of Consultation January 23, 2022 History of Present Illness Reason for Consultation: Luz Maria. gely with RVR Attending Physician: Aryan Kasper MD History of Present Illness Patient notes that Sunday night he fell asleep on the couch. He woke up around 4 AM to go to bed and all of a sudden he started having palpitations. Of note he just finished a 10-day steroid taper for a sinus and ear infection. He notes in the past he has had difficulties with steroids leading to atrial arrhythmias. His palpitations were different than his typical atrial fibrillation which has been quite chaotic and irregular in the past this was more like a dry very regular and fast at about 130 bpm and he also notes that he started feeling lightheaded with it which is why he came to the hospital yesterday he had tried additional doses of flecainide at home without any success of converting him back into sinus rhythm. Had episode of atrial fibrillation in November that went away with an extra 5 mg of flecainide in about an hour at a previous episode from that in April. Outside of that he is done relatively well. Denies any bleeding bruising dark stools or black stools. This morning he feels like himself. He denies any chest pain or chest pressure. He denies any palpitations this morning lightheadedness or dizziness. And overall he feels like he is back to himself. The rest of complete her systems otherwise negative Allergies Allergy/AdvReac Type Severity Reaction Status Date / Time apple Allergy Severe THROAT Verified 01/22/22 19:16 SWELLS banana Allergy Severe THROAT Verified 01/22/22 19:15 SWELLS IF TOO RIPE- A LITTLE GREEN OKAY TO EAT. cantaloupe Allergy Severe THROAT Verified 01/22/22 19:17 SWELLS cucumber Allergy Severe THROAT Verified 01/22/22 19:17 SWELLS pineapple Allergy Severe THROAT Verified 01/22/22 19:16 SWELLS watermelon Allergy Severe THROAT Verified 01/22/22 19:17 SWELLS tree nut Allergy Intermediate Swelling Verified 01/22/22 19:18 of Lip/Tongue/Throat Home Medications Medication Instructions Recorded Confirmed Type multivitamin 1 tab PO QAM 07/22/18 01/22/22 History omeprazole 20 mg capsule,delayed 20 mg PO BID 07/22/18 01/22/22 History release venlafaxine 150 mg 150 mg PO QAM 07/22/18 01/22/22 History capsule,extended release 24 hr levothyroxine 25 mcg tablet 25 mcg PO .4XW@NIGHT 11/02/20 01/22/22 History carvedilol 6.25 mg tablet 6.25 mg PO BID 11/30/20 01/22/22 History flecainide 50 mg tablet 50 mg PO BID 01/22/22 01/22/22 History levothyroxine 50 mcg tablet 50 mcg PO .3XW@NIGHT 01/22/22 01/22/22 History Patient History Medical History Atrial fibrillation dx 1.5 yrs ago; on eliquis; s/p ablation; follows with Dr. Velasquez DDD (degenerative disc disease) Depression Elevated LFTs GERD (gastroesophageal reflux disease) History of CHF (congestive heart failure) History of COVID-19 03/2020; cough, sob, fever, headache, body aches, chills --> hospitalized [facility] pneumonia, chf; resolved. HLD (hyperlipidemia) Hypothyroidism Sleep apnea CPAP Sludge in gallbladder Surgical History History of cardiac radiofrequency ablation 09/15/20 History of colonoscopy History of esophagogastroduodenoscopy (EGD) History of lumbar surgery History of open reduction and internal fixation (ORIF) procedure RUE History of wisdom tooth extraction Family History Other No family history of adverse response to anesthesia No pertinent family history Social History Smoking Status: Never smoker Cigarettes Per Day: few now and then; Second Hand Exposure: No; Hx Alcohol Use: No Hx Substance Use: No Preferred Language: Tajik Communication Ability: Effective 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 Beliefs That Will Affect Care: None Current Living Situation: Spouse Other Information That Helps Us Care for You: No Feels Safe at Home: Yes Safety Concerns: Feels Safe At This Time Assistive Devices: CPAP and Glasses Assistive Devices Comment: uknown home settings, cpap at home Results & Data ([facility]) Vital Signs (Past 12 Hours) Vital Signs Temp Pulse Pulse Resp BP BP Pulse Ox 01/23/22 08:01 36.8 C 80 17 131/82 95 01/23/22 06:03 74 01/23/22 03:55 36.9 C 79 18 114/87 97 01/22/22 22:05 85 01/22/22 23:20 101/65 01/22/22 23:29 96 H 112/77 01/22/22 22:24 37.2 C 78 01/22/22 22:02 88 121/78 O2 Del Method 01/23/22 08:01 Room Air 01/23/22 06:03 01/23/22 03:55 Room Air 01/22/22 22:05 01/22/22 23:20 01/22/22 23:29 01/22/22 22:24 01/22/22 22:02 he is awake alert and oriented x3 is in no acute distress HEENT 2 prescriptions home to carotid bruits Lungs: Clear to auscultation bilaterally no rales rhonchi or wheezing Heart regular rate and rhythm no appreciable murmurs rubs or gallops Abdomen: Soft nontender senna positive bowel sounds Extremities: No clubbing cyanosis or edema Psychiatric: His affect appeared appropriate IMPRESSIONS: 1. Recurrent paroxysmal atrial fibrillation status post A. fib ablation in 2020 2. Elevated [id number] score with a history of hypertension diastolic heart failure 3. 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 History of sarcoidosis with a negative cardiac MRI February 2021 for myocardial sarcoid and preserved LV function 5. Fatty infiltration of his liver 6. Obstructive sleep apnea tolerating CPAP 7. History of both systolic and diastolic hypertension He is converted back to sinus rhythm this morning on his own with diltiazem. The reason his palpitations were different this time compared to his previous episodes of with A. fib is that his EKG is consistent with an atrial flutter that is 2-1. Likely flecainide has organized his A. fib into atrial flutter this time. Given the fact he has had 3 episodes now this year I think he needs to go back on anticoagulation with 5 mg of Eliquis twice daily. This can be started today and his heparin drip can be stopped 2 hours after he starts his first dose of Eliquis. I would increase his flecainide to 100 mg twice daily. He can remain on carvedilol. He notes his home heart rates have been in the 60s and 70s so not worried about excessive bradycardia. If he continues to have recurrent atrial arrhythmias at that point options include a repeat A. fib ablation along with a flutter ablation or consideration of switching him over to Tikosyn. The challenge with Tikosyn is he has had a acute kidney injury in the past on diuretics. We discussed the reasoning behind a repeat procedure given the fact there may be an area that was inadequately burned during his first A. fib ablation. Before we would make any decisions I would have him see the EP service. It is clear that steroids tend to be a trigger for him. Additionally he fell asleep on the couch and probably contributed to triggering his A. fib as he was not sleeping with CPAP given his known significant sleep apnea. We stopped his IV fluids and his diltiazem drip. If he feels well he can go home from my standpoint we will arrange for follow-up in the office.
[2022-01-23 11:27] VITALS: PULSE 82; TEMP 97.9; O2SAT 96
--- NOTE | 2022-01-23 11:52 | Discharge Summary ---
Date of Service January 23, 2022 Admission HPI Per Admitting Provider Patrick is a 56-year-old male with a past medical history of p A. fib s/p ablation without anticoagulant therapy, amiodarone toxicity, hypertension Has had palpitations for 2 days, took a second dose of flecainide per outpatient provider order but continues to have palpitations. Presented to the ER when he started to get lightheaded and a little bit dizzy. Notes that he was previously worked up for amiodarone toxicity with hepatosplenomegaly and transaminitis which improved following 6-month prednisone taper. Finished a different prednisone taper over 9 days due to an ear infection which has improved but with some residual hearing loss after Augmentin/doxycycline. No ear pain at time of presentation. Reports he talk to his shredding specialist Dr. Velasquez and used a pill in pocket approach by increasing his normal 50 mg twice daily of flecainide to a total 300 dose yesterday, then 200 this morning +100 without control of his palpitations and lightheadedness. With his failure to improve [facility] No CP, no CP. +flutter No shortness of breath No fevers, chills, sweats No nausea/vomiting/diarrhea Mild headache behind forehead today, improved at bedside No vision change No numbness/tingling/weakness Intermittent pre-syncope without syncope last day Med review: Flecainide 50mg BID. (300 yesterday, 200 this AM, and then 100 after an hour). Carvedilol 6.25mg BID Synthroid 25mcg MoWeFr--> 50mcgVEnlafaxine 150mg daily Medical History: Reviewed Medications: Reviewed Surgical History: Reviewed Allergies: Reviewed Social History: No tobacco. Social etoh. Last drink 3 days ago. Code Status: Full Code Principal Diagnosis Atrial flutter with rapid ventricular rate Discharge Exam Constitutional WD/WN, vitals as above Respiratory normal respiratory effort, lungs clear to auscultation Cardiovascular RRR, no murmur, no edema Psychiatric A+Ox3, euthymic affect Discharge Data Allergies Allergy/AdvReac Type Severity Reaction Status Date / Time apple Allergy Severe THROAT Verified 01/22/22 19:16 SWELLS banana Allergy Severe THROAT Verified 01/22/22 19:15 SWELLS IF TOO RIPE- A LITTLE GREEN OKAY TO EAT. cantaloupe Allergy Severe THROAT Verified 01/22/22 19:17 SWELLS cucumber Allergy Severe THROAT Verified 01/22/22 19:17 SWELLS pineapple Allergy Severe THROAT Verified 01/22/22 19:16 SWELLS watermelon Allergy Severe THROAT Verified 01/22/22 19:17 SWELLS tree nut Allergy Intermediate Swelling Verified 01/22/22 19:18 of Lip/Tongue/Throat Consultations 01/22/22 18:37 ED Decision to Admit Stat 01/22/22 20:39 Consult Cardiology Routine Hospital Course (1) PAF (paroxysmal atrial fibrillation): Patrick Gonzalez is a 56 year old male admitted overnight at [facility] from January 22 to 2021 due to palpitations and lightheadedness. He was diagnosed with atrial flutter with rapid ventricular rate. This converted to normal sinus rhythm with an increase in his flecainide dosing. Suspect curre nt exacerbation due to not wearing his CPAP at night and recent steroid use. He was reviewed by his shredding specialist (Dr Velasquez) and recommended increasing flecainide to 100 mg twice daily. Given repeated episodes he was also advised to start back on anticoagulation with Eliquis for stroke risk reduction. He will follow up with his shredding specialist - appointment to be arranged by their office. (2) Obstructive sleep apnea: (3) Hyperlipidemia: (4) HTN (hypertension): (5) Hypothyroidism: Total Time Total Time Spent Total Time Spent (In Minutes): 20 Discharge Plan Discharge Items Patient Disposition: Home - Self-Care Reason For Visit: A FIB RVR Discharge Diagnosis: Atrial flutter with rapid ventricular rate Activity: Resume your previous activity Non-emergency contact: [facility] Specialist Call non-emergency contact if: you have any medication questions and your symptoms worsen Follow-up/Referrals: Rigo Velasquez DO [Physician] - (Appointment to be arranged by the office) Mariela Schulz MD [Primary Care Provider] - (No follow up required) Diet: Regular Addtl Attending Provider Instructions: You were admitted overnight at [facility] from January 22 to 2021 due to palpitations and lightheadedness. You were diagnosed with atrial flutter with rapid ventricular rate. This converted to normal sinus rhythm with an increase in flecainide dosing. You were reviewed by your shredding specialist and recommended increasing flecainide to 100 mg twice daily. Given repeated episodes you are also advised to start back on anticoagulation with Eliquis. Please follow up with your shredding specialist - appointment to be arranged by their office. Pending Studies at Discharge: No Stand-Alone Forms: My [facility], Smoking Cessation Medications and DC Order Prescriptions: New flecainide 100 mg tablet 100 mg PO Q12H Qty: 60 0RF Eliquis 5 mg tablet 5 mg PO BID Qty: 60 0RF Continued multivitamin Tablet 1 tab PO QAM venlafaxine 150 mg capsule,extended release 24hr 150 mg PO QAM omeprazole 20 mg capsule,delayed release(DR/EC) 20 mg PO BID levothyroxine 25 mcg Tablet 25 mcg PO .4XW@NIGHT Rx Instructions: TAKE THIS MED AT NIGHT. TAKE THIS MED EVERY SUNDAY/SUNDAY/SUNDAY/SUNDAY. carvedilol 6.25 mg tablet 6.25 mg PO BID levothyroxine 50 mcg Tablet 50 mcg PO .3XW@NIGHT Rx Instructions: TAKE THIS MED EVERY SUNDAY/SUNDAY/SUNDAY @ NIGHT Discontinued flecainide 50 mg tablet 50 mg PO BID Discharge Orders: Discharge Order (Routine); Ordered 01/23/22 Ordered By: Aryan Hdz/Other Patient Handouts: Labyrinthitis Admission Data Admit Date/Time: 01/22/22 18:57 Attending Provider: Aryan Kasper Admit Provider: En Bautista Primary Care Provider: Mariela Schulz Other Providers: En Bautista ; Rigo Velasquez Other Interventions: Discharge Summary Assessment (RN) Last Done: 01/23/22 13:39 Coding Level of Care Code D/C DAY MANAGEMENT <30 MINS Diagnoses PAF (paroxysmal atrial fibrillation) I48.0 Obstructive sleep apnea G47.33 Hyperlipidemia E78.2 Hyperlipidemia type: mixed hyperlipidemia HTN (hypertension) I10 Hypertension type: essential hypertension Hypothyroidism E03.9
[2022-01-23 13:40] VITALS: BP 112/77
--- NOTE | 2022-01-23 14:59 | Electrocardiogram Report ---
Test Reason : Blood Pressure : / mmHG Vent. Rate : 122 BPM Atrial Rate : 120 BPM P-R Int : 000 ms QRS Dur : 102 ms QT Int : 340 ms P-R-T Axes : 000 062 020 degrees QTc Int : 484 ms Poor data quality, interpretation may be adversely affected Probable atrial flutter with rapid ventricular response Abnormal ECG When compared with ECG of 22-JAN-2022 16:36, (unconfirmed) Atrial flutter is now Present Reconfirmed by Gustabo Porter ([id number]) on 01/23/2022 3:01:24 PM Referred By: REFERRED SELF Confirmed By:Gustabo Porter
== END 2022-01-23 14:03 | disposition home or self-care (01) | DRG 310 ==
LOC: ED 16:20 → 2E 18:57 → SUATTDRO 18:57 → 2E 19:54

== ENCOUNTER 2022-05-25 09:20 | Inpatient (IN) ==
[2022-05-25] MEDS ORDERED: SODIUM CHLORIDE 0.9% 1000ML 500 ML IV ONE (09:30)
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
--- NOTE | 2022-05-25 10:17 | XRay Report ---
XR chest 1V portable HISTORY: Chest pain, nonspecific COMPARISON: Chest 05/02/2022. FINDINGS: Stable left lower lobe calcified granuloma. Otherwise, the lungs are clear. No pleural effu sions. No pneumothorax. No evidence for pulmonary edema. The cardiac silhouette remains mildly enlarg ed. Stable bilateral hilar prominence. IMPRESSION: No significant change compared to the prior study. No acute process. ACT 112: Negative or not required by law. Electronically signed by: Yuri Del Toro M.D. 05/25/2022 10:15 AM
[2022-05-25] MEDS ORDERED: dilTIAZem HCl 5 MG/ML 5 ML VIAL IV STA (10:18)
[2022-05-25 10:20] LABS: Basophils # (auto) 0.07 K/uL (0-0.2); Basophils % (auto) 0.6 %; Eosinophils # (auto) 0.46 K/uL (0-0.50); Eosinophils % (auto) 3.8 %; Hematocrit (blood only) 49.1 % (42.0-52.0); Hemoglobin 16.6 g/dl (14.0-18.0); Immature Granulocytes # (auto) 0.07 K/uL (0.01-0.20); Immature Granulocytes % (auto) 0.6 %; Lymphocytes # (auto) 2.91 K/uL (1.2-3.4); Mean Corpuscular Hemoglobin 27.5 pg (25.0-34.0); Mean Corpuscular Hgb Conc 33.8 g/dL (32.0-36.0); Mean Corpuscular Volume 81.3 fL (80.0-100.0); Mean Platelet Volume 10.2 fL (9.4-12.4); Monocytes # (auto) 0.85 K/uL (0.11-0.59); Neutrophils # (auto) 7.79 K/uL (1.40-6.50); Platelet Count 219 K/uL (130-400); RDW Coefficient of Variation 15.1 % (11.5-14.5); Red Blood Count 6.04 M/uL (4.70-6.10); White Blood Count 12.15 K/ul (4.8-10.8)
[2022-05-25 10:24] LABS: Albumin Globulin Ratio 1.7 (0.9-2); Albumin Level 4.5 gm/dl (3.4-5.0); BUN Creatinine Ratio 24.5 (10-20); Bilirubin,Total 0.6 mg/dl (0.2-1.0); Calcium 10.2 mg/dl (8.5-10.1); Creatinine Clr Calc Pharmacy 95.5 ml/min; Est GFR (African American) 88.6 ml/min; Est GFR (Non-African American) 76.4 ml/min; Globulin 2.7 gm/dl (2.5-4.0); Magnesium 2.1 mg/dl (1.7-2.4); Potassium 3.8 mmol/L (3.5-5.1); Total Protein 7.2 gm/dl (6.0-8.3)
[2022-05-25 10:30] LABS: Troponin I High Sensitivity 9.1 pg/ml (0-20)
[2022-05-25] MEDS ORDERED: STAT IV Infusion **Titration per Protocol STA (10:32)
[2022-05-25 10:39] LABS: Thyroid Stimulating Hormone 6.049 uIu/ml (0.300-4.500)
[2022-05-25] MEDS: dilTIAZem HCL 125 MG in DEXTROSE 5% 100 ML IV SCH ×2 (11:01→23:28)
[2022-05-25 11:14] LABS: T4 Free Thyroxine 0.85 ng/dl (0.61-1.60)
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
[2022-05-25] MEDS ORDERED: FLECAINIDE ACETATE 100 MG TABLET PO ONE (12:30)
[2022-05-25] MEDS ORDERED: ALUMINUM/MAGNESIUM SUSP 30 ML UDC PO PRN (13:52)
[2022-05-25] MEDS ORDERED: ONDANSETRON INJ 2 MG/ML 2 ML VIAL IV PRN (13:52)
[2022-05-25] MEDS ORDERED: MAGNESIUM HYDROXIDE SUSP 30 ML UDC PO PRN (13:52)
[2022-05-25] MEDS ORDERED: ACETAMINOPHEN 325 MG TAB PO PRN (13:52)
[2022-05-25] MEDS ORDERED: POLYETHYLENE (MIRALAX) 17 GM PACK PO PRN (13:52)
[2022-05-25] MEDS: FLECAINIDE ACETATE 100 MG TABLET PO SCH (20:21)
[2022-05-25] MEDS: APIXABAN 5 MG TABLET PO SCH (20:21)
[2022-05-25] MEDS: PANTOprazole 40 MG TAB PO SCH (20:21)
[2022-05-25] MEDS ORDERED: LEVOTHYROXINE SODIUM 25 MCG TABLET PO SCH (23:00)
[2022-05-26 07:26] LABS: Basophils # (auto) 0.05 K/uL (0-0.2); Basophils % (auto) 0.6 %; Eosinophils % (auto) 4.7 %; Hematocrit (blood only) 44.8 % (42.0-52.0); Hemoglobin 14.7 g/dl (14.0-18.0); Immature Granulocytes # (auto) 0.03 K/uL (0.01-0.20); Immature Granulocytes % (auto) 0.4 %; Lymphocytes # (auto) 2.37 K/uL (1.2-3.4); Mean Corpuscular Hemoglobin 27.3 pg (25.0-34.0); Mean Corpuscular Hgb Conc 32.8 g/dL (32.0-36.0); Mean Corpuscular Volume 83.1 fL (80.0-100.0); Mean Platelet Volume 9.9 fL (9.4-12.4); Monocytes # (auto) 0.65 K/uL (0.11-0.59); Monocytes % (auto) 7.7 %; Neutrophils # (auto) 4.95 K/uL (1.40-6.50); Neutrophils % (auto) 58.6 %; Platelet Count 160 K/uL (130-400); Red Blood Count 5.39 M/uL (4.70-6.10); White Blood Count 8.45 K/ul (4.8-10.8)
[2022-05-26 07:40] LABS: Albumin Globulin Ratio 1.7 (0.9-2); Albumin Level 4.1 gm/dl (3.4-5.0); BUN Creatinine Ratio 21.8 (10-20); Bilirubin,Total 0.6 mg/dl (0.2-1.0); Calcium 9.1 mg/dl (8.5-10.1); Creatinine Clr Calc Pharmacy 91.5 ml/min; Est GFR (African American) 84.7 ml/min; Est GFR (Non-African American) 73.1 ml/min; Globulin 2.4 gm/dl (2.5-4.0); Magnesium 2.1 mg/dl (1.7-2.4); Potassium 4.2 mmol/L (3.5-5.1); Total Protein 6.5 gm/dl (6.0-8.3)
[2022-05-26] MEDS: FLECAINIDE ACETATE 100 MG TABLET PO SCH (08:50)
[2022-05-26] MEDS: PANTOprazole 40 MG TAB PO SCH (08:50)
[2022-05-26] MEDS: APIXABAN 5 MG TABLET PO SCH (08:50)
[2022-05-26] MEDS ORDERED: VENLAFAXINE HCL XR 150 MG CAPXR PO SCH (09:00)
[2022-05-26] MEDS ORDERED: LOSARTAN POTASSIUM 50 MG TAB PO SCH (09:00)
[2022-05-26] MEDS ORDERED: predniSONE 10 MG TABLET PO SCH (09:00)
--- NOTE | 2022-05-26 18:07 | Discharge Summary ---
Date of Service May 26, 2022 Admission HPI Per Admitting Provider Patrick Gonzalez is a 57 yo WM with a pmhx of paroxysmal afib who presented to the ER this morning c/o palpitations. Patient states symptoms started around 7am yesterday. He contacted his publication director, Dr. Velasquez, who advised him to take an extra dose of Flecainide and Coreg. Despite that, he woke up this morning with palpitations and lightheadedness. He contacted the office again and was instructed to go to the ER. Initial plan was to perform cardioversion in the ER, however, he recently had to discontinue his anticoagulation (Eliquis) due to undergoing an EGD and colonoscopy on 05/17 with polypectomy x2 but was instructed to resume on 05/18. His EKG demonstrated aflutter with a rate of 140 and he was started on Diltiazem with a bolus and then started on a drip. He currently has a rate in the 90s but remains irregular. Subsequently, patient has been referred to the hospitalist service for admission. Currently, he is comfortable and voices no complaints. Principal Diagnosis atrial fib/flutter converted to NSR Discharge Exam pt is without complaints cardiac is regular without murmur Discharge Data Allergies Allergy/AdvReac Type Severity Reaction Status Date / Time apple Allergy Severe THROAT Verified 05/25/22 11:30 SWELLS banana Allergy Severe THROAT Verified 05/25/22 11:30 SWELLS IF TOO RIPE- A LITTLE GREEN OKAY TO EAT. cantaloupe Allergy Severe THROAT Verified 05/25/22 11:30 SWELLS cucumber Allergy Severe THROAT Verified 05/25/22 11:30 SWELLS pineapple Allergy Severe THROAT Verified 05/25/22 11:30 SWELLS watermelon Allergy Severe THROAT Verified 05/25/22 11:30 SWELLS tree nut Allergy Intermediate Swelling Verified 05/25/22 11:30 of Lip/Tongue/Throat Consultations 05/25/22 11:18 ED Decision to Admit Stat 05/25/22 16:31 Consult Anesthesiology Routine 05/25/22 16:55 Consult Cardiology Routine Procedures Performed Operation Date: 05/26/22 12:00 <No data on this case meets the specified criteria> Hospital Course (1) Atrial flutter with rapid ventricular response: -converted to nsr after Diltiazem, cardiology insturctions to stop dilt and resume coreg and flecanide - Last TTE was in Mar 2020- Normal LV systolic function, no WMA, mild LVH, EF 55-60%, No significant valvular pathology - Continue Eliquis 5mg BID - * Consult note from Jan 2022 indicated if recurrence, would consider repeat ablation vs. trial of Tikosyn - - Continue Flecainide 100mg BID, hold Coreg (2) HTN (hypertension): - Continue Irbesartan (3) Hyperlipidemia: - Does not appear on any medications for this - F/u as outpatient, dietary modifications (4) Hypothyroidism: - TSH 6.049 with normal FT4 of 0.85 - Hold off on adjusting Synthroid dose (5) Obstructive sleep apnea: - Maintain CPAP use at (6) Depression: - Continue Venlafaxine (7) Sarcoidosis: - Prednisone 10mg daily by [facility] specialist last week and is to continue this dose daily until next week when he is seen in follow up Total Time Total Time Spent Total Time Spent (In Minutes): It required greater than 30 minutes to prepare this patient for discharge Discharge Plan Discharge Items Patient Disposition: Home - Self-Care Reason For Visit: AFIB, FLUTTER WITH RVR Discharge Diagnosis: afib/flutter with spontaneous conversion Activity: Per Instructions section Activity Comment: no active exercise, limit cafiene Non-emergency contact: Primary Care Provider and Phone Technician Call non-emergency contact if: your symptoms worsen Follow-up/Referrals: Rigo Velasquez DO [Physician] - (Dr. Kennedy office will contact the patient with follow up appointmement) Mariela Schulz MD [Primary Care Provider] - 05/30/22 8:25 am (Dr. Nieto will see the patient ) Diet: Regular Addtl Attending Provider Instructions: Your heart rhythm is spontaneously converted back to normal sinus rhythm. As per discussion with Dr. Velasquez's office will restart medications and have you follow-up with Dr. Velasquez's office sometime next week Certainly if you develop fluttering feelings rapid heart rate please report back to the hospital for reevaluation Pending Studies at Discharge: No Stand-Alone Forms: My [place], Smoking Cessation Medications and DC Order Prescriptions: New prednisone 10 mg Tablet 10 mg PO DAILY Qty: 30 0RF Continued multivitamin Tablet 1 tab PO QAM venlafaxine 150 mg capsule,extended release 24hr 150 mg PO QAM levothyroxine 25 mcg Tablet 25 mcg PO .4XW@NIGHT Rx Instructions: TAKE THIS MED AT NIGHT. TAKE THIS MED EVERY SUNDAY/SUNDAY/SUNDAY/SUNDAY. carvedilol 6.25 mg tablet 6.25 mg PO BID levothyroxine 50 mcg Tablet 50 mcg PO .3XW@NIGHT Rx Instructions: TAKE THIS MED EVERY SUNDAY/SUNDAY/SUNDAY @ NIGHT flecainide 100 mg tablet 100 mg PO Q12H Qty: 60 0RF Eliquis 5 mg tablet 5 mg PO BID Qty: 60 0RF omeprazole 40 mg Capsule,Delayed Release(Dr/Ec) 40 mg PO BID garlic 400 mg Tablet,Delayed Release (Dr/Ec) 400 mg PO QAM irbesartan 300 mg tablet 300 mg PO DAILY Discontinued prednisone 20 mg Tablet 20 mg PO QAM Discharge Orders: Discharge Order (Routine); Ordered 05/26/22 Ordered By: [place] Admission Data Admit Date/Time: 05/25/22 12:02 Attending Provider: [place] Admit Provider: Patrica Llanos Primary Care Provider: Mariela Schulz Other Providers: Patrica Llanos ; Pat Dominguez ; Broderick Matos Other Interventions: Discharge Summary Assessment (RN) Last Done: 05/26/22 12:42 Coding Level of Care Code 39926 INP/OBS DISCH >30 MIN Diagnoses Atrial flutter with rapid ventricular response I48.92 HTN (hypertension) I10 Hypertension type: essential hypertension Hyperlipidemia E78.2 Hyperlipidemia type: mixed hyperlipidemia Hypothyroidism E03.9 Obstructive sleep apnea G47.33 Depression F32.9 Sarcoidosis D86.9
[2022-05-26] MEDS ORDERED: LEVOTHYROXINE SODIUM 50 MCG TABLET PO SCH (23:00)
--- NOTE | 2022-05-27 00:28 | Electrocardiogram Report ---
Test Reason : Blood Pressure : / mmHG Vent. Rate : 142 BPM Atrial Rate : 144 BPM P-R Int : 136 ms QRS Dur : 098 ms QT Int : 316 ms P-R-T Axes : 000 038 -01 degrees QTc Int : 486 ms Possible Atrial flutter When compared with ECG of 22-JAN-2022 16:38, ST now depressed in Anterolateral leads Confirmed by Broderick Matos ([id number]) on 05/27/2022 12:27:40 AM Referred By: Rigo Velasquez Confirmed By:Broderick Matos
--- NOTE | 2022-05-27 00:34 | Electrocardiogram Report ---
Test Reason : Blood Pressure : / mmHG Vent. Rate : 088 BPM Atrial Rate : 142 BPM P-R Int : 000 ms QRS Dur : 088 ms QT Int : 358 ms P-R-T Axes : 014 047 030 degrees QTc Int : 433 ms Atrial flutter Abnormal ECG When compared with ECG of 25-MAY-2022 09:32, Vent. rate has decreased BY 54 BPM Confirmed by Broderick Matos ([id number]) on 05/27/2022 12:33:40 AM Referred By: Rigo Velasquez Confirmed By:Broderick Matos
--- NOTE | 2022-05-27 02:18 | Electrocardiogram Report ---
Test Reason : Blood Pressure : / mmHG Vent. Rate : 081 BPM Atrial Rate : 081 BPM P-R Int : 168 ms QRS Dur : 096 ms QT Int : 390 ms P-R-T Axes : 000 037 031 degrees QTc Int : 453 ms Poor data quality, interpretation may be adversely affected Normal sinus rhythm Possible Septal infarct , age undetermined Abnormal ECG When compared with ECG of 25-MAY-2022 11:24, Sinus rhythm has replaced Atrial flutter Septal infarct is now Present Confirmed by Broderick Matos ([id number]) on 05/27/2022 2:17:48 AM Referred By: Rigo Velasquez Confirmed By:Broderick Matos
== END 2022-05-26 13:20 | disposition home or self-care (01) | DRG 310 ==
LOC: ED 09:20 → SUATTDRO 12:02 → 2S 12:02

== ENCOUNTER 2022-10-29 09:17 | Observation (INO) ==
--- NOTE | 2022-10-29 09:38 | Emergency Department Note ---
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 calcified granuloma within the left lower lobe. A few small bibasilar linear densities suggesting subsegmental atelectasis or scarring. Otherwise, no focal lung consolidations to suggest a pneumonia. No evidence for pulmonary edema. The cardiac silhouette remains top normal in size. IMPRESSION: No acute process. ACT 112: Negative or not required by law. Electronically signed by: Yuri Del Toro M.D. 10/29/2022 10:33 AM Discharge Plan Visit Data Chief Complaint: Flu Like Symptoms Stated Complaint: FEVER, HEADACHE, NAUSEA, NECK PAIN ED Provider: Gurinder Phillips Discharge Problem: Anaplasmosis, Lymphopenia, Thrombocytopenia, Acute febrile illness, Dehydration Patient Disposition: Admitted As Inpatient Discharge Instructions Interventions: ED Discharge Assessment Last Done: 10/29/22 16:33
[2022-10-29] MEDS ORDERED: ONDANSETRON INJ 2 MG/ML 2 ML VIAL IV STA (09:58)
[2022-10-29] MEDS ORDERED: cefTRIAXone SODIUM 2,000 MG/70 ML BAG IV STA (09:58)
[2022-10-29] MEDS ORDERED: SODIUM CHLORIDE 0.9% 1000ML 2,000 ML IV ONE (09:58)
[2022-10-29] MEDS ORDERED: FAMOTIDINE 20MG IV PUSH 20 MG/5 ML SYR IV STA (09:58)
--- NOTE | 2022-10-29 10:35 | XRay Report ---
XR chest 1V portable HISTORY: Fever. Sepsis COMPARISON: Chest 05/25/2022. FINDINGS: There are low lung volumes. Stable calcified granuloma within the left lower lobe. A few sm all bibasilar linear densities suggesting subsegmental atelectasis or scarring. Otherwise, no focal l nataliia consolidations to suggest a pneumonia. No evidence for pulmonary edema. The cardiac silhouette re amira top normal in size. IMPRESSION: No acute process. ACT 112: Negative or not required by law. Electronically signed by: Yuri Del Toro M.D. 10/29/2022 10:33 AM
[2022-10-29 10:45] LABS: Appearance Urine Cloudy (Clear); Bacteria Urine Automated Negative (Negative); Bilirubin Urine Negative (Negative); Blood Urine Negative (Negative); Color Urine Dark Yellow; Epithelial Cell Urine Auto 0-5 /lpf (0-5); Glucose Urine UA Negative (Negative); Ketones Urine Trace (Negative); Leukocyte Esterase Urine Negative (Negative); Nitrite Urine Negative (Negative); Protein Urine Trace (Negative); RBC Urine Automated 0-4 /hpf (0-4); Specific Gravity Urine 1.022 (1.000-1.030); Urobilinogen Urine Negative (Negative)
[2022-10-29 10:54] LABS: Albumin Level 4.4 gm/dl (3.4-5.0); BUN Creatinine Ratio 11.4 (10-20); Bilirubin Direct 0.2 mg/dl (0-0.2); Bilirubin,Total 0.8 mg/dl (0.2-1.0); Calcium 9.2 mg/dl (8.6-10.3); Creatinine Clr Calc Pharmacy 120.3 ml/min; Magnesium 1.9 mg/dl (1.7-2.4); Phosphorus 2.8 mg/dl (2.5-4.9); Potassium 3.7 mmol/L (3.5-5.1); Total Protein 7.3 gm/dl (6.0-8.3)
[2022-10-29 11:00] LABS: Troponin I High Sensitivity 6.1 pg/ml (0-20)
[2022-10-29 11:04] LABS: Procalcitonin 0.64 ng/ml (0-0.5)
[2022-10-29 11:10] LABS: Lyme Ab IgG w/WB Rflx Negative (Negative); Lyme Ab IgM w/WB Rflx Negative (Negative)
[2022-10-29 11:14] LABS: INR 1.1 (0.9-1.1); Prothrombin Time 11.7 Seconds (9.0-12.0)
[2022-10-29 11:18] LABS: RBC Morphology Unremarkable
[2022-10-29 11:19] LABS: Basophils # (auto) 0.02 K/uL (0-0.2); Basophils % (auto) 0.5 %; Eosinophils # (auto) 0.06 K/uL (0-0.50); Eosinophils % (auto) 1.5 %; Hematocrit (blood only) 37.3 % (42.0-52.0); Hemoglobin 12.3 g/dl (14.0-18.0); Immature Granulocytes # (auto) 0.03 K/uL (0.01-0.20); Immature Granulocytes % (auto) 0.8 %; Lymphocytes # (auto) 0.37 K/uL (1.2-3.4); Lymphocytes % (auto) 9.3 %; Mean Corpuscular Volume 78.9 fL (80.0-100.0); Mean Platelet Volume 10.2 fL (9.4-12.4); Monocytes % (auto) 10.1 %; Neutrophils % (auto) 77.8 %; Platelet Count 103 K/uL (130-400); RDW Coefficient of Variation 14.1 % (11.5-14.5); Red Blood Count 4.73 M/uL (4.70-6.10); White Blood Count 3.98 K/ul (4.8-10.8)
[2022-10-29] MEDS ORDERED: ACETAMINOPHEN 10MG/ML Custom 650 MG in EMPTY BAG 0 ML IV STA (11:19)
[2022-10-29 11:44] LABS: Adenovirus PCR Not Detected (NotDetected); Bordetella parapertussis PCR Not Detected (NotDetected); Bordetella pertussis PCR Not Detected (NotDetected); Chlamydia pneumoniae PCR Not Detected (NotDetected); Coronavirus 229E PCR Not Detected (NotDetected); Coronavirus CoV-2 (COVID19)PCR Not Detected (NotDetected); Coronavirus HKU1 PCR Not Detected (NotDetected); Coronavirus NL63 PCR Not Detected (NotDetected); Coronavirus OC43PCR Not Detected (NotDetected); Human Metapneumovirus PCR Not Detected (NotDetected); Influenza A PCR Not Detected (NotDetected); Influenza B PCR Not Detected (NotDetected); Mycoplasma pneumoniae PCR Not Detected (NotDetected); Parainfluenza Virus 1 PCR Not Detected (NotDetected); Parainfluenza Virus 2 PCR Not Detected (NotDetected); Parainfluenza Virus 3 PCR Not Detected (NotDetected); Parainfluenza Virus 4 PCR Not Detected (NotDetected); Respiratory Syncytial VirusPCR Not Detected (NotDetected); Rhinovirus/Enterovirus PCR Not Detected (NotDetected)
[2022-10-29] MEDS ORDERED: DOXYCYCLINE HYCLATE 100 MG CAP PO STA (13:21)
[2022-10-29] MEDS ORDERED: PROCHLORPERAZINE 2 ML IV ONE (14:04)
[2022-10-29] MEDS ORDERED: LACTATED RINGER'S 1,000 ML IV SCH (14:15)
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
[2022-10-29] MEDS ORDERED: ACETAMINOPHEN 325 MG TAB PO STA (15:41)
[2022-10-29] MEDS ORDERED: PLASMA-LYTE A 1,000 ML IV SCH (16:34)
[2022-10-29] MEDS ORDERED: ONDANSETRON INJ 2 MG/ML 2 ML VIAL IV PRN (16:34)
[2022-10-29] MEDS ORDERED: ACETAMINOPHEN 325 MG TAB PO PRN (16:34)
[2022-10-29] MEDS: ACETAMINOPHEN 325 MG TAB PO SCH ×2 (17:57→21:55)
[2022-10-29] MEDS: carvediloL 6.25 MG TAB PO SCH (17:57)
[2022-10-29 18:53] LABS: Folate (Folic Acid),Ser orPlas > 22.30 ng/ml (>5.38)
[2022-10-29 18:54] LABS: Vitamin B12 495 pg/ml (180-914)
--- NOTE | 2022-10-29 19:37 | CT Scan Report ---
CT chest diagnostic wo con CT DOSE: 930.87 mGy.cm CLINICAL HISTORY: 57 years-old Male with AHRF, sepsis. Acute shortness breath with sepsis TECHNIQUE: Multiaxial CT images of the chest were performed without contrast. A dose lowering techni que was utilized adhering to the principles of ALARA. COMPARISON: 07/10/2022 FINDINGS: Unremarkable thyroid. No lymphadenopathy. The heart is mildly enlarged. Moderate coronary a rtery calcifications. No thoracic aortic aneurysm. Mild gynecomastia. No pneumothorax, pleural effusi on, airspace consolidation or pulmonary edema. There are a few scattered calcified pulmonary granulom marie with calcified hilar lymph nodes. Minimal bibasilar atelectasis. Central airways are patent. No acute process of the imaged upper abdomen. Hepatosplenomegaly with hepatic steatosis. Calcified gr anulomata of the spleen. Nonobstructing calculi in the superior pole left kidney measuring up to 4 mm . Unremarkable soft tissues. No acute fracture. IMPRESSION: 1. No acute intrathoracic abnormality. 2. Prior granulomatous disease. 3. Hepatosplenomegaly with hepatic steatosis. 4. Left nephrolithiasis. ACT 112: Negative or not required by law. Electronically signed by: Steve Bonilla M.D. 10/29/2022 7:36 PM
[2022-10-29] MEDS: PRAVASTATIN SOD 40 MG TAB PO SCH (19:58)
[2022-10-29] MEDS: FLECAINIDE ACETATE 100 MG TABLET PO SCH (19:59)
[2022-10-29] MEDS: APIXABAN 5 MG TABLET PO SCH (19:59)
[2022-10-29] MEDS ORDERED: LEVOTHYROXINE SODIUM 25 MCG TABLET PO SCH (21:00)
[2022-10-29] MEDS ORDERED: DOXYCYCLINE HYCLATE 100 MG in DEXTROSE 5% 100 ML IV SCH (22:00)
[2022-10-30] MEDS: ACETAMINOPHEN 325 MG TAB PO SCH ×3 (01:55→11:15)
[2022-10-30 07:50] LABS: Est GFR (African American) 109.5 ml/min; Est GFR (Non-African American) 94.5 ml/min; Potassium 3.8 mmol/L (3.5-5.1)
[2022-10-30 07:51] LABS: Albumin Globulin Ratio 1.4 (0.9-2); Albumin Level 3.8 gm/dl (3.4-5.0); BUN Creatinine Ratio 10.3 (10-20); Bilirubin,Total 1.1 mg/dl (0.2-1.0); Calcium 8.8 mg/dl (8.6-10.3); Creatinine Clr Calc Pharmacy 118.3 ml/min; Globulin 2.7 gm/dl (2.5-4.0); Total Protein 6.5 gm/dl (6.0-8.3)
[2022-10-30 08:08] LABS: Hemoglobin 11.2 g/dl (14.0-18.0); Mean Corpuscular Hgb Conc 32.9 g/dL (32.0-36.0); Mean Corpuscular Volume 78.9 fL (80.0-100.0); Mean Platelet Volume 9.8 fL (9.4-12.4); Platelet Count 76 K/uL (130-400); RDW Coefficient of Variation 14.2 % (11.5-14.5); RDW Standard Deviation 40.9 fL (36.4-46.3); Red Blood Count 4.31 M/uL (4.70-6.10); White Blood Count 4.61 K/ul (4.8-10.8)
[2022-10-30 08:14] LABS: Basophils # (auto) 0.02 K/uL (0-0.2); Basophils % (auto) 0.4 %; Eosinophils # (auto) 0.01 K/uL (0-0.50); Eosinophils % (auto) 0.2 %; Immature Granulocytes # (auto) 0.03 K/uL (0.01-0.20); Immature Granulocytes % (auto) 0.7 %; Lymphocytes # (auto) 0.45 K/uL (1.2-3.4); Lymphocytes % (auto) 9.8 %; Monocytes # (auto) 0.29 K/uL (0.11-0.59); Monocytes % (auto) 6.3 %; Neutrophils # (auto) 3.81 K/uL (1.40-6.50); Neutrophils % (auto) 82.6 %; Platelet Estimate Decreased (Normal)
--- NOTE | 2022-10-30 08:21 | Hospitalist Progress Note ---
Date of Service October 30, 2022 Assessment & Plan (1) Acute febrile illness: Plan: Flulike symptoms, fever, rigors - developed severe rigors and nausea, no defined source monitor of blood cultures negative to date - . Lymphopenia/thrombocytopenia concerning for anaplasma smear in neg; DNA is pending. Low suspicion for meningitis High sensitive troponin 6.1 UA uninfected appearing Lyme negative BioFire negative Rickettsia, Q fever, Anaplasma DNA pending CXR: No acute finding - BC pending Continue doxycycline for Anaplasma as patient initially presented with thrombocytopenia LFT abnormalities and leukopenia. Conversely this could be a viral infection and will improve on its own A-fib with history of RVR EKG on admission: Normal sinus rhythm, QTc 435, no territorial signs of ischemia Continue flecainide, carvedilol twice daily with meals Continue Eliquis Anxiety/depression Continue venlafaxine Hypothyroidism Continue Synthroid alternating 50/25 mcg Hypertension Continue irbesartan, carvedilol 2 times daily with meal Hyperlipidemia Continue pravastatin 40 mg p.o. nightly Sarcoidosis Follows with [facility] No current pharmacologic treatment CODE STATUS: Full code DVT prophylaxis: Anticoagulated Updated the patient's Bernarda (2) Thrombocytopenia: (3) Lymphopenia: (4) Dehydration: (5) HTN (hypertension): (6) PAF (paroxysmal atrial fibrillation): (7) Obstructive sleep apnea: (8) Sarcoidosis: Admission and Anticipated Discharge Date Admission Date: October 29, 2022 Subjective pt has headache, no nuchal rigidity, no confusion, no focal pain or abnormality Physical Exam Physical Exam: The patient appeared well nourished and normally developed. Vital signs as documented. Head exam is normocephalic atraumatic Neck is without JVD, thyromegaly, or carotid bruits. No nuchal rigidity no lymphadenopathy Lungs are clear to auscultation, no focal loss of breath sounds Cardiac exam, Rhythm is regular.. No murmurs, rubs or gallops. Abdominal exam reveals normal bowel sounds, soft non tender, no masses Extremities are nonedematous and both pedal pulses are present Neurologic exam is alert and oriented, no focal loss of strength or sensation Skin is without bruises or rashes Psychologically is without concerns for anxiety or depression.. Results & Data Results & Data Vital Signs (Past 12 Hours) Vital Signs Temp Pulse Resp BP Pulse Ox O2 Del Method O2 Flow Rate 10/30/22 07:12 98.2 F 85 20 127/71 97 Nasal Cannula 3 10/30/22 06:00 99.5 F 10/30/22 02:00 100.4 F H 97 H 16 97 Nasal Cannula 3 Laboratory Results Reviewed CBC reviewed chemistry reviewed LFTs (improving) Reviewed blood cultures x2 negative to date PG Care Time/CCT Total # of Minutes Spent Total Time Spent with Patient: Total time spent is greater than 50% in coordination of care (as documented) at patient's floor/unit and/or counseling patient: Coding Level of Care Code 80547 SUB INP/OBS CARE 3/50MIN Diagnoses Acute febrile illness R50.9 Thrombocytopenia D69.6 Lymphopenia D72.810 Dehydration E86.0 HTN (hypertension) I10 Hypertension type: essential hypertension PAF (paroxysmal atrial fibrillation) I48.0 Obstructive sleep apnea G47.33 Sarcoidosis D86.9 (5) HTN (hypertension) Hypertension type: essential hypertension Qualified Code(s): I10 - Essential (primary) hypertension
[2022-10-30] MEDS: VENLAFAXINE HCL XR 150 MG CAPXR PO SCH (09:55)
[2022-10-30] MEDS: LOSARTAN POTASSIUM 50 MG TAB PO SCH (09:55)
[2022-10-30] MEDS: APIXABAN 5 MG TABLET PO SCH ×2 (09:55→20:05)
[2022-10-30] MEDS: PANTOprazole 40 MG TAB PO SCH (09:55)
[2022-10-30] MEDS: MULTIVITAMIN TAB PO SCH (09:55)
[2022-10-30] MEDS: carvediloL 6.25 MG TAB PO SCH ×2 (09:55→17:48)
[2022-10-30] MEDS ORDERED: cefTRIAXone SODIUM 2,000 MG in DEXTROSE 5% 50 ML IV SCH (10:00)
--- NOTE | 2022-10-30 10:05 | Electrocardiogram Report ---
Test Reason : Blood Pressure : / mmHG Vent. Rate : 090 BPM Atrial Rate : 090 BPM P-R Int : 158 ms QRS Dur : 098 ms QT Int : 356 ms P-R-T Axes : 002 045 035 degrees QTc Int : 435 ms Normal sinus rhythm Normal ECG When compared with ECG of 29-SEP-2022 08:18, No significant change was found Confirmed by Gustabo Porter ([id number]) on 10/30/2022 10:05:28 AM Referred By: REFERRED SELF Confirmed By:Gustabo Porter
[2022-10-30] MEDS: FLECAINIDE ACETATE 100 MG TABLET PO SCH ×2 (10:49→20:05)
[2022-10-30] MEDS ORDERED: KETOROLAC 30 MG/ML VIAL IV ONE (10:56)
--- NOTE | 2022-10-30 12:34 | Electrocardiogram Report ---
Test Reason : Blood Pressure : / mmHG Vent. Rate : 122 BPM Atrial Rate : 122 BPM P-R Int : 168 ms QRS Dur : 094 ms QT Int : 296 ms P-R-T Axes : 058 057 031 degrees QTc Int : 421 ms Sinus tachycardia Otherwise normal ECG When compared with ECG of 29-OCT-2022 10:14, (unconfirmed) No significant change was found Confirmed by Gustabo Porter ([id number]) on 10/30/2022 12:33:48 PM Referred By: REFERRED SELF Confirmed By:Gustabo Porter
[2022-10-30] MEDS ORDERED: KETOROLAC TROMETHAMINE 15 MG/ML VIAL IV PRN (18:46)
[2022-10-30] MEDS ORDERED: traMADol HCL 50 MG TABLET PO PRN (18:46)
[2022-10-30] MEDS: PRAVASTATIN SOD 40 MG TAB PO SCH (20:05)
[2022-10-30] MEDS: DOXYCYCLINE HYCLATE 100 MG in DEXTROSE 5% 100 ML IV SCH (20:05)
[2022-10-30] MEDS ORDERED: LEVOTHYROXINE SODIUM 50 MCG TABLET PO SCH (21:00)
[2022-10-31 06:36] LABS: Hematocrit (blood only) 34.1 % (42.0-52.0); Hemoglobin 11.1 g/dl (14.0-18.0); Mean Corpuscular Hgb Conc 32.6 g/dL (32.0-36.0); Mean Corpuscular Volume 79.9 fL (80.0-100.0); Platelet Count 89 K/uL (130-400); RDW Coefficient of Variation 14.3 % (11.5-14.5); RDW Standard Deviation 41.1 fL (36.4-46.3); Red Blood Count 4.27 M/uL (4.70-6.10); White Blood Count 3.79 K/ul (4.8-10.8)
[2022-10-31 06:55] LABS: Basophils # (auto) 0.03 K/uL (0-0.2); Basophils % (auto) 0.8 %; Eosinophils # (auto) 0.29 K/uL (0-0.50); Eosinophils % (auto) 7.7 %; Immature Granulocytes # (auto) 0.03 K/uL (0.01-0.20); Immature Granulocytes % (auto) 0.8 %; Lymphocytes # (auto) 1.02 K/uL (1.2-3.4); Lymphocytes % (auto) 26.9 %; Monocytes # (auto) 0.42 K/uL (0.11-0.59); Monocytes % (auto) 11.1 %; Neutrophils % (auto) 52.7 %
[2022-10-31] MEDS: DOXYCYCLINE HYCLATE 100 MG in DEXTROSE 5% 100 ML IV SCH (08:39)
[2022-10-31] MEDS: LOSARTAN POTASSIUM 50 MG TAB PO SCH (08:42)
[2022-10-31] MEDS: PANTOprazole 40 MG TAB PO SCH (08:42)
[2022-10-31] MEDS: FLECAINIDE ACETATE 100 MG TABLET PO SCH (08:43)
[2022-10-31] MEDS: carvediloL 6.25 MG TAB PO SCH (08:43)
[2022-10-31] MEDS: VENLAFAXINE HCL XR 150 MG CAPXR PO SCH (08:43)
[2022-10-31] MEDS: MULTIVITAMIN TAB PO SCH (08:43)
[2022-10-31] MEDS: APIXABAN 5 MG TABLET PO SCH (08:43)
[2022-10-31 11:25] LABS: Adenovirus F 40/41 PCR Not Detected (NotDetected); Astrovirus PCR Not Detected (NotDetected); Campylobacter PCR Not Detected (NotDetected); Cryptosporidium PCR Not Detected (NotDetected); Cyclospora cayetanensis PCR Not Detected (NotDetected); Entamoeba histolytica PCR Not Detected (NotDetected); Enteroaggregative E.coli(EAEC) Not Detected (NotDetected); Enteropathogenic E.coli (EPEC) Not Detected (NotDetected); Enterotoxigenic E.coli (ETEC) Not Detected (NotDetected); Giardia lamblia PCR Not Detected (NotDetected); Norovirus GI/GII PCR Not Detected (NotDetected); Plesiomonas shigelloides PCR Not Detected (NotDetected); Rotavirus A PCR Not Detected (NotDetected); Salmonella PCR Not Detected (NotDetected); Sapovirus PCR Not Detected (NotDetected); Shiga-like Toxin E.coli (STEC) Not Detected (NotDetected); Shigella/Enteroinvasive E.coli Not Detected (NotDetected); Vibrio cholerae PCR Not Detected (NotDetected); Vibrio species PCR Not Detected (NotDetected); Yersinia enterocolitica PCR Not Detected (NotDetected)
--- NOTE | 2022-10-31 18:04 | Discharge Summary ---
Date of Service October 31, 2022 Admission HPI Per Admitting Provider Patrick Gonzalez is a 57-year-old male with a past medical history of hypertension, paroxysmal A-fib on Eliquis, hypothyroidism, depression, sarcoidosis who presented to the ER with fever, headache, nausea. +neck tense and painful in the mid neck. Sees pain management for ablation and has 'burned the nerves' which worked for 10-12 years. Seems to be more achy and sore last 48 hours. No other muscle aches. Fever, chills yesterday and today. Started yesterday morning No chest pain, no chest pressure No shortness of breath, no cough +Nausea. Dry heaves, no vomiting. 1x episode of diarrhea yesterday, no blood. No diarrhea today. No BM yet today Feels nauseus, but does not have stomach pain. "No pain, just a little sore when I dry heave." +mild headache x24 hours. Denies photosenstivity, phonosensitivity. Able to bring chin to chest without neck pain/worsened headache. Lives in the [place]. No tick bites. No rashes. Medical History: Reviewed. Endorses afib/flutter, DDD in low back, fatty liver, No NC/CAD/CHF, no lung disease, no kidney disease Medications: Reviewed. Took medications this morning Surgical History: Reviewed Family history: Reviewed Allergies: Reviewed. NKMA. Social History: Uses chew, 1 can per week. No cigarettes. No ETOH. No recreational substance use. Code Status: Full Principal Diagnosis possible tic borne illness Discharge Exam Patient has no nuchal rigidity no lymphadenopathy he is alert and oriented he has no visual field changes or deficits Discharge Data Allergies Allergy/AdvReac Type Severity Reaction Status Date / Time apple Allergy Severe THROAT Verified 09/28/22 13:03 SWELLS banana Allergy Severe THROAT Verified 09/28/22 13:03 SWELLS IF TOO RIPE- A LITTLE GREEN OKAY TO EAT. cantaloupe Allergy Severe THROAT Verified 09/28/22 13:03 SWELLS cucumber Allergy Severe THROAT Verified 09/28/22 13:03 SWELLS pineapple Allergy Severe THROAT Verified 09/28/22 13:03 SWELLS watermelon Allergy Severe THROAT Verified 09/28/22 13:03 SWELLS tree nut Allergy Intermediate Swelling Verified 09/28/22 13:03 of Lip/Tongue/Throat Consultations 10/29/22 13:55 ED Decision to Admit Stat Ordered Studies 10/29/22 17:17 CT chest diagnostic wo con Urgent Hospital Course (1) Acute febrile illness: Flulike symptoms, fever, rigors - developed severe rigors and nausea, no defined source blood cultures negative at time of discharge - . Lymphopenia/thrombocytopenia concerning for anaplasma smear in neg; DNA is pending.Discharged on doxycycline for Anaplasma as patient initially presented with thrombocytopenia LFT abnormalities and leukopenia Low suspicion for meningitis patient is not toxic and has no nuchal changes. Lyme negative -Monospot negative at time of discharge BioFire negative Rickettsia, Q fever, Anaplasma DNA pending CXR: No acute finding A-fib with history of RVR EKG on admission: Normal sinus rhythm, QTc 435, no territorial signs of ischemia Continue flecainide, carvedilol twice daily with meals Continue Eliquis Anxiety/depression Continue venlafaxine Hypothyroidism Continue Synthroid alternating 50/25 mcg Hypertension Continue irbesartan, carvedilol 2 times daily with meal Hyperlipidemia Continue pravastatin 40 mg p.o. nightly Sarcoidosis Follows with [facility] No current pharmacologic treatment CODE STATUS: Full code Updated the patient's Bernarda on the day of discharge all questions answered (2) Thrombocytopenia: (3) Lymphopenia: (4) Dehydration: (5) HTN (hypertension): (6) PAF (paroxysmal atrial fibrillation): (7) Obstructive sleep apnea: (8) Sarcoidosis: Total Time Total Time Spent Total Time Spent (In Minutes): It required greater than 30 minutes to prepare this patient for discharge Discharge Plan Discharge Items Patient Disposition: Home - Self-Care Reason For Visit: FEVER/RIGORS Discharge Diagnosis: febrile illness resolved Activity: Resume your previous activity Non-emergency contact: Primary Care Provider Call non-emergency contact if: your symptoms worsen Follow-up/Referrals: Mariela Schulz MD [Primary Care Provider] - 11/10/22 12:45 pm (APPOINTMENT WITH DR GUZMAN) Diet: Regular Ambulatory Orders: Complete Blood Count with Diff (Routine) Timeframe: 3 Days Location: Determined by Patient Ordered By: Rancho Paz Comprehensive Metabolic Panel (Routine) Timeframe: 3 Days Location: Determined by Patient Ordered By: Rancho Paz Addtl Attending Provider Instructions: please complete course of antibiotics, have some outpt blood work this week and see your primary care in one week please return if fever, headache is unremitting or other physical symptoms bring concern Pending Studies at Discharge: No Stand-Alone Forms: My [facility], Smoking Cessation Medications and DC Order Prescriptions: New prochlorperazine maleate 10 mg tablet 10 mg PO QID PRN (Reason: nausea and vomiting) Qty: 14 0RF doxycycline hyclate 100 mg tablet 100 mg PO BID 14 Days Qty: 28 0RF Continued multivitamin Tablet 1 tab PO QAM venlafaxine 150 mg capsule,extended release 24hr 150 mg PO QAM levothyroxine 25 mcg Tablet 25 mcg PO .4XW@NIGHT Rx Instructions: TAKE THIS MED AT NIGHT. TAKE THIS MED EVERY SUNDAY/SUNDAY/SUNDAY/SUNDAY. carvedilol 6.25 mg tablet 6.25 mg PO BID levothyroxine 50 mcg Tablet 50 mcg PO .3XW@NIGHT Rx Instructions: TAKE THIS MED EVERY SUNDAY/SUNDAY/SUNDAY @ NIGHT flecainide 100 mg tablet 100 mg PO Q12H Qty: 60 0RF Eliquis 5 mg tablet 5 mg PO BID Qty: 60 0RF omeprazole 40 mg Capsule,Delayed Release(Dr/Ec) 40 mg PO QAM irbesartan 300 mg tablet 300 mg PO QAM pravastatin 40 mg Tablet 40 mg PO HS Discharge Orders: Discharge Order (Routine); Ordered 10/31/22 Ordered By: Rancho Paz Admission Data Admit Date/Time: 10/29/22 14:33 Attending Provider: [place] Admit Provider: En Bautista Primary Care Provider: Mariela Schulz Other Providers: En Bautista Other Interventions: Discharge Summary Assessment (RN) Last Done: 10/31/22 14:02 Coding Level of Care Code 60988 INP/OBS DISCH >30 MIN Diagnoses Acute febrile illness R50.9 Thrombocytopenia D69.6 Lymphopenia D72.810 Dehydration E86.0 HTN (hypertension) I10 Hypertension type: essential hypertension PAF (paroxysmal atrial fibrillation) I48.0 Obstructive sleep apnea G47.33 Sarcoidosis D86.9
[2022-11-02 05:12] LABS: Babesia microti DNA Not Detected (Not Detected)
[2022-11-02 10:09] LABS: Ehrlichia chaff DNA Bld Negative (Negative)
[2022-11-04 00:32] LABS: Q Fever IgG, Phase I NEGATIVE; Q Fever Phase I IgM Antibody NEGATIVE; Q Fever Phase II IgG Antibody NEGATIVE; Q Fever Phase II IgM Antibody NEGATIVE; R. typhi IgG Ab NOT DETECTED; R. typhi IgM Ab NOT DETECTED; RMSF IgG Ab NOT DETECTED; RMSF IgM Ab NOT DETECTED
== END 2022-10-31 13:45 | disposition home or self-care (01) ==
LOC: 3N 09:17 → ED 09:17 → SUATTDRO 14:33 → 3N 16:33

== ENCOUNTER 2023-01-28 14:23 | Inpatient (IN) ==
[2023-01-28 15:04] LABS: Basophils # (auto) 0.06 K/uL (0.00-0.20); Basophils % (auto) 0.8 %; Eosinophils # (auto) 0.53 K/uL (0.00-0.50); Eosinophils % (auto) 6.9 %; Hematocrit (blood only) 44.8 % (42.0-52.0); Hemoglobin 14.5 g/dl (14.0-18.0); Immature Granulocytes # (auto) 0.06 K/uL (0.01-0.20); Immature Granulocytes % (auto) 0.8 %; Lymphocytes # (auto) 2.19 K/uL (1.20-3.40); Lymphocytes % (auto) 28.5 %; Mean Corpuscular Hemoglobin 25.9 pg (25.0-34.0); Mean Corpuscular Hgb Conc 32.4 g/dL (32.0-36.0); Mean Corpuscular Volume 80.1 fL (80.0-100.0); Mean Platelet Volume 9.7 fL (9.4-12.4); Monocytes # (auto) 0.67 K/uL (0.11-0.59); Monocytes % (auto) 8.7 %; Neutrophils # (auto) 4.17 K/uL (1.40-6.50); Neutrophils % (auto) 54.3 %; Platelet Count 268 K/uL (130-400); RDW Standard Deviation 45.2 fL (36.4-46.3); Red Blood Count 5.59 M/uL (4.70-6.10); White Blood Count 7.68 K/ul (4.8-10.8)
--- NOTE | 2023-01-28 15:11 | XRay Report ---
XR chest 1V portable CLINICAL HISTORY: Chest pain, nonspecific COMPARISON STUDY: Chest radiograph and chest CT January 22, 2023 FINDINGS: Lung volumes are normal. Lungs are clear. There is no pneumothorax or pleural effusion. Car diac size is normal. Mediastinal contours are normal. There is no evidence for pulmonary edema. IMPRESSION: No acute cardiopulmonary findings. ACT 112: Negative or not required by law. Electronically signed by: Vickey Villafana M.D. 01/28/2023 3:10 PM
[2023-01-28 15:21] LABS: Alanine Aminotransferase 52 U/L (7-52); Albumin Globulin Ratio 1.4 (0.9-2); Albumin Level 4.9 gm/dl (3.4-5.0); Alkaline Phosphatase 127 U/L (34-104); Anion Gap 9 (3-11); Aspartate Aminotransferase 51 U/L (13-39); BUN Creatinine Ratio 16.5 (10-20); Bilirubin,Total 0.9 mg/dl (0.2-1.0); Blood Urea Nitrogen 20 mg/dl (6-23); Calcium 10.2 mg/dl (8.6-10.3); Carbon Dioxide 27 mmol/L (21-32); Chloride 102 mmol/L (98-107); Est GFR (African American) 75.5 ml/min; Est GFR (Non-African American) 65.1 ml/min; Globulin 3.5 gm/dl (2.5-4.0); Glucose 127 mg/dl (70-99(Fasting)); Potassium 4.1 mmol/L (3.5-5.1); Sodium 138 mmol/L (136-145); Total Protein 8.4 gm/dl (6.0-8.3)
[2023-01-28 15:27] LABS: Troponin I High Sensitivity 5.2 pg/ml (0-20)
[2023-01-28] MEDS ORDERED: dexAMETHasone**PF** 10 MG/ML VIAL IV ONE (15:27)
[2023-01-28] MEDS ORDERED: ALBUT/IPRATROP 3MG/0.5MG NEB 3 ML VIAL NEB STA (15:27)
[2023-01-28] MEDS ORDERED: cefTRIAXone SODIUM 2,000 MG/50 ML BAG IV STA (15:35)
[2023-01-28 15:39] LABS: Partial Thromboplastin Time 27.6 Seconds (21.0-31.0); Prothrombin Time 10.9 Seconds (9.0-12.0)
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
[2023-01-28] MEDS ORDERED: ONDANSETRON INJ 2 MG/ML 2 ML VIAL IV STA (16:04)
[2023-01-28 17:29] LABS: Adenovirus PCR Not Detected (NotDetected); Bordetella parapertussis PCR Not Detected (NotDetected); Bordetella pertussis PCR Not Detected (NotDetected); Chlamydia pneumoniae PCR Not Detected (NotDetected); Coronavirus 229E PCR Not Detected (NotDetected); Coronavirus CoV-2 (COVID19)PCR Not Detected (NotDetected); Coronavirus HKU1 PCR Not Detected (NotDetected); Coronavirus NL63 PCR Not Detected (NotDetected); Coronavirus OC43PCR Not Detected (NotDetected); Human Metapneumovirus PCR Not Detected (NotDetected); Influenza A PCR Not Detected (NotDetected); Influenza B PCR Not Detected (NotDetected); Mycoplasma pneumoniae PCR Not Detected (NotDetected); Parainfluenza Virus 1 PCR Not Detected (NotDetected); Parainfluenza Virus 2 PCR Not Detected (NotDetected); Parainfluenza Virus 3 PCR Not Detected (NotDetected); Parainfluenza Virus 4 PCR Not Detected (NotDetected); Respiratory Syncytial VirusPCR Not Detected (NotDetected); Rhinovirus/Enterovirus PCR Not Detected (NotDetected)
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
[2023-01-28] MEDS ORDERED: ALBUT/IPRATROP 3MG/0.5MG NEB 3 ML VIAL NEB ONE (18:32)
[2023-01-28] MEDS ORDERED: ondansetron HCL 6 MG in DEXTROSE 5% 50 ML IV PRN (18:32)
[2023-01-28 18:35] LABS: C Reactive Protein 1.36 mg/dl (0-0.5)
[2023-01-28] MEDS ORDERED: ondansetron HCL 4 MG in DEXTROSE 5% 50 ML IV PRN (18:35)
[2023-01-28] MEDS ORDERED: ONDANSETRON INJ 2 MG/ML 2 ML VIAL IV PRN (18:49)
[2023-01-28] MEDS ORDERED: DOFETILIDE 125 MCG CAPSULE PO ONE (20:00)
[2023-01-28] MEDS ORDERED: AZITHROMYCIN 500 MG in DEXTROSE 5% 250 ML IV STA (20:06)
[2023-01-28] MEDS: methylPREDNISolone 40 MG in SYRINGE 0 ML IV SCH (21:51)
[2023-01-28] MEDS: PRAVASTATIN SOD 40 MG TAB PO SCH (21:51)
[2023-01-28] MEDS: AMOXICILLIN/CLAVULANATE 875 MG TAB PO SCH (21:51)
[2023-01-28] MEDS: LEVOTHYROXINE SODIUM 50 MCG TABLET PO SCH (21:51)
[2023-01-28] MEDS: carvediloL 25 MG TAB PO SCH (21:51)
[2023-01-28] MEDS: ALBUT/IPRATROP 3MG/0.5MG NEB 3 ML VIAL NEB SCH (23:16)
--- NOTE | 2023-01-28 23:35 | CT Scan Report ---
Exam(s): CT CHEST With Contrast IV Amt: OPTIRAY 320 82ML EXAM: CT Chest With Intravenous Contrast CLINICAL HISTORY: Reason for exam: monitoring for foreign body in bronchi. TECHNIQUE: Axial computed tomography images of the chest with intravenous contrast. CTDI is 15.35 mGy and DLP is 476.63 mGy-cm. Automated exposure control was utilized for the study. A dose lowering technique was utilized adhering to the principles of ALARA. CONTRAST: Patient received OPTIRAY 320 82ML of IV contrast COMPARISON: No relevant prior studies available. FINDINGS: Lungs: Calcified granuloma at the left lung base. No mass. No consolidation. Pleural space: Unremarkable. No pneumothorax. No significant effusion. Heart: Unremarkable. No cardiomegaly. No significant pericardial effusion. No significant coronary artery calcifications. Bones/joints: Degenerative changes of the spine. No acute fracture. No dislocation. Soft tissues: Unremarkable. Vasculature: Atherosclerotic changes of the aorta. No thoracic aortic aneurysm. Lymph nodes: Unremarkable. No enlarged lymph nodes. Liver: Hepatic steatosis. IMPRESSION: No acute findings in the chest. No aspirated foreign body identified. Electronically signed by: Wagner Franklin MD 01/28/23 23:34 PM
--- NOTE | 2023-01-29 01:07 | CT Scan Report ---
Exam(s): CT NECK With Contrast IV Amt: 82ML OPTIRAY 320 EXAM: CT Neck With Intravenous Contrast CLINICAL HISTORY: Reason for exam: monitoring for foreign body. TECHNIQUE: Axial computed tomography images of the neck with intravenous contrast. CTDI is 24.61 mGy and DLP is 917.59 mGy-cm. Automated exposure control was utilized for the study. A dose lowering technique was utilized adhering to the principles of ALARA. CONTRAST: Patient received 82ML OPTIRAY 320 of IV contrast COMPARISON: No relevant prior studies available. FINDINGS: Oropharynx: Unremarkable. No significant tonsillar enlargement. No peritonsillar abscess. Hypopharynx: Unremarkable. Larynx: Unremarkable. Normal epiglottis. Prominent cricopharyngeus muscle. Trachea: Unremarkable. Retropharyngeal space: Unremarkable. Submandibular/parotid glands: Unremarkable. Glands are normal in size. Thyroid: Unremarkable. No enlarged or calcified nodules. 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 No acute fracture. Soft tissues: Unremarkable. Vasculature: No acute findings. Lymph nodes: Prominent mediastinal lymph nodes. Lung apices: Unremarkable as visualized. Paranasal sinuses: Chronic left maxillary and ethmoid sinusitis. IMPRESSION: No evidence of radiopaque foreign body. Critical spinal canal stenosis at C6 and C7. Recommend MRI of the cervical spine to evaluate for myelopathy. Electronically signed by: Harper Graf MD 01/29/23 01:06 AM
[2023-01-29 06:49] LABS: Basophils # (auto) 0.01 K/uL (0.00-0.20); Basophils % (auto) 0.1 %; Hematocrit (blood only) 39.1 % (42.0-52.0); Immature Granulocytes # (auto) 0.07 K/uL (0.01-0.20); Immature Granulocytes % (auto) 0.9 %; Lymphocytes # (auto) 1.16 K/uL (1.20-3.40); Lymphocytes % (auto) 14.7 %; Mean Corpuscular Hemoglobin 26.8 pg (25.0-34.0); Mean Corpuscular Hgb Conc 33.2 g/dL (32.0-36.0); Mean Corpuscular Volume 80.6 fL (80.0-100.0); Monocytes # (auto) 0.12 K/uL (0.11-0.59); Monocytes % (auto) 1.5 %; Neutrophils # (auto) 6.54 K/uL (1.40-6.50); Neutrophils % (auto) 82.8 %; Platelet Count 249 K/uL (130-400); RDW Coefficient of Variation 17.1 % (11.5-14.5); RDW Standard Deviation 43.8 fL (36.4-46.3); Red Blood Count 4.85 M/uL (4.70-6.10)
[2023-01-29] MEDS: ALBUT/IPRATROP 3MG/0.5MG NEB 3 ML VIAL NEB SCH ×4 (07:00→20:04)
[2023-01-29 08:10] LABS: Allen Test Pos (Pos); Base Excess ABG 0.8 mEq/L (-9-1.8); HCO3 ABG 26 mmol/L (19-24); Oxygen Saturation ABG 98.5 % (90-95); PCO2 ABG 43 mmHg (35-46); PO2 ABG 96 mmHg (80-95); pH ABG 7.39 (7.35-7.45)
[2023-01-29 08:13] LABS: Albumin Level 4.6 gm/dl (3.4-5.0); Bilirubin,Total 0.7 mg/dl (0.2-1.0); Calcium 9.7 mg/dl (8.6-10.3); Potassium 4.3 mmol/L (3.5-5.1)
[2023-01-29 08:17] LABS: Prothrombin Time 11.2 Seconds (9.0-12.0)
[2023-01-29 08:27] LABS: Albumin Globulin Ratio 1.5 (0.9-2); BUN Creatinine Ratio 24.1 (10-20); Creatinine Clr Calc Pharmacy 117.6 ml/min; Est GFR (African American) 109.5 ml/min; Est GFR (Non-African American) 94.5 ml/min; Globulin 3.1 gm/dl (2.5-4.0); Total Protein 7.7 gm/dl (6.0-8.3)
[2023-01-29] MEDS: carvediloL 25 MG TAB PO SCH ×2 (08:44→18:24)
[2023-01-29] MEDS: LOSARTAN POTASSIUM 50 MG TAB PO SCH (08:45)
[2023-01-29] MEDS: PANTOprazole 40 MG TAB PO SCH (08:45)
[2023-01-29] MEDS: DOFETILIDE 125 MCG CAPSULE PO SCH ×2 (08:45→19:59)
[2023-01-29] MEDS: AMOXICILLIN/CLAVULANATE 875 MG TAB PO SCH ×2 (08:45→19:59)
[2023-01-29] MEDS: VENLAFAXINE HCL XR 150 MG CAPXR PO SCH (08:46)
[2023-01-29] MEDS: AZITHROMYCIN 500 MG in DEXTROSE 5% 250 ML IV SCH (08:55)
[2023-01-29] MEDS: methylPREDNISolone 40 MG in SYRINGE 0 ML IV SCH ×2 (08:55→20:01)
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
[2023-01-29] MEDS ORDERED: ALBUTEROL HFA 8 GM INHALER INH PRN (11:11)
--- NOTE | 2023-01-29 12:00 | XRay Report ---
XR chest 1V portable HISTORY: hypoxemia COMPARISON: Chest 01/28/2023. FINDINGS: There are old, healed right posterior rib fractures. The heart is normal in size. No pleura l effusions. No pneumothorax. Calcified granuloma again noted within the left lower lobe. No focal amador ng consolidations to suggest a pneumonia. No evidence for pulmonary edema. IMPRESSION: No acute process. ACT 112: Negative or not required by law. Electronically signed by: Yuri Del Toro M.D. 01/29/2023 11:59 AM
[2023-01-29] MEDS: FLUTICASONE/VILANTEROL 100/25MCG 14 PUFFS/INHALER INH SCH (14:02)
--- NOTE | 2023-01-29 17:30 | XCELERA ---
[id number] \\[id number]
[2023-01-29] MEDS: LEVOTHYROXINE SODIUM 50 MCG TABLET PO SCH (18:24)
[2023-01-29] MEDS: PRAVASTATIN SOD 40 MG TAB PO SCH (19:59)
--- NOTE | 2023-01-29 22:35 | Hospitalist Progress Note ---
Date of Service January 29, 2023 Assessment & Plan (1) SOB (shortness of breath): (2) Hypoxia: (3) Wheezing: (4) History of smoking 10-25 pack years: Plan Wheezing: Plan: -Admit to med/tele on pulse oximetry -Currently hemodynamically stable and stable on 2L NC -At this time the patient's history and presentation are most consistent with an obstructive process as he has significant inspiratory and expiratory wheezing on exam -No stridor or significant respiratory distress at this time -The patient does not have a hx of reactive airway disease and does not have a diagnosis of COPD despite his smoking hx -The patient is without a leukocytosis or focal consolidation on CXR again today. CT of the chest on 01/22 did not BL lower lung infiltrates but were read as "very mild" -He has no signs of volume overload to suggest acute CHF -Procal on admission is still negative -At this time we will treat him as reactive airway disease with an hour long DuoNeb, 40 mg IV Solu-Medrol BID, incentive spirometry, flutter therapy, and prn O2 -Will continue scheduled DuoNebs after his hour-long -As the patient is still without a leukocytosis and procal is still negative -With significant wheezing, no hx of reactive airway disease, and hx of possible foreign body cannot rule out possible foreign body causing his symptoms -Will continue Augmentin and add azithromycin for atypical coverage -Appreciate input from Pulmonary, LABA/LAMA (2) Hypoxia: Plan: -See wheezing (3) PAF (paroxysmal atrial fibrillation): Plan: -Currently in NSR -S/P 2nd cardiac [place] [facility] -Continue Carvedilol and Tikosyn (4) HTN (hypertension): Plan: -Stable -Continue irbesartan (5) Hyperlipidemia: Plan: -Continue statin (6) Sarcoidosis: Plan: -No signs of granulomas or cavitations on CXR or recent CT -Continue to monitor (7) Hypothyroidism: Plan: -Conitnue levothyroxine (8) Depression: Plan: -Continue Venlafaxine Admission and Anticipated Discharge Date Admission Date: January 28, 2023 Subjective Patient reports no new symptoms. Review of Systems Review of Systems: All systems reviewed & are unremarkable except as noted in HPI & below Physical Exam Physical Exam: General: In no acute distress, stated age, ill appearing but non-toxic appearing HEENT: Normocephalic, atraumatic, no scleral icterus, pupils around round, symmetrical, and reactive to light, moist mucus membranes, trachea midline, no thyromegaly Chest/Pulm: No respiratory distress, symmetrical chest expansion, significant expiratory wheezing thoughout Cardiac: RRR, no murmurs noted Abdomen: Negative for ascites and bruising, normoactive bowel sounds, soft, non- tender to palpation throughout Musculoskeletal: Symmetrical and without signs of acute trauma, upper and lower extremities with full ROM, no atrophy, spasticity, or flaccidity Extremities: Radial, dorsalis pedis, and posterior tibial pulses are intact and symmetrical, no edema noted in the BL LE's Skin: Warm, dry, no rashes , lesions, or scars noted Neuro: Alert and oriented to person, place, month, year, and president, no focal defects, CN II-XII tested and intact, finger to nose test negative, no tremors noted Psych: No acute distress, calm and cooperative during the exam Results & Data Results & Data Vital Signs (Past 12 Hours) Vital Signs Temp Pulse Resp BP Pulse Ox O2 Del Method O2 Flow Rate 01/29/23 19:41 36.9 C 93 H 20 118/87 92 Nasal Cannula 2 01/29/23 17:08 36.9 C 81 17 132/75 92 Nasal Cannula 2 01/29/23 17:03 Nasal Cannula 2 01/29/23 14:28 75 16 96 Oxymask 3 PG Care Time/CCT Total # of Minutes Spent Total Time Spent with Patient: Total time spent is greater than 50% in coordination of care (as documented) at patient's floor/unit and/or counseling patient: Coding Level of Care Code 94156 SUB INP/OBS CARE 2/35MIN Diagnoses SOB (shortness of breath) R06.02 Hypoxia R09.02 Wheezing R06.2 History of smoking 10-25 pack years Z87.897
[2023-01-30] MEDS: ALBUT/IPRATROP 3MG/0.5MG NEB 3 ML VIAL NEB SCH ×4 (07:07→19:55)
[2023-01-30 07:34] LABS: Basophils # (auto) 0.01 K/uL (0.00-0.20); Basophils % (auto) 0.1 %; Hematocrit (blood only) 39.3 % (42.0-52.0); Immature Granulocytes # (auto) 0.13 K/uL (0.01-0.20); Lymphocytes # (auto) 1.36 K/uL (1.20-3.40); Lymphocytes % (auto) 10.9 %; Mean Corpuscular Hemoglobin 26.1 pg (25.0-34.0); Mean Corpuscular Hgb Conc 33.1 g/dL (32.0-36.0); Mean Corpuscular Volume 78.8 fL (80.0-100.0); Mean Platelet Volume 9.7 fL (9.4-12.4); Monocytes # (auto) 0.83 K/uL (0.11-0.59); Monocytes % (auto) 6.7 %; Neutrophils # (auto) 10.14 K/uL (1.40-6.50); Neutrophils % (auto) 81.3 %; Platelet Count 279 K/uL (130-400); RDW Coefficient of Variation 16.2 % (11.5-14.5); RDW Standard Deviation 44.4 fL (36.4-46.3); Red Blood Count 4.99 M/uL (4.70-6.10); White Blood Count 12.47 K/ul (4.8-10.8)
[2023-01-30 08:06] LABS: Prothrombin Time 11.1 Seconds (9.0-12.0)
[2023-01-30] MEDS: FLUTICASONE/VILANTEROL 100/25MCG 14 PUFFS/INHALER INH SCH (08:35)
[2023-01-30] MEDS: PANTOprazole 40 MG TAB PO SCH (08:36)
[2023-01-30] MEDS: carvediloL 25 MG TAB PO SCH ×2 (08:36→16:31)
[2023-01-30] MEDS: methylPREDNISolone 40 MG in SYRINGE 0 ML IV SCH ×2 (08:36→21:25)
[2023-01-30] MEDS: AMOXICILLIN/CLAVULANATE 875 MG TAB PO SCH ×2 (08:37→20:49)
[2023-01-30] MEDS: LOSARTAN POTASSIUM 50 MG TAB PO SCH (08:37)
[2023-01-30] MEDS: DOFETILIDE 125 MCG CAPSULE PO SCH ×2 (08:37→20:50)
[2023-01-30] MEDS: VENLAFAXINE HCL XR 150 MG CAPXR PO SCH (08:37)
[2023-01-30] MEDS: AZITHROMYCIN 500 MG in DEXTROSE 5% 250 ML IV SCH (08:44)
[2023-01-30 08:52] LABS: Albumin Level 4.7 gm/dl (3.4-5.0); Bilirubin,Total 0.6 mg/dl (0.2-1.0); Potassium 4.6 mmol/L (3.5-5.1)
[2023-01-30 08:58] LABS: Albumin Globulin Ratio 1.6 (0.9-2); BUN Creatinine Ratio 26.9 (10-20); Creatinine Clr Calc Pharmacy 94.7 ml/min; Est GFR (African American) 86.6 ml/min; Est GFR (Non-African American) 74.7 ml/min; Total Protein 7.7 gm/dl (6.0-8.3)
--- NOTE | 2023-01-30 09:28 | Pulmonology Progress Note ---
Date of Service January 30, 2023 Assessment & Plan (1) SOB (shortness of breath): (2) Hypoxia: (3) Wheezing: (4) History of smoking 10-25 pack years: Plan IMPRESSION: 57-year-old male presenting with upper respiratory infection, persistent wheezing, and dyspnea exertion after recently undergoing atrial flutter ablation procedure. Procedure did result in a prolonged intubation and apparently the patient had bleeding issues necessitating bronchoscopy at that time. Full details were not available to review. RECOMMENDATIONS: 1. Shortness of breath -recommend getting records from [facility] regarding the patient's procedure and what endoscopy was performed at that time to further evaluate the etiology of the bleeding and what interventions were required. At this point in time I think continuing steroids is reasonable. 5-day burst should be adequate. Outpatient PFTs recommended. No indication for antimicrobial therapy currently. The patient believes that his symptoms may be related to the Tikosyn and recommend that he discuss with cardiology prior to consideration of discontinuation. 2. Hypoxia -blood gas showed no evidence of hypercarbia. He is not anemic. Bicarb levels normal. CT showed no significant parenchymal disease. The echo does not appear to have been performed with a bubble study so we were unable to exclude kroso-rl-[id number] shunt physiology. There did not appear to be any pulmonary hypertension identified. Formal two-step will be required 3. Wheezing -unclear etiology but certainly the amount of blood described by the patient in the airways could have caused some degree of bronchospasm. Would continue with prednisone at this point in time. Outpatient PFTs recommended. 4. History of smoking -trivial tobacco history in the past. Outpatient PFTs recommended. 5. Obstructive sleep apnea - Continue with home CPAP settings. Thank you for allowing us to participate in the care of this pleasant patient. Pulmonary medicine will continue to follow. Admission and Anticipated Discharge Date Admission Date: January 28, 2023 Subjective Patient seen and examined. EMR reviewed. The patient states that he feels better with supplemental oxygen. He still feels that he is wheezing. The inhalers have not really offered him much of a benefit. He does not report any significant tobacco history previously. He does feel short of breath with exertion but states the oxygen helps with physical activity. He feels tight in his chest. The patient temporally relates all of his symptoms due to his procedure (EP ablation) performed at [facility]. He states that he was intubated for about 8 hours and apparently had multiple bronchoscopies performed due to bleeding issues. No source of bleeding was identified. He also is concerned that the current symptoms may be temporally related to the Tikosyn. He has had issues with amiodarone in the past. The patient does have a history of sleep disordered breathing and uses CPAP at home. He has not used CPAP for the last several weeks due to congestion in his chest. Review of Systems Review of Systems: All systems reviewed & are unremarkable except as noted in Subjective Physical Exam Constitutional: WD/WN, vitals as above Neck: trachea midline, no thyromegaly Respiratory: normal respiratory effort, lungs clear to auscultation Cardiovascular: RRR, no murmur, no edema Gastrointestinal (Abdomen): normal bowel sounds, soft, nontender, no hepatosplenomegaly Musculoskeletal: Extremities: extremities normal to inspection Skin: no rashes, warm and dry Neurologic: Nonfocal exam Lymphatic: no cervical lymphadenopathy Results & Data Results & Data Vital Signs (Past 12 Hours) Vital Signs Temp Pulse Pulse Resp BP Pulse Ox O2 Del Method 01/30/23 08:04 36.3 C L 74 18 147/87 H 93 Nasal Cannula 01/30/23 07:35 Nasal Cannula 01/30/23 07:08 89 18 95 Nasal Cannula 01/30/23 05:58 73 01/30/23 03:36 36.9 C 77 18 151/86 H 94 Nasal Cannula 01/30/23 00:34 Nasal Cannula 01/29/23 23:29 36.8 C 79 20 151/80 H 93 Nasal Cannula 01/29/23 22:01 79 O2 Flow Rate 01/30/23 08:04 2 01/30/23 07:35 2 01/30/23 07:08 3 01/30/23 05:58 01/30/23 03:36 2 01/30/23 00:34 2 01/29/23 23:29 2 01/29/23 22:01 Diagnostic Findings Transthoracic echocardiogram showed an EF of 70% without regional wall motion abnormalities. No LVH. Right ventricle showed normal size and systolic function. No ASD but unable to exclude PFO. No significant valvular issues. No pulmonary hypertension. No pericardial effusion. PG Care Time/CCT Total # of Minutes Spent Total Time Spent with Patient: Total time spent is greater than 50% in coordination of care (as documented) at patient's floor/unit and/or counseling patient: Coding Level of Care Code 10821 SUB INP/OBS CARE 50MIN Diagnoses SOB (shortness of breath) R06.02 Hypoxia R09.02 Wheezing R06.2 History of smoking 10-25 pack years Z87.898
--- NOTE | 2023-01-30 16:27 | XCELERA ---
[id number] [id number]
[2023-01-30] MEDS ORDERED: Nursing to Pharmacy Communication SCH (16:45)
[2023-01-30] MEDS: PRAVASTATIN SOD 40 MG TAB PO SCH (20:49)
[2023-01-30] MEDS ORDERED: LEVOTHYROXINE SODIUM 50 MCG TABLET PO SCH (21:00)
--- NOTE | 2023-01-30 22:14 | Discharge Summary ---
Date of Service January 30, 2023 Admission HPI Per Admitting Provider Patrick Gonzalez is a 57-year-old male with a past medical history of hypertension, paroxysmal A-fib on Eliquis S/P recent ablation on 01/10 at [facility], hypothyroidism, depression, sarcoidosis, and RENE who presented to the [facility] ED on 01/28 for worsening respiratory symptoms. Per chart review, the patient was seen at the [facility] ED on 01/22 for progressive cough, SOB, and THOMPSON since his heart ablation at [facility]. He reportedly had an aspiration event shortly after his ablation per the ED documentation. Chest xray on that visit was read as no acute process. CTA of the chest was negative for PE and was read as mild BL pulmonary infiltrates concerning for pneumonia. CBC, CMP, high sen trop, and full respiratory biofire were unremarkable. The patient was given 20 mg IV Sould- Medrol and a DuoNeb treatment with improvement in symptoms. He was discharged on a course of Augmentin. Today, the patient was noted to be tachycardic with HR of 93 and hypoxic at 88% on RA. Labs including CBC, CMP, high sen trop, and full respiratory biofire were again, unremarkable. Chest xray again today was read as no acute findings. Prior to admission the patient was given an albuterol treatment, 2gm Ceftriaxone, and 10 mg IV dexamethasone. At the time of the exam the patient was sitting in bed in no acute distress with his bedside, history was obtained from both. The patient was admitted to [facility] from 03/12-03/15 for scheduled cardiac ablation for his hx of afib. His states that the procedure ended up taking approximately 8 hours. The primary team reported to her after the procedure that they noted blood when the patient was extubated. They told her that they did not see any acute signs of bleeding on re-examination after extubation. After his procedure the patient was coughing up bloody sputum for several hours. The patient was started of Tikosyn prior to discharge and tolerated it well. They confirm that after discharge he experienced progressive cough with green sputum, SOB, and THOMPSON prompting his initial ED visit on 01/22. He has been taking his Augmentin as prescribed without improvement in his symptoms. Of note, the patient states that a few days ago he cough up a large amount of white sputum. He thinks there was a piece of plastic in the sputum prior to spitting it in the garbage. When asked, he states that he has smoked cigarettes "off -and-on" for approximately 10 years. He quite smoking approximately one year ago. He denies recent fever, chest pain, recurring bloody sputum/hemoptysis, LW selling, nausea, vomiting, abd pain, dysuria, hematuria, melena, diarrhea, and recent trauma. He states that he was instructed to hold his eliquis for 5 days prior to his ablation and was restarted on Eliquis prior to discharge; he has not missed any doses of Eliquis since. He is a full code and would want his to make medical decisions for him if he cannot make them himself. Please refer to Dr. Kasper's attestation for any changes to the treatment plan Discharge Data Allergies Allergy/AdvReac Type Severity Reaction Status Date / Time apple Allergy Severe THROAT Verified 01/22/23 23:18 SWELLS banana Allergy Severe THROAT Verified 01/22/23 23:18 SWELLS IF TOO RIPE- A LITTLE GREEN OKAY TO EAT. cantaloupe Allergy Severe THROAT Verified 01/22/23 23:18 SWELLS cucumber Allergy Severe THROAT Verified 01/22/23 23:18 SWELLS pineapple Allergy Severe THROAT Verified 01/22/23 23:18 SWELLS watermelon Allergy Severe THROAT Verified 01/22/23 23:18 SWELLS tree nut Allergy Intermediate Swelling Verified 01/22/23 23:18 of Lip/Tongue/Throat Consultations 01/28/23 16:57 ED Decision to Admit Stat 01/28/23 20:36 Consult Pulmonology Routine 01/30/23 13:43 Consult Cardiology Routine Ordered Studies 01/28/23 20:32 CT chest diagnostic w con Routine CT soft tissue neck w con Routine Hospital Course (1) SOB (shortness of breath): (2) Hypoxia: (3) Wheezing: (4) History of smoking 10-25 pack years: Plan Wheezing: Plan: -Admit to med/tele on pulse oximetry -Currently hemodynamically stable and stable on 2L NC -At this time the patient's history and presentation are most consistent with an obstructive process as he has significant inspiratory and expiratory wheezing on exam -No stridor or significant respiratory distress at this time -The patient does not have a hx of reactive airway disease and does not have a diagnosis of COPD despite his smoking hx -The patient is without a leukocytosis or focal consolidation on CXR again today. CT of the chest on 01/22 did not BL lower lung infiltrates but were read as "very mild" -He has no signs of volume overload to suggest acute CHF -Procal on admission is still negative -At this time we will treat him as reactive airway disease with an hour long DuoNeb, 40 mg IV Solu-Medrol BID, incentive spirometry, flutter therapy, and prn O2 -Will continue scheduled DuoNebs after his hour-long -As the patient is still without a leukocytosis and procal is still negative -With significant wheezing, no hx of reactive airway disease, and hx of possible foreign body cannot rule out possible foreign body causing his symptoms -Will continue Augmentin and add azithromycin for atypical coverage -Appreciate input from Pulmonary, LABA/LAMA (2) Hypoxia: Plan: -See wheezing (3) PAF (paroxysmal atrial fibrillation): Plan: -Currently in NSR -S/P 2nd cardiac ablation at [facility] on 01/10 -Continue Carvedilol and Tikosyn (4) HTN (hypertension): Plan: -Stable -Continue irbesartan (5) Hyperlipidemia: Plan: -Continue statin (6) Sarcoidosis: Plan: -No signs of granulomas or cavitations on CXR or recent CT -Continue to monitor (7) Hypothyroidism: Plan: -Conitnue levothyroxine (8) Depression: Plan: -Continue Venlafaxine Discharge Plan Discharge Items Patient Disposition: Transfer Acute Care Hospital Reason For Visit: ACUTE HYPOXIA RESPIRATORY FAILURE Discharge Diagnosis: acute hypoxia resp. failure Condition on Discharge: Fair Activity: Resume your previous activity Non-emergency contact: Primary Care Provider Call non-emergency contact if: you have any medication questions Follow-up/Referrals: Mariela Schulz MD [Primary Care Provider] - Diet: Regular Addtl Attending Provider Instructions: on augmentin and azithromycin received 2 doses in AM azithromycin 500 m/20, 01/30 Eliquis on hold. Pending Studies at Discharge: No Stand-Alone Forms: My Chronicity, Smoking Cessation Skilled Items Patient informed of condition?: Yes DNR: No Discharge Level of Care: Other Communicable Disease: No Discharge Prognosis: Stable Lines: None Urinary Catheter: No Medications and DC Order Prescriptions: Continued multivitamin Tablet 1 tab PO QAM venlafaxine 150 mg capsule,extended release 24hr 150 mg PO QAM levothyroxine 50 mcg Tablet 50 mcg PO .DAILY @NIGHT Rx Instructions: TAKE @ NIGHT, ONE HOUR AFTER EVENING MEAL. Eliquis 5 mg tablet 5 mg PO BID Qty: 60 0RF omeprazole 40 mg Capsule,Delayed Release(Dr/Ec) 40 mg PO QAM irbesartan 300 mg tablet 300 mg PO QAM pravastatin 40 mg Tablet 40 mg PO HS carvedilol 25 mg tablet 25 mg PO BID dofetilide 500 mcg capsule 500 mcg PO Q12H amoxicillin-pot clavulanate 875-125 mg tablet 1 tab PO BID 7 Days Qty: 14 0RF Discharge Orders: Discharge Order (Routine); Ordered 01/30/23 Ordered By: Raj Leone Admission Data Admit Date/Time: 01/28/23 17:57 Attending Provider: Raj Leone Admit Provider: Aryan Kasper Primary Care Provider: Mariela Schulz Other Providers: Aryan Kasper; Karlie Finn; Rigo Velasquez Coding Diagnoses SOB (shortness of breath) R06.02 Hypoxia R09.02 Wheezing R06.2 History of smoking 10-25 pack years Z87.891
[2023-01-31] MEDS: ALBUT/IPRATROP 3MG/0.5MG NEB 3 ML VIAL NEB SCH (06:59)
[2023-01-31 08:03] LABS: Basophils # (auto) 0.01 K/uL (0.00-0.20); Basophils % (auto) 0.1 %; Hematocrit (blood only) 40.3 % (42.0-52.0); Hemoglobin 12.7 g/dl (14.0-18.0); Immature Granulocytes # (auto) 0.07 K/uL (0.01-0.20); Immature Granulocytes % (auto) 0.6 %; Lymphocytes # (auto) 1.39 K/uL (1.20-3.40); Lymphocytes % (auto) 11.7 %; Mean Corpuscular Hemoglobin 25.7 pg (25.0-34.0); Mean Corpuscular Hgb Conc 31.5 g/dL (32.0-36.0); Mean Corpuscular Volume 81.6 fL (80.0-100.0); Mean Platelet Volume 10.2 fL (9.4-12.4); Monocytes # (auto) 0.74 K/uL (0.11-0.59); Monocytes % (auto) 6.2 %; Neutrophils # (auto) 9.66 K/uL (1.40-6.50); Neutrophils % (auto) 81.4 %; Platelet Count 265 K/uL (130-400); RDW Coefficient of Variation 16.1 % (11.5-14.5); Red Blood Count 4.94 M/uL (4.70-6.10); White Blood Count 11.87 K/ul (4.8-10.8)
[2023-01-31 08:07] LABS: Albumin Globulin Ratio 1.5 (0.9-2); Albumin Level 4.5 gm/dl (3.4-5.0); Bilirubin,Total 0.5 mg/dl (0.2-1.0); Creatinine Clr Calc Pharmacy 102.3 ml/min; Est GFR (African American) 95.1 ml/min; Potassium 4.9 mmol/L (3.5-5.1); Total Protein 7.5 gm/dl (6.0-8.3)
--- NOTE | 2023-01-31 08:09 | Hospitalist Progress Note ---
Date of Service January 30, 2023 Assessment & Plan (1) SOB (shortness of breath): (2) Hypoxia: (3) Wheezing: (4) History of smoking 10-25 pack years: Plan Acute respiratory failure with hypoxia Wheezing: Plan: -Admit to med/tele on pulse oximetry -Currently hemodynamically stable and stable on 2L NC -At this time the patient's history and presentation are most consistent with an obstructive process as he has significant inspiratory and expiratory wheezing on exam -No stridor or significant respiratory distress at this time -The patient does not have a hx of reactive airway disease and does not have a diagnosis of COPD despite his smoking hx -The patient is without a leukocytosis or focal consolidation on CXR again today. CT of the chest on 01/22 did not BL lower lung infiltrates but were read as "very mild" -He has no signs of volume overload to suggest acute CHF -Procal on admission is still negative -At this time we will treat him as reactive airway disease with an hour long DuoNeb, 40 mg IV Solu-Medrol BID, incentive spirometry, flutter therapy, and prn O2 -Will continue scheduled DuoNebs after his hour-long -As the patient is still without a leukocytosis and procal is still negative -With significant wheezing, no hx of reactive airway disease, and hx of possible foreign body cannot rule out possible foreign body causing his symptoms -Will continue Augmentin and add azithromycin for atypical coverage -Appreciate input from Pulmonary. DIscussed with cardiology: recommend transfer to tertiary center for pulmonary vein stenosis study. LABA/LAMA (2) Hypoxia: Plan: -See wheezing (3) PAF (paroxysmal atrial fibrillation): Plan: -Currently in NSR -S/P 2nd cardiac ablation at [facility] on 01/10 -Continue Carvedilol and Tikosyn (4) HTN (hypertension): Plan: -Stable -Continue irbesartan (5) Hyperlipidemia: Plan: -Continue statin (6) Sarcoidosis: Plan: -No signs of granulomas or cavitations on CXR or recent CT -Continue to monitor (7) Hypothyroidism: Plan: -Conitnue levothyroxine (8) Depression: Plan: -Continue Venlafaxine Admission and Anticipated Discharge Date Admission Date: January 28, 2023 Subjective Patient reports no improvement in his symptoms. Review of Systems Review of Systems: All systems reviewed & are unremarkable except as noted in HPI & below Physical Exam Physical Exam: General: In no acute distress, stated age, ill appearing but non-toxic appearing HEENT: Normocephalic, atraumatic, no scleral icterus, pupils around round, sy mmetrical, and reactive to light, moist mucus membranes, trachea midline, no thyromegaly Chest/Pulm: No respiratory distress, symmetrical chest expansion, significant expiratory wheezing thoughout Cardiac: RRR, no murmurs noted Abdomen: Negative for ascites and bruising, normoactive bowel sounds, soft, non- tender to palpation throughout Musculoskeletal: Symmetrical and without signs of acute trauma, upper and lower extremities with full ROM, no atrophy, spasticity, or flaccidity Extremities: Radial, dorsalis pedis, and posterior tibial pulses are intact and symmetrical, no edema noted in the BL LE's Skin: Warm, dry, no rashes , lesions, or scars noted Neuro: Alert and oriented to person, place, month, year, and president, no focal defects, CN II-XII tested and intact, finger to nose test negative, no tremors noted Psych: No acute distress, calm and cooperative during the exam Results & Data Results & Data Vital Signs (Past 12 Hours) Vital Signs Temp Pulse Pulse Resp BP Pulse Ox O2 Del Method 01/31/23 07:48 36.4 C L 67 18 152/85 H 98 Nasal Cannula 01/31/23 07:00 86 18 94 Nasal Cannula 01/31/23 04:35 36.7 C 73 20 144/85 H 93 Nasal Cannula 01/31/23 02:16 Nasal Cannula 01/30/23 23:54 37.0 C 76 18 171/90 H 96 Nasal Cannula 01/30/23 22:29 79 O2 Flow Rate 01/31/23 07:48 2 01/31/23 07:00 2 01/31/23 04:35 2 01/31/23 02:16 2 01/30/23 23:54 2 01/30/23 22:29 PG Care Time/CCT Total # of Minutes Spent Total Time Spent with Patient: Total time spent is greater than 50% in coordination of care (as documented) at patient's floor/unit and/or counseling patient: Coding Level of Care Code 26306 SUB INP/OBS CARE 2/35MIN Diagnoses SOB (shortness of breath) R06.02 Hypoxia R09.02 Wheezing R06.2 History of smoking 10-25 pack years Z87.896
[2023-01-31 08:27] LABS: Prothrombin Time 11.2 Seconds (9.0-12.0)
[2023-01-31] MEDS: DOFETILIDE 125 MCG CAPSULE PO SCH (09:07)
[2023-01-31] MEDS: AMOXICILLIN/CLAVULANATE 875 MG TAB PO SCH (09:07)
[2023-01-31] MEDS: PANTOprazole 40 MG TAB PO SCH (09:07)
[2023-01-31] MEDS: VENLAFAXINE HCL XR 150 MG CAPXR PO SCH (09:08)
[2023-01-31] MEDS: FLUTICASONE/VILANTEROL 100/25MCG 14 PUFFS/INHALER INH SCH (09:08)
[2023-01-31] MEDS: LOSARTAN POTASSIUM 50 MG TAB PO SCH (09:08)
[2023-01-31] MEDS: carvediloL 25 MG TAB PO SCH (09:08)
[2023-01-31] MEDS: methylPREDNISolone 40 MG in SYRINGE 0 ML IV SCH (09:08)
--- NOTE | 2023-01-31 09:19 | Pulmonology Progress Note ---
Date of Service January 31, 2023 Assessment & Plan (1) SOB (shortness of breath): (2) Hypoxia: (3) Wheezing: (4) History of smoking 10-25 pack years: Plan IMPRESSION: 57-year-old male presenting with upper respiratory infection, persistent wheezing, and dyspnea exertion after recently undergoing atrial flutter ablation procedure. Procedure did result in a prolonged intubation and apparently the patient had bleeding issues necessitating bronchoscopy at that time. Full details were not available to review. RECOMMENDATIONS: 1. Shortness of breath -from a pulmonary perspective, the patient has improved. He is on room air at this time. He has much less wheezing on exam today. Patient can complete his course of oral prednisone and continue with ICS/LABA inhaler as well as being provided a rescue inhaler to be used in the interim. Outpatient pulmonary function testing is warranted. Again, as recommended by the patient's depilatory painter, he likely warrants evaluation for anatomic assessment given his recent cardiac intervention. Thankfully, echocardiogram does not demonstrate atrial defect. Otherwise, from a pulmonary perspective, the patient has improved and can follow-up with his primary care provider pulmonary in the outpatient setting. 2. Hypoxia - Blood gas showed no evidence of hypercarbia. He is not anemic. Bicarb levels normal. CT showed no significant parenchymal disease. There did not appear to be any pulmonary hypertension identified. Formal two-step will be required. 3. Wheezing - Unclear etiology but certainly the amount of blood described by the patient in the airways could have caused some degree of bronchospasm. Would continue with prednisone at this point in time. Outpatient PFTs recommended. Wheezing improved at this time. 4. History of smoking -trivial tobacco history in the past. Outpatient PFTs recommended. 5. Obstructive sleep apnea - Continue with home CPAP settings. Thank you for allowing us to participate in the care of this pleasant patient. Pulmonary medicine will sign off at this time. Admission and Anticipated Discharge Date Admission Date: January 28, 2023 Supervising Physician Co-Signing Physician Notes agree with AP as noted by FRANCISCO JAVIER. Pulmonary to sign off. Can see pt in outpatient setting if needed. Call if ?s Subjective Patient was seen and evaluated at bedside. He reports that he has been ambulating to and from the restroom without dyspnea which is an improvement for him. He has been off oxygen at this point. He reports overall feeling somewhat better. He reports less wheezing as well. Review of Systems Review of Systems: Unchanged from admission. Physical Exam Physical Exam: VITAL SIGNS - Vital signs and nursing notes were reviewed. GENERAL - 57-year-old male appearing his stated age who is in no acute distress. Communicates well with provider and answers questions appropriately. LUNGS - Auscultation reveals improved expiratory wheezing only appreciated at the bases at this time. CARDIAC - RRR with S1/S2. No murmur, rubs, or gallops appreciated. ABDOMEN - Abdominal inspection demonstrates an obese abdomen. BS normoactive all four quadrants. No tenderness, palpable masses, or ascites noted. PSYCH - A&Ox3 and cooperates fully with examiner. Pt is very pleasant and interacts well with examiner. Results & Data Results & Data Vital Signs (Past 12 Hours) Vital Signs Temp Pulse Pulse Resp BP Pulse Ox O2 Del Method 01/31/23 07:48 36.4 C L 67 18 152/85 H 98 Nasal Cannula 01/31/23 07:00 86 18 94 Nasal Cannula 01/31/23 04:35 36.7 C 73 20 144/85 H 93 Nasal Cannula 01/31/23 02:16 Nasal Cannula 01/30/23 23:54 37.0 C 76 18 171/90 H 96 Nasal Cannula 01/30/23 22:29 79 O2 Flow Rate 01/31/23 07:48 2 01/31/23 07:00 2 01/31/23 04:35 2 01/31/23 02:16 2 01/30/23 23:54 2 01/30/23 22:29 PG Care Time/CCT Total # of Minutes Spent Total Time Spent with Patient: Total time spent is greater than 50% in coordination of care (as documented) at patient's floor/unit and/or counseling patient: Coding Level of Care Code 40561 SUB INP/OBS CARE 2/35MIN Diagnoses SOB (shortness of breath) R06.02 Hypoxia R09.02 Wheezing R06.2 History of smoking 10-25 pack years Z87.891
[2023-01-31] MEDS ORDERED: AZITHROMYCIN 250 MG TAB PO ONE (10:12)
--- NOTE | 2023-01-31 12:36 | Discharge Summary ---
Date of Service January 31, 2023 Principal Diagnosis sob. Discharge Exam General: In no acute distress, HEENT: Normocephalic, atraumatic, no scleral icterus, pupils around round, symmetrical, and reactive to light, moist mucus membranes, trachea midline, no thyromegaly Chest/Pulm: No respiratory distress, symmetrical chest expansion, clear Cardiac: RRR, no murmurs noted Abdomen: Negative for ascites and bruising, normoactive bowel sounds, soft, non-tender to palpation throughout Musculoskeletal: Symmetrical and without signs of acute trauma, upper and lower extremities with full ROM, no atrophy, spasticity, or flaccidity Extremities: Radial, dorsalis pedis, and posterior tibial pulses are intact and symmetrical, no edema noted in the BL LE's Skin: Warm, dry, no rashes , lesions, or scars noted Neuro: Alert and oriented to person, place, month, year, and president, no focal defects, CN II-XII tested and intact, finger to nose test negative, no tremors noted Psych: No acute distress, calm and cooperative during the exam Discharge Data Allergies Allergy/AdvReac Type Severity Reaction Status Date / Time apple Allergy Severe THROAT Verified 01/22/23 23:18 SWELLS banana Allergy Severe THROAT Verified 01/22/23 23:18 SWELLS IF TOO RIPE- A LITTLE GREEN OKAY TO EAT. cantaloupe Allergy Severe THROAT Verified 01/22/23 23:18 SWELLS cucumber Allergy Severe THROAT Verified 01/22/23 23:18 SWELLS pineapple Allergy Severe THROAT Verified 01/22/23 23:18 SWELLS watermelon Allergy Severe THROAT Verified 01/22/23 23:18 SWELLS tree nut Allergy Intermediate Swelling Verified 01/22/23 23:18 of Lip/Tongue/Throat Consultations 01/28/23 16:57 ED Decision to Admit Stat 01/28/23 20:36 Consult Pulmonology Routine 01/30/23 13:43 Consult Cardiology Routine Ordered Studies 01/28/23 20:32 CT chest diagnostic w con Routine CT soft tissue neck w con Routine Hospital Course (1) SOB (shortness of breath): -Admit to med/tele on pulse oximetry -Currently hemodynamically stable and stable on 2L NC -At this time the patient's history and presentation are most consistent with an obstructive process as he has significant inspiratory and expiratory wheezing on exam -No stridor or significant respiratory distress at this time -The patient does not have a hx of reactive airway disease and does not have a diagnosis of COPD despite his smoking hx -The patient is without a leukocytosis or focal consolidation on CXR again today. CT of the chest on 01/22 did not BL lower lung infiltrates but were read as "very mild" -He has no signs of volume overload to suggest acute CHF -Procal on admission is still negative -At this time we will treat him as reactive airway disease with an hour long DuoNeb, 40 mg IV Solu-Medrol BID, incentive spirometry, flutter therapy, and prn O2 -Will continue scheduled DuoNebs after his hour-long -As the patient is still without a leukocytosis and procal is still negative -With significant wheezing, no hx of reactive airway disease, and hx of possible foreign body cannot rule out possible foreign body causing his symptoms -Will continue Augmentin and add azithromycin for atypical coverage -Appreciate input from Pulmonary. DIscussed with cardiology: recommend transfer to tertiary center for pulmonary vein stenosis study. LABA/LAMA ON 01/31, Patient reported feeling better and no longer wanted to be transferred to tertiary center. Patiwnt was able to ambulate without supplemental oxygen. Informed cardiology,who were agreeable. Told patient to return to the ER, if symptoms return. Patient should likely not be admitted to [facility] and transferred dierectly to [facility] from the Ed if symptoms recur, as patient would need pulmonary vein stenosis study. Discharge on antibiotics state below. (2) Hypoxia: Plan: -See wheezing (3) PAF (paroxysmal atrial fibrillation): Plan: -Currently in NSR -S/[place] [facility] [place]Continue Carvedilol and Tikosyn (4) HTN (hypertension): Plan: -Stable -Continue irbesartan (5) Hyperlipidemia: Plan: -Continue statin (6) Sarcoidosis: Plan: -No signs of granulomas or cavitations on CXR or recent CT -Continue to monitor (7) Hypothyroidism: Plan: -Conitnue levothyroxine (8) Depression: Plan: -Continue Venlafaxine (2) Hypoxia: (3) Wheezing: (4) History of smoking 10-25 pack years: Total Time Total Time Spent Total Time Spent (In Minutes): 32 Discharge Plan Discharge Items Patient Disposition: Home - Self-Care Reason For Visit: ACUTE HYPOXIA RESPIRATORY FAILURE Discharge Diagnosis: acute hypoxia resp. failure Condition on Discharge: Fair Activity: Resume your previous activity Non-emergency contact: Primary Care Provider Call non-emergency contact if: you have any medication questions Follow-up/Referrals: Mariela Schulz MD [Primary Care Provider] - Diet: Regular Addtl Attending Provider Instructions: Followup with Cardiology as an outpatient. If your symptoms worsen, please return to the hospital. Pending Studies at Discharge: No Stand-Alone Forms: My [facility] [employer], Smoking Cessation Medications and DC Order Prescriptions: New fluticasone furoate-vilanterol [Breo Ellipta] 100-25 mcg/dose blister with device 1 inh inhalation DAILY Qty: 60 0RF prednisone 10 mg tablet 10 mg PO DAILY Qty: 12 0RF Rx Instructions: Take 3 tablets for 2 days once in the morning then 2 tablets for 2 days, then 1 tablet for 2 days Continued multivitamin Tablet 1 tab PO QAM venlafaxine 150 mg capsule,extended release 24hr 150 mg PO QAM levothyroxine 50 mcg Tablet 50 mcg PO .DAILY @NIGHT Rx Instructions: TAKE @ NIGHT, ONE HOUR AFTER EVENING MEAL. Eliquis 5 mg tablet 5 mg PO BID Qty: 60 0RF omeprazole 40 mg Capsule,Delayed Release(Dr/Ec) 40 mg PO QAM irbesartan 300 mg tablet 300 mg PO QAM pravastatin 40 mg Tablet 40 mg PO HS carvedilol 25 mg tablet 25 mg PO BID dofetilide 500 mcg capsule 500 mcg PO Q12H Discharge Orders: Discharge Order (Routine); Ordered 01/31/23 Ordered By: Raj Leone Admission Data Admit Date/Time: 01/28/23 17:57 Attending Provider: Raj Leone Admit Provider: Aryan Kasper Primary Care Provider: Mariela Schulz Other Providers: Aryan Kasper; Karlie Finn; Rigo Velasquez Other Interventions: Discharge Summary Assessment (RN) Last Done: 01/31/23 10:37 Coding Level of Care Code 33342 INP/OBS DISCH >30 MIN Diagnoses SOB (shortness of breath) R06.02 Hypoxia R09.02 Wheezing R06.2 History of smoking 10-25 pack years Z87.891
--- NOTE | 2023-01-31 22:53 | Electrocardiogram Report ---
Test Reason : Blood Pressure : / mmHG Vent. Rate : 092 BPM Atrial Rate : 092 BPM P-R Int : 152 ms QRS Dur : 086 ms QT Int : 378 ms P-R-T Axes : 089 069 062 degrees QTc Int : 467 ms Normal sinus rhythm Normal ECG When compared with ECG of 22-JAN-2023 17:46, No significant change was found Confirmed by Broderick Matos ([id number]) on 01/31/2023 10:53:37 PM Referred By: Confirmed By:Broderick Matos
== END 2023-01-31 10:54 | disposition home or self-care (01) | DRG 189 ==
LOC: ED 14:23 → EDINP 17:57 → SUATTDRO 17:57 → EDINP 19:37 → 2N 01-29 17:02